=== PATIENT | male | born 1960 | race Caucasian/White ===

== ENCOUNTER 2023-05-02 21:52 | Emergency (ER) | payer SELFPAY ==
--- OUTSIDE RECORDS SUMMARY | 2023-05-02 21:57 | XMS REPORT | Continuity of Care Document ---
:1960 Author Organization [facility] t Address [address] [place] [place] [address] Care Team Providers Name Role Phone Brayden Damon Attending Clinician Unavailable Keith Obrien Attending Clinician Unavailable Merlyn Le Attending Clinician Unavailable Anjum Lafleur Attending Clinician Unavailable Physician, No Primary or Family Admitting Clinician UnavailMerlyn Montoya Admitting Clinician Unavailable Payers Payer Name Policy Type Policy Number Effective Date Expiration Date S ource Problems This patient has no known problems. Allergies, Adverse Reactions, Alerts Allergy Allergy Status Severity Reaction(s) Onset Inactive Treating Comm ents Source Name Type Date Date Clinician [place]ulf[place] DA Active [place] RASH 2022-0 [facility] (Sulfona 5-13 Clear mide 00:00: Judd Antibiot 00 [facility] lisinopr DA Active [place] ANGIOEDEMA [facility] [place] 5-13 Clear 00:00: Judd 00 [facility] Unable DA Active [facility]22[facility] Assess 00:00: 00 No Known DA Active U 0 [place] [facility] Drug 4-26 Allergie 00:00: s 00 [place]ulf[place] DA Active [place] 2022-0 [facility] (Sulfona 4-23 [place] mide 00:00: d Antibiot [address] [place] [address] lisinopr DA Active [place] ANGIOEDEMA [facility] [place] 4-23 [place] 00:00: d 00 [facility] lisinopr DA Active [place] ANGIOEDEMA [facility] [place] 4-14 [place] 00[facility]: d 00 [facility] [place] R[place] [facility] ([place]ulf[place] 4-06 Clear mide 00:00: Judd Antibiot 00 [facility] Sulf[place] DA Active [place] R[place] [facility] ([place]ulf[place] 4-04 [place] m[place] 00:00: d Antibiot 00 [facility] Sulfa DA Active [place] 2019-11 [facility] (Sulfona 0-04 [place] m[facility] 00:00: d Antibiot 00 [facility] [place] 2019-11 [facility] ([place]ulf[place] 0-04 [place] m[place] 00:00: d Antibiot 00 [facility] Center Sulfa DA Active U [facility] (Sulfona 9-15 [place] m[place] 00:00: d Antibiot 00 [facility] ics[facility] Center Sulfa DA Active U UNK [facility] (Sulfona 9-15 [place] mide 00:00: d Antibiot 00 [facility] ics) Center Medications This patient has no known medications. Procedures Procedure Date / Time Performed Performing Clinician Sourc e [id number] 2022-02-26 00:00:00 [facility] [id number] 2022-02-26 00:00:00 [facility] [id number] 2022-02-26 00:00:00 [facility] [id number] 2022-02-25 00:00:00 [facility] Encounters Start End Encounter Admission Attending Care Care Encounter Source Date/Time Date/Time Type Type Clinicians Facility Department ID 2020-08-26 Inpatient HCAMN CHARAN [id number] [facility] 11:19:00 94 [facility] 2023-04-04 2023-04-09 Emergency EM HENNY Damon MEXP [id number] [facility] 00:06:00 07:45:00 Brayden 09 [facility] 2023-04-04 2023-04-04 Outpatient JH Damon LABRukhsana [id number] [facility] 23:07:00 23:07:00 [facility] 2023-[facility]-18 Emergency [facility] [id number] [place] [facility] 09:48:00 09:48:00 75 2023-03-18 2023-03-18 Emergency Emergency Camille, [facility] [id number] [place] [facility] 09:48:00 09:48:00 Keith 75 2023-03-15 2023-03-17 Emergency EM Nelson, [facility] MEXP [id number] [facility] 09:43:00 12:52:00 Brayden 18 [facility] 2022-02-25 2022-03-11 Emergency EM Rey, [facility] [id number] [facility] 03:28:00 15:45:00 Merlyn 92 [facility] 2022-02-26 2022-02-26 Outpatient Le, [facility] LABO [id number] [facility] 23:10:00 23:10:00 Merlyn 12 [facility] 2021-12-11 2021-12-11 Emergency EM Miquel, [facility] MEXP [id number] [facility] 03:24:00 17:17:00 DeShauris 18 [facility] Results Test Description Test Time Test Comments Results Result Comments Source BASIC METABOLIC PANEL 2023-04-04 01:16:00 Test Item Value Reference Range Interpretation Comme nts SODIUM (test code = NA) 136 mmol/l 134.0-147.0 N POTASSIUM (test code = K) 3.4 mmol/L 3.6-5.2 L CHLORIDE (test code = CL) 100 mmol/l 98.0-107.0 N CARBON DIOXIDE (test code = 23.2 mmol/l 21.0-33.0 N CO2) ANION GAP (test code = GAP) 16.2 0-20 N GLUCOSE (test code = GLU) 88 mg/dl 70.0-110.0 N BLOOD UREA NITROGEN (test 16 mg/dl 7.0-18.0 N code = BUN) GLOMERULAR FILTRATION RATE 78 mL/min T he Glomerular Filtration Rate (test code = GFR) is a calcu lated parameterbased on serum Creati nine, patient age and sex. GF R valuesless than 60 mL/min/ 1.73 square meters are miya cative ofChronic Kidney Disease. Values less than 15 mL/min/ 1.73square meters indicate Kidney failure. The calculation forGFR is based on the CKD-EPI (2020) calculation. Th is formulais race indifferen t and is the recommended for dior for GFRby the National [facility] for Adults.The GFR will not calculate if th e sex is unknown or if thepatien t's age is <18 years. CREATININE (test code = 1.08 mg/dL 0.60-1.30 N CREAT) CALCIUM (test code = CA) 9.2 mg/dl 8.0-10.5 N ESTIMATED CREAT CLEARANCE 71 mL/min >30 (test code = ECRCL) HEPATIC FUNCTION PANEL [id number] 01:16:00 Test Item Value Reference Range Interpretation Comments TOTAL PROTEIN (test code = PROT) 7.4 GM/DL 6.0-8.1 N ALBUMIN (test code = ALB) 4.0 gm/dL 3.2-4.7 N BILIRUBIN TOTAL (test code = BILT) 0.6 mg/dl 0.0-1.0 N BILIRUBIN DIRECT (test code = 0.2 mg/dl 0.0-0.3 N BILD) SGOT/AST (test code = AST) 32 Units/L 15-37 N SGPT/ALT (test code = ALT) 32 Units/L 12.0-78.0 N ALKALINE PHOSPHATASE TOTAL (test 80 Units/L 50.0-136.0 N code = ALKP) [id number] 01:16:00 Test Item Value Reference Range Interpretation Comments ACETAMINOPHEN (test <2.0 mcg/ml 10.0-30.0 L Result i s in code = ACET) Microgram per milliliter. [id number] 01:16:00 Test Item Value Reference Range Interpretation Comments SALICYLATE (test code = SHWAN) 1.1 mg/dl 2.8-20.0 L [id number] 01:16:00 Test Item Value Reference Range Interpretation Comments ALCOHOL (test code 0.00 gm/dL 0.00-0.00 N ETHYL ALC OHOL VALUES - = ALC) INTERPRETATION: 0.050 GM/DL - NOT INT OXICATED 0.100 GM/DL - INTOXICATED 0.3 50-0.450 GM/DL - SEVEREL Y INTOXICATED 0.5 50 GM/DL- FATAL INTOXICAT ION COVID 19 Asymptomatic IH [id number] 01:15:00 Test Item Value Reference Range Interpretation Comments COVID 19 NEGATIVE NEGATIVE Negative result s should be Asymptomatic IH AG treated a s presumptive and (test code = ifinconsistent with COVNONPUIAG) clinical signs and symptoms, or ne cessaryfor patient managem ent, should be tested with an alternativemole cular assay. Negative results do not preclude OGRC-[id number]-[id number] tion and should not be u sed as the sole basis forp atient management deci sions. Negative result s should beconsidered in the context of a pa tient's recent exposure s,history, presence of cli nical signs and symptoms consistentwith COVID-19. DRUGS OF ABUSE SCREEN [id number] 01:13:00 Test Item Value Reference Interpretation Comments Range URN COCAINE (test POSITIVE NEGATIVE A UNCONFIRME D INITIAL code = COCAURN) SCREENING ON LY; SUGGEST ADDITIONALCONFI RMATORY TESTING.Cocaine cut-off concentration: 300 ng/mL URN CANNABINOIDS NEGATIVE NEGATIVE Cannabinoid s cut-off (test code = concentration: 50 ng/mL CANNABURN) URN AMPHETAMINE POSITIVE NEGATIVE A UNCONFIRMED INITIAL (test code = SCREENING ONLY; SUGGEST AMPHETURN) ADDITIONALCONFI RMATORY TESTING.Ampheta mine cut-off concentration: 1000 ng/mL URN BARBITURATE NEGATIVE NEGATIVE Barbiturate cut-off (test code = concentration: 200 ng/mL BARBITURN) URN BENZODIAZEPINE NEGATIVE NEGATIVE Benzodiaz epine cut-off (test code = concentration: 200 ng/mL BENZOURN) URN OPIATES (test NEGATIVE NEGATIVE Opiates cu t-off code = OPIATURN) concentrati on: 2000 ng/mL URN PHENCYCLIDINE NEGATIVE NEGATIVE Phencyclid ine(PCP) cut-off (PCP) (test code = concentra tion: 25 ng/ml PHENCURN) URN METHADONE (test NEGATIVE NEGATIVE Methadon e cut-off code = METHAURN) concentrati on: 300 ng/mL WHAT DRUGS HAVE BEEN TAKEN? screenUA RFLX MICR CULT IF [id number] 01:08:00 Test Item Value Reference Range Interpretation Comments UA COLOR (test code = DARK YELLOW COLU) UA APPEARANCE (test code CLEAR = APPU) UA GLUCOSE DIPSTICK NORMAL mg/dl NORMAL (test code = DGLUU) UA BILIRUBIN DIPSTICK 1 mg/dL mg/dL NEGATIVE A (test code = BILU) UA KETONE DIPSTICK (test 15 mg/dl mg/dl NEGATIVE A code = KETU) UA SPECIFIC GRAVITY 1.025 1.000-1.030 (test code = SGU) UA BLOOD DIPSTICK (test 10 Vega/micL Vega/micL NEGATIVE A code = TAMAR) UA PH DIPSTICK (test 6.0 5.0-9.0 code = LÁZARO) UA PROTEIN DIPSTICK 30 mg/dl NEGATIVE (test code = PROU) UA UROBILINIOGEN 4.0 mg/dl mg/dl NORMAL A DIPSTICK (test code = URO) UA NITRITE DIPSTICK NEGATIVE NEGATIVE (test code = MALIK) UA LEUKOCYTE ESTERASE 100 Eloy/micL Eloy/micL NEGATIVE A DIPSTICK (test code = LEUU) UA WBC (test code = 10-15 WBC/HPF NONE A WBCU) UA RBC (test code = 0-2 RBC/HPF 0-3 RBCU) UA EPITHELIAL CELLS 1-3 EPI/HPF 0-3 (test code = EPIU) UA BACTERIA (test code = FEW NONE BACU) UA CALCIUM OXALATE MOD CRYSTALS (test code = CAOXU) UA MUCUS (test code = 3+ MUCU) UA AMORPHOUS SEDIMENT MOD NONE (test code = AMORU) UA SPERM (test code = SPERMATOZOA SEEN SPERMU) Indication for culture: Dysuria/FrequencySpecimen Description: CLEAN CATCHCBC W/AUTO [id number] 00:58:00 Test Item Value Reference Range Interpretation Comments WHITE BLOOD CELL (test code = 10.1 K/mm3 4.5-11.0 N WBC) RED BLOOD CELL (test code = 4.38 M/mm3 4.40-5.90 L RBC) HEMOGLOBIN (test code = HGB) 13.0 gm/dL 13.0-17.0 N HEMATOCRIT (test code = HCT) 38.5 % 36.0-48.0 N MEAN CELL VOLUME (test code = 87.9 UM3 80.0-94.0 MCV) MEAN CELL HGB (test code = MCH) 29.7 UUG 25.5-32.5 N MEAN CELL HGB CONCETRATION 33.8 gm/dL 29.0-35.5 N (test code = MCHC) RED CELL DISTRIBUTION WIDTH 13.2 % 11.5-15.0 N (test code = RDW) RED CELL DISTRIBUTION WIDTH SD 42.7 fL 34.8-50.2 N (test code = RDW-SD) PLATELET COUNT (test code = 296 K/mm3 150-400 N PLT) MEAN PLATELET VOLUME (test code 10.1 fl 7.4-10.4 N = MPV) NEUTROPHIL % (test code = NT%) 66.4 % 49.0-76.0 N IMMATURE GRANULOCYTE % (test 0.3 % 0.0-0.4 N code = IG%) LYMPHOCYTE % (test code = LY%) 19.5 % 23.0-38.0 L MONOCYTE % (test code = MO%) 11.4 % 1.0-10.0 H EOSINOPHIL % (test code = EO%) 1.8 % 1.0-5.0 N BASOPHIL % (test code = BA%) 0.6 % 0.0-1.0 N NUCLEATED RBC % (test code = 0.0 % 0.0-0.1 N NRBC%) NEUTROPHIL # (test code = NT#) 6.7 K/mm3 2.4-6.3 H IMMATURE GRANULOCYTE # (test 0.03 x10 3/uL 0.00-0.07 N code = IG#) LYMPHOCYTE # (test code = LY#) 2.0 K/mm3 1.2-4.0 N MONOCYTE # (test code = MO#) 1.2 K/mm3 0.0-0.6 H EOSINOPHIL # (test code = EO#) 0.2 K/MM3 0.0-0.7 N BASOPHIL # (test code = BA#) 0.1 K/mm3 0.0-0.2 N NUCLEATED RBC # (test code = 0.00 X10 3uL 0.00-0.01 N NRBC#) UA, Urinalysis Rflx [id number] 10:08:00 Test Item Value Reference Range Interpretation Comments Color,Urine (test code = UCOL) Yellow Yellow Clarity,Urine (test code = Clear Clear UCLAR) Ph, Urine (test code = UPH) 7.0 5.0-9.0 N Specific [place],Urine (test 1.025 1.005-1.030 N code = USG) Blood,Urine (test code = UBLD) Negative mg/dL Negative Protein,Urine (test code = Trace mg/dL Negative A UPRO) Glucose,Urine (UA) (test code Negative mg/dL Negative = UGLU) Ketones,Urine (test code = 15 mg/dL Negative A UKET) Nitrate,Urine (test code = Negative Negative UNIT) Bilirubin,Urine (test code = Negative mg/dL Negative UBIL) Urobilinogen,Urine (test code 1.0 E.U./dL Normal = UURO) Leukocyte Esterase,Urine (test Trace mg/dL Negative A code = ULEU) Drug Screen,[id number] 10:08:00 Test Item Value Reference Range Interpretation Comments PCP Phencyclidine Screen,Urine (test Negative Negative code = PCPU) Amphetamine Screen,Urine (test code Negative Negative = AMPU) Methadone Screen,Urine (test code = Negative Negative METHU) Opiate Screen,Urine (test code = Negative Negative UOPIS) Barbituates Screen,Urine (test code Negative Negative = BARBU) Benzodiazepines Screen,Urine (test Negative Negative code = UBENZS) Cocaine Screen,Urine (test code = Positive Negative A UCOCS) Cannabinoid Screen,Urine (test code Positive Negative A = UTHCS) Propoxyphene Screen, Urine (test Negative Negative code = UPROP) Urine [id number] 10:08:00 Test Item Value Reference Range Interpretation Comments RBC,Urine (test code = URBCUF) 6-10 /HPF 0-2 A WBC,Urine (test code = UWBCUF) 0-5 /HPF 0-5 Epithelial Cell,Urine (test None Seen /HPF 0-5 code = UECUF) Casts,Urine (test code = 0-5 /LPF None Seen UCASTUF) Bacteria,Urine (test code = None Seen /hpf None Seen UBACTUF) Complete Blood Count Auto [id number] 09:53:00 Test Item Value Reference Range Interpretation Comments White Blood Count (test code = 8.2 x10 3/uL 4.4-10.5 N WBCT) Red Blood Count (test code = 4.60 x10 6/uL 4.10-5.70 N RBC) Hemoglobin (test code = HGBT) 13.9 g/dL 13.4-17.4 N Hematocrit (test code = HCTT) 43.0 % 38.7-52.0 N Mean Corpuscular Volume (test 93.50 fL 80.00-100.00 N code = MCV) Mean Corpuscular Hemoglobin 30.2 pg 27.0-32.5 N (test code = MCH) Mean Corpuscular HGB Conc (test 32.30 g/dL 32.00-37.50 N code = MCHC) RDW Coefficient of Variation 14.1 % 11.5-14.5 N (test code = RDWCV) Platelet Count (test code = 225 x10 3/uL 140.0-440.0 N PLTT) Mean Platelet Volume (test code 10.0 fL = MPV) Immature Granulocytes % (Auto) 0.2 % 0.0-5.0 N (test code = IMMGRAN%) Neutrophils % (Auto) (test code 69.3 % 36.0-70.0 N = NE%) Lymphocytes % (Auto) (test code 18.4 % 12.0-44.0 N = LY%) Monocytes % (Auto) (test code = 10.7 % 0.0-11.0 N MO%) Eosinophils % (Auto) (test code 1.0 % 0.0-7.0 N = EO%) Basophils % (Auto) (test code = 0.4 % 0.0-2.0 N BA%) Immature Granulocytes # (Auto) 0.02 x10 3/uL (test code = IMMGRAN#) Neutrophils # (Auto) (test code 5.7 x10 3/uL 1.6-7.4 N = NE#) Lymphocytes # (Auto) (test code 1.51 x10 3/uL 0.50-4.60 N = LY#) Monocytes # (Auto) (test code = 0.88 x10 3/uL 0.00-1.20 N MO#) Eosinophils # (Auto) (test code 0.08 x10 3/uL 0.00-0.74 N = EO#) Basophils # (Auto) (test code = 0.03 x10 3/uL 0.00-0.21 N BA#) nRBC Abs (test code = NRBCA) 0 nRBC Pct (test code = NRBCP) 0 % Comprehensive Metabolic [id number] 09:53:00 Test Item Value Reference Range Interpretation Comments SODIUM (test code = NA) 138.0 mmol/L 136.0-145.0 N Potassium,K (test code = 3.8 mmol/L 3.0-5.1 N K) Chloride (test code = 105 mmol/L 98-107 N CL) Carbon Dioxide (test 26 mmol/L 20-31 N code = CO2) Anion Gap (test code = 7 mmol/L 5-15 N GAP) Blood Urea Nitrogen 23 mg/dL 9-23 N (test code = BUN) Creatinine (test code = 1.08 mg/dL 0.55-1.02 H CREATT) Creatinine Clr Calc 70.52 mL/min Pharmacy (test code = CRCLPHA) Estimated Glomerular 78 See_Comment L Reporte d eGFR is Filt Rate (test code = based on the EGFR.XX) CKD-EPI 202 equation thatdo es not use a race coefficient. Additional information can be found at:[id number]_m cb_ egfr_summary_fl rosalia 5.pdf (kidney.o rg) [Automated message] The system which generated this result transmit juan jose reference range : >=90 ml/min/1.73m2. The reference range was not used to interpret this result as normal/abnormal . BUN/Creatinine Ratio 21 ratio 10-20 H (test code = BCRATIO) Glucose (test code = 200 mg/dL 74-106 H GLU) Osmolality,Calculated 295.2 (test code = OSMOC) Calcium (test code = CA) 9.8 mg/dL 8.3-10.6 N Bilirubin,Total (test 0.4 mg/dL 0.2-1.1 N code = BILIT) Aspartate Amino 38 U/L 0-34 H Transferase (test code = AST) Alanine Aminotransferase 24 U/L 10-49 N (test code = ALT) Total Protein (test code 7.3 g/dL 5.7-8.2 N = TP) Albumin Level (test code 4.7 g/dL 3.2-4.8 N = ALB) Globulin (test code = 2.6 mg/dL 2.3-3.5 N GLOB) Albumin/Globulin Ratio 1.8 ratio 0.8-2.0 N (test code = AGRATIO) Alkaline Phosphatase 88 U/L 46-116 N (test code = ALP) Ethanol [id number] 09:53:00 Test Item Value Reference Range Interpretation Comments Ethanol (test code < 3 mg/dL The pharm acological = ETOH) response to blo od alcohol levels mayvary from individual to i ndividual. The fatal hyacinth ntrationhas been reported t o be >400mg/dL. COVID 19 Asymptomatic IH [id number] 15:48:00 Test Item Value Reference Range Interpretation Comments COVID 19 NEGATIVE NEGATIVE Negative result s should be Asymptomatic IH AG treated a s presumptive and (test code = ifinconsistent with COVNONPUIAG) clinical signs and symptoms, or ne cessaryfor patient managem ent, should be tested with an alternativemole cular assay. Negative results do not preclude UFPR-AlC-9sjbtl tion and should not be u sed as the sole basis forp atient management deci sions. Negative result s should beconsidered in the context of a pa tient's recent exposure s,history, presence of cli nical signs and symptoms consistentwith COVID-19. DRUGS OF ABUSE SCREEN [id number] 11:08:00 Test Item Value Reference Interpretation Comments Range URN COCAINE (test POSITIVE NEGATIVE A UNCONFIRME D INITIAL code = COCAURN) SCREENING ON LY; SUGGEST ADDITIONALCONFI RMATORY TESTING.Cocaine cut-off concentration: 300 ng/mL URN CANNABINOIDS POSITIVE NEGATIVE A UNCONFIRMED INITIAL (test code = SCREENING ONLY; SUGGEST CANNABURN) ADDITIONALCONFI RMATORY TESTING.Cannabi noids cut-off concent ration: 50 ng/mL URN AMPHETAMINE NEGATIVE NEGATIVE Amphetamine cut-off (test code = concentration: 1000 ng/mL AMPHETURN) URN BARBITURATE NEGATIVE NEGATIVE Barbiturate cut-off (test code = concentration: 200 ng/mL BARBITURN) URN BENZODIAZEPINE NEGATIVE NEGATIVE Benzodiaz epine cut-off (test code = concentration: 200 ng/mL BENZOURN) URN OPIATES (test NEGATIVE NEGATIVE Opiates cu t-off code = OPIATURN) concentrati on: 2000 ng/mL URN PHENCYCLIDINE NEGATIVE NEGATIVE Phencyclid ine(PCP) cut-off (PCP) (test code = concentra tion: 25 ng/ml PHENCURN) URN METHADONE (test NEGATIVE NEGATIVE Methadon e cut-off code = METHAURN) concentrati on: 300 ng/mL UA RFLX MICR CULT IF [id number] 11:06:00 Test Item Value Reference Range Interpretation Comments UA COLOR (test code = COLU) YELLOW UA APPEARANCE (test code = CLEAR APPU) UA GLUCOSE DIPSTICK (test NORMAL mg/dl NORMAL code = DGLUU) UA BILIRUBIN DIPSTICK (test NEGATIVE mg/dL NEGATIVE code = BILU) UA KETONE DIPSTICK (test NEGATIVE mg/dl NEGATIVE code = KETU) UA SPECIFIC GRAVITY (test 1.015 1.000-1.030 code = SGU) UA BLOOD DIPSTICK (test NEGATIVE Vega/micL NEGATIVE code = TAMAR) UA PH DIPSTICK (test code = 6.5 5.0-9.0 LÁZARO) UA PROTEIN DIPSTICK (test NEGATIVE mg/dl NEGATIVE code = PROU) UA UROBILINIOGEN DIPSTICK NORMAL mg/dl NORMAL (test code = URO) UA NITRITE DIPSTICK (test NEGATIVE NEGATIVE code = MALIK) UA LEUKOCYTE ESTERASE NEGATIVE Eloy/micL NEGATIVE DIPSTICK (test code = LEUU) UA WBC (test code = WBCU) 0-3 WBC/HPF NONE UA RBC (test code = RBCU) 0-2 RBC/HPF 0-3 UA EPITHELIAL CELLS (test 0-3 EPI/HPF 0-3 code = EPIU) UA BACTERIA (test code = FEW NONE BACU) UA MUCUS (test code = MUCU) 1+ Indication for culture: Dysuria/FrequencySpecimen Description: CLEAN CATCHBASIC METABOLIC [id number] 10:26:00 Test Item Value Reference Range Interpretation Comments SODIUM (test code = 134 mmol/l 134.0-147.0 N NA) POTASSIUM (test 4.1 mmol/L 3.6-5.2 N code = K) CHLORIDE (test code 99 mmol/l 98.0-107.0 N = CL) CARBON DIOXIDE 29.3 mmol/l 21.0-33.0 N (test code = CO2) ANION GAP (test 9.8 0-20 N code = GAP) GLUCOSE (test code 81 mg/dl 70.0-110.0 N = GLU) BLOOD UREA NITROGEN 6 mg/dl 7.0-18.0 L (test code = BUN) GLOMERULAR 93 mL/min The Glomerular FILTRATION RATE Filtration R ate is a (test code = GFR) calculated parameterbased on serum Creatinine, pat ient age and sex. GFR va luesless than 60 mL/min/ 1.73 square meters a re indicative ofCh ronic Kidney Disease. Values less than 15 mL/min/1.73squa re meters indicate Kidney failure. The calculation for GFR is based on the CK D-EPI (2020) calculat ion. This formulais race indifferent and is the recommended for dior for GFRby the Nat nal Kidney Foundati on for Adults.The GFR will not calculate if th e sex is unknown or if thepatient's ag e is <18 years. CREATININE (test 0.93 mg/dL 0.60-1.30 N code = CREAT) CALCIUM (test code 8.6 mg/dl 8.0-10.5 N = CA) ESTIMATED CREAT 82 mL/min >30 CLEARANCE (test code = ECRCL) HEPATIC FUNCTION PANEL [id number] 10:26:00 Test Item Value Reference Range Interpretation Comments TOTAL PROTEIN (test code = PROT) 7.1 gm/dL 6.4-8.2 N ALBUMIN (test code = ALB) 3.8 gm/dl 3.2-4.7 N BILIRUBIN TOTAL (test code = BILT) 0.3 mg/dl 0.0-1.0 N BILIRUBIN DIRECT (test code = 0.1 mg/dl 0.0-0.3 N BILD) SGOT/AST (test code = AST) 18 Units/L 15-37 N SGPT/ALT (test code = ALT) 23 Units/L 12.0-78.0 N ALKALINE PHOSPHATASE TOTAL (test 89 Units/L 50.0-136.0 N code = ALKP) [id number] 10:26:00 Test Item Value Reference Range Interpretation Comments ACETAMINOPHEN (test <2.0 mcg/ml 10.0-30.0 L Result i s in code = ACET) Microgram per milliliter. [id number] 10:26:00 Test Item Value Reference Range Interpretation Comments SALICYLATE (test code = SHAWN) 1.4 mg/dl 2.8-20.0 L [id number] 10:26:00 Test Item Value Reference Range Interpretation Comments ALCOHOL (test code 0.00 gm/dL 0.00-0.00 N ETHYL ALC OHOL VALUES - = ALC) INTERPRETATION: 0.050 GM/DL - NOT INT OXICATED 0.100 GM/DL - INTOXICATED 0.3 50-0.450 GM/DL - SEVEREL Y INTOXICATED 0.5 50 GM/DL- FATAL INTOXICAT ION CBC W/AUTO [id number] 10:12:00 Test Item Value Reference Range Interpretation Comments WHITE BLOOD CELL (test code = 5.9 K/mm3 4.5-11.0 N WBC) RED BLOOD CELL (test code = 4.40 M/mm3 4.40-5.90 N RBC) HEMOGLOBIN (test code = HGB) 12.9 gm/dL 13.0-17.0 L HEMATOCRIT (test code = HCT) 40.8 % 36.0-48.0 N MEAN CELL VOLUME (test code = 92.7 UM3 80.0-94.0 N MCV) MEAN CELL HGB (test code = MCH) 29.3 UUG 25.5-32.5 N MEAN CELL HGB CONCETRATION 31.6 gm/dL 29.0-35.5 N (test code = MCHC) RED CELL DISTRIBUTION WIDTH 13.9 % 11.5-15.0 N (test code = RDW) RED CELL DISTRIBUTION WIDTH SD 47.3 fL 34.8-50.2 N (test code = RDW-SD) PLATELET COUNT (test code = 232 K/mm3 150-400 N PLT) MEAN PLATELET VOLUME (test code 10.1 fl 7.4-10.4 N = MPV) NEUTROPHIL % (test code = NT%) 57.1 % 49.0-76.0 N IMMATURE GRANULOCYTE % (test 0.2 % 0.0-0.4 N code = IG%) LYMPHOCYTE % (test code = LY%) 28.2 % 23.0-38.0 N MONOCYTE % (test code = MO%) 9.4 % 1.0-10.0 N EOSINOPHIL % (test code = EO%) 4.1 % 1.0-5.0 N BASOPHIL % (test code = BA%) 1.0 % 0.0-1.0 N NUCLEATED RBC % (test code = 0.0 % 0.0-0.1 N NRBC%) NEUTROPHIL # (test code = NT#) 3.4 K/mm3 2.4-6.3 N IMMATURE GRANULOCYTE # (test 0.01 x10 3/uL 0.00-0.07 N code = IG#) LYMPHOCYTE # (test code = LY#) 1.7 K/mm3 1.2-4.0 N MONOCYTE # (test code = MO#) 0.6 K/mm3 0.0-0.6 N EOSINOPHIL # (test code = EO#) 0.2 K/MM3 0.0-0.7 N BASOPHIL # (test code = BA#) 0.1 K/mm3 0.0-0.2 N NUCLEATED RBC # (test code = 0.00 X10 3uL 0.00-0.01 N NRBC#) BASIC METABOLIC [id number] 08:15:00 Test Item Value Reference Range Interpretation Comments SODIUM (test code = NA) 138 mmol/l 134.0-147.0 N POTASSIUM (test code = K) 4.2 mmol/L 3.6-5.2 N CHLORIDE (test code = CL) 104 mmol/l 98.0-107.0 N CARBON DIOXIDE (test code = CO2) 26.4 mmol/l 21.0-33.0 N ANION GAP (test code = GAP) 11.8 0-20 N GLUCOSE (test code = GLU) 89 mg/dl 70.0-110.0 N BLOOD UREA NITROGEN (test code = 15 mg/dl 7.0-18.0 N BUN) CREATININE (test code = CREAT) 1.30 mg/dL 0.60-1.30 N GFR NON BLACK (test code = 60 mL/min 80-90 L GFRNONBLACK) GFR BLACK (test code = GFRBLACK) 72 mL/min 97-109 L CALCIUM (test code = CA) 9.1 mg/dl 8.0-10.5 N CBC W/AUTO [id number] 08:10:00 Test Item Value Reference Range Interpretation Comments WHITE BLOOD CELL (test code = 7.5 K/mm3 4.5-11.0 N WBC) RED BLOOD CELL (test code = 4.42 M/mm3 4.40-5.90 N RBC) HEMOGLOBIN (test code = HGB) 12.5 gm/dL 13.0-17.0 L HEMATOCRIT (test code = HCT) 38.8 % 36.0-48.0 N MEAN CELL VOLUME (test code = 87.8 UM3 80.0-94.0 N MCV) MEAN CELL HGB (test code = MCH) 28.3 UUG 25.5-32.5 N MEAN CELL HGB CONCETRATION 32.2 gm/dL 29.0-35.5 N (test code = MCHC) RED CELL DISTRIBUTION WIDTH 13.2 % 11.5-15.0 N (test code = RDW) RED CELL DISTRIBUTION WIDTH SD 42.3 fL 34.8-50.2 N (test code = RDW-SD) PLATELET COUNT (test code = 327 K/mm3 150-400 N PLT) MEAN PLATELET VOLUME (test code 10.3 fl 7.4-10.4 N = MPV) NEUTROPHIL % (test code = NT%) 59.2 % 49.0-76.0 N IMMATURE GRANULOCYTE % (test 0.3 % 0.0-0.4 N code = IG%) LYMPHOCYTE % (test code = LY%) 22.1 % 23.0-38.0 L MONOCYTE % (test code = MO%) 11.3 % 1.0-10.0 H EOSINOPHIL % (test code = EO%) 6.3 % 1.0-5.0 H BASOPHIL % (test code = BA%) 0.8 % 0.0-1.0 N NUCLEATED RBC % (test code = 0.0 % 0.0-0.1 N NRBC%) NEUTROPHIL # (test code = NT#) 4.4 K/mm3 2.4-6.3 N IMMATURE GRANULOCYTE # (test 0.02 x10 3/uL 0.00-0.07 N code = IG#) LYMPHOCYTE # (test code = LY#) 1.7 K/mm3 1.2-4.0 N MONOCYTE # (test code = MO#) 0.8 K/mm3 0.0-0.6 H EOSINOPHIL # (test code = EO#) 0.5 K/MM3 0.0-0.7 N BASOPHIL # (test code = BA#) 0.1 K/mm3 0.0-0.2 N NUCLEATED RBC # (test code = 0.00 X10 3uL 0.00-0.01 N NRBC#) - CT CHEST W/O [id number] 06:19:00 [facility] : 1960 Sex: M FAX:Maykel Kruse MD [phone] [place]: St: [facility] FAX: Merlyn Reynaga MD [phone] Name: CINDY SINGH [facility] : 1960 Age/S: 61/M [address] [facility] Unit: [id number] Loc: [address] Phys: [place] [address] Acct: [id number] Dis Date: Status: ADM IN PHONE #: [phone] Exam Date: 03/10/2022 0553 FAX #: [phone] Reason: follow lung abscess EXAMS: CPT CODE: [id number] CT CHEST W/O CONTRAST 77938 EXAM: - CT CHEST W/O CONTRAST HISTORY: follow lung abscess Locationcode:C3 TECHNIQUE: Axial tomograms through the chest were obtained without intravenous contrast. Coronal and sagittal reformatted images are provided. Automated exposure reduction (Auto mA/Smart mA) was utilized in compliance with ACR Image [employer]. COMPARISON: 03/04/2012 Statement: Please note that simple renal cysts or adrenal adenomas are benign and no further imaging follow-up is necessary. FINDINGS: LUNGS: Lesion in the anterior right upper lobe measuring 3.4 x 2.5 cm with central cavitation/necr osis is slightly diminished. Consolidation in the right lower lobe has nearly resolved with trace right effusion diminished. Left effusion has resolved. Calcified pulmonary nodules indicative of old granulomatous disease is seen. VASCULATURE: No thoracic aortic aneurysm. TRACHEOBRONCHIAL TREE: The trachea and lobar bronchi are unremarkable. LYMPHATICS: There is no gross adenopathy accounting for lack of intravenous contrast. VISUALIZED ABDOMEN: Unremarkable. BONES: No acute osseous findings. SOFT TISSUES: Unremarkable. OTHER: No significant additional findings. IMPRESSION: 1. Necrotic/cavitary parenchymal opacity in the right upper lobe has slightly diminished since prior exam. PAGE 1 Signed Report (CONTINUED) FAX: Maykel Kruse MD [phone] [place]: St: [facility] FAX: Merlyn Reynaga MD [phone] Name: CINDY SINGH [facility] : 1960 Age/S: 61/M [address] [facility] Unit: [id number] Loc: [address] Phys: [place] [address] Acct: [id number] Dis Date: Status: ADM INPHONE #: [phone] Exam Date: 03/10/2022 0553 FAX #: [phone] Reason: follow lung abscess EXAMS: CPT CODE: [id number] CT CHEST W/O CONTRAST [address]31 (Continued) 2. Trace right effusion has diminished with improved aeration in the right lower lobe. 3. Left effusion has resolved. at 0619 Reported and signed by: Suman Shannon M.D. CC: Maykel Dominguez MD; Merlyn Le MD Technologist: NEWTON CORNEJO Trnscrd Dt/Tm: 03/10/2022 (0619) [email or web address] Orig Print D/T: S: 03/10/2022 (0623 PAGE 2 Signed ReportBASIC METABOLIC [id number] 08:32:00 Test Item Value Reference Range Interpretation Comments SODIUM (test code = NA) 134 mmol/l 134.0-147.0 N POTASSIUM (test code = K) 4.3 mmol/L 3.6-5.2 N CHLORIDE (test code = CL) 103 mmol/l 98.0-107.0 N CARBON DIOXIDE (test code = CO2) 24.0 mmol/l 21.0-33.0 N ANION GAP (test code = GAP) 11.3 0-20 N GLUCOSE (test code = GLU) 85 mg/dl 70.0-110.0 N BLOOD UREA NITROGEN (test code = 16 mg/dl 7.0-18.0 N BUN) CREATININE (test code = CREAT) 1.15 mg/dL 0.60-1.30 N GFR NON BLACK (test code = 69 mL/min 80-90 L GFRNONBLACK) GFR BLACK (test code = GFRBLACK) 83 mL/min 97-109 L CALCIUM (test code = CA) 8.9 mg/dl 8.0-10.5 N CBC W/AUTO [id number] 08:29:00 Test Item Value Reference Range Interpretation Comments WHITE BLOOD CELL (test code = 8.8 K/mm3 4.5-11.0 N WBC) RED BLOOD CELL (test code = 4.47 M/mm3 4.40-5.90 N RBC) HEMOGLOBIN (test code = HGB) 12.7 gm/dL 13.0-17.0 L HEMATOCRIT (test code = HCT) 39.8 % 36.0-48.0 N MEAN CELL VOLUME (test code = 89.0 UM3 80.0-94.0 N MCV) MEAN CELL HGB (test code = MCH) 28.4 UUG 25.5-32.5 N MEAN CELL HGB CONCETRATION 31.9 gm/dL 29.0-35.5 N (test code = MCHC) RED CELL DISTRIBUTION WIDTH 13.6 % 11.5-15.0 N (test code = RDW) RED CELL DISTRIBUTION WIDTH SD 44.4 fL 34.8-50.2 N (test code = RDW-SD) PLATELET COUNT (test code = 399 K/mm3 150-400 N PLT) MEAN PLATELET VOLUME (test code 10.3 fl 7.4-10.4 N = MPV) NEUTROPHIL % (test code = NT%) 61.3 % 49.0-76.0 N IMMATURE GRANULOCYTE % (test 0.5 % 0.0-0.4 H code = IG%) LYMPHOCYTE % (test code = LY%) 18.9 % 23.0-38.0 L MONOCYTE % (test code = MO%) 12.0 % 1.0-10.0 H EOSINOPHIL % (test code = EO%) 6.6 % 1.0-5.0 H BASOPHIL % (test code = BA%) 0.7 % 0.0-1.0 N NUCLEATED RBC % (test code = 0.0 % 0.0-0.1 N NRBC%) NEUTROPHIL # (test code = NT#) 5.4 K/mm3 2.4-6.3 N IMMATURE GRANULOCYTE # (test 0.04 x10 3/uL 0.00-0.07 N code = IG#) LYMPHOCYTE # (test code = LY#) 1.7 K/mm3 1.2-4.0 N MONOCYTE # (test code = MO#) 1.1 K/mm3 0.0-0.6 H EOSINOPHIL # (test code = EO#) 0.6 K/MM3 0.0-0.7 N BASOPHIL # (test code = BA#) 0.1 K/mm3 0.0-0.2 N NUCLEATED RBC # (test code = 0.00 X10 3uL 0.00-0.01 N NRBC#) [id number] 16:18:00 Test Item Value Reference Range Interpretation Comments GLUBED (test code = GLUBED) 97 mg/dL 70-110 N [id number] 11:13:00 Test Item Value Reference Range Interpretation Comments GLUBED (test code = GLUBED) 80 mg/dL 70-110 N [id number] 07:24:00 Test Item Value Reference Range Interpretation Comments GLUBED (test code = GLUBED) 91 mg/dL 70-110 N [id number] 20:14:00 Test Item Value Reference Range Interpretation Comments GLUBED (test code = GLUBED) 100 mg/dL 70-110 N [id number] 14:56:00 Test Item Value Reference Range Interpretation Comments GLUBED (test code = GLUBED) 107 mg/dL 70-110 N [id number] 13:20:00 Test Item Value Reference Range Interpretation Comments GLUBED (test code = GLUBED) 127 mg/dL 70-110 H [id number] 07:49:00 Test Item Value Reference Range Interpretation Comments GLUBED (test code = GLUBED) 91 mg/dL 70-110 N [id number] 19:44:00 Test Item Value Reference Range Interpretation Comments GLUBED (test code = GLUBED) 110 mg/dL 70-110 N [id number] 15:28:00 Test Item Value Reference Range Interpretation Comments GLUBED (test code = GLUBED) 111 mg/dL 70-110 H [id number] 11:20:00 Test Item Value Reference Range Interpretation Comments GLUBED (test code = GLUBED) 205 mg/dL 70-110 H [id number] 07:25:00 Test Item Value Reference Range Interpretation Comments GLUBED (test code = GLUBED) 128 mg/dL 70-110 H [id number] 06:27:00 Test Item Value Reference Range Interpretation Comments CREATININE (test code = CREAT) 1.27 mg/dL 0.60-1.30 N [id number] 21:43:00 Test Item Value Reference Range Interpretation Comments GLUBED (test code = GLUBED) 97 mg/dL 70-110 N AG ASPER [id number] 20:02:00 Test Item Value Reference Range Interpretation Comments AG ASPER GALACTOMANNAN 0.04 Index 0.00-0.49 Perfo rmed At: [facility] (test code = ASPGAG) [facility] Fbvcnqt3850 [address] [place] [id number] Earle S MD Ph:[phone] ST PERFORMED AT [address] 770 40 - CT CHEST W/O [id number] 09:49:00 [facility] : 1960 Sex: M FAX:Y Merlyn Le MD [phone] [place]: St: ADM Name: CINDY SINGH [facility] : 1960 Age/S: 61/M [address] [facility] Unit: [id number] Loc: [address] Phys: [place] [address] Acct: [id number] Dis Date: Status: ADM IN PHONE #: [phone] Exam Date: 03/04/2022 0934 FAX #: [phone] Reason: R lung lesion EXAMS: CPT CODE: [id number] CT CHEST W/O CONTRAST 08159 HISTORY: Right lung lesion. CT chest, unenhanced. Reformatted sagittal and coronal images. COMPARISON: February 25, 2022 Automated exposure control, iterative reconstruction technique, and/or adjustment of mA and/or kV according to patient's size was utilized for optimum radiation dose reduction. No intravenous contrast was administered. Significant pathology may be obscured. The rounded anterior right chest wall lesion is seen to have thin ellis and decreased central fluid component. Measuring at the same location, the structure now is 3.4 x 3.3 cm, previously 5.3 x 4.4 cm. The right effusion is small. There may be slightly more right lower lobe atelectasis components present. Small right effusion present. The lungs show good inflation. Cardiac mediastinal outlines are intact. Normal aortic diameter. Bony structures stable.. IMPRESSION: Considerably smaller size to the anterior right upper lobe lesion. The elils appear to be thinner and less central fluid present, all findings suggesting lung abscess/infection responding to treatment. Follow-up in another 4- 5 days may be helpful More atelectasis in the lower lobes, less likely pneumonia with effusions present, small or [id number]-[id number] on the right and trace on the left. Location: U19 at 0949 Reported and signed by: Tomas Walters MD PAGE 1 Signed Report (CONTINUED) FAX: Merlyn Reynaga MD [phone] [place]: St: ADM Name: CINDY SINGH [facility] : 1960 Age/S: 61/M [address] [facility] Unit: [id number] Loc: [address] Phys: [place] [address] Acct: [id number] Dis Date: Status: ADM IN PHONE #: [phone] Exam Date: 03/04/2022933 FAX #: [phone] Reason: R lung lesion EXAMS: CPT CODE: [id number] CT CHEST W/O CONTRAST 63535 (Continued) CC: Merlyn Mercado MD Technologist: MARIA LUZ PERSAUD Trnscrd Dt/Tm: 03/04/2022 (0949) [id number] Orig Print D/T: S: 03/04/2022 (0953 PAGE 2 Signed [id number] 2022-03-04 08:05:00 Test Item Value Reference Range Interpretation Comments HGBA1C% (test code = HGBA1C%) 6.5 %A1C 4.8-6.0 H ESTIMATED AVERAGE GLUCOSE (test 140 MG/DL code = EAG) CBC W/AUTO [id number] 07:34:00 Test Item Value Reference Range Interpretation Comments WHITE BLOOD CELL (test code = 10.2 K/mm3 4.5-11.0 N WBC) RED BLOOD CELL (test code = 4.06 M/mm3 4.40-5.90 L RBC) HEMOGLOBIN (test code = HGB) 11.6 gm/dL 13.0-17.0 L HEMATOCRIT (test code = HCT) 35.8 % 36.0-48.0 L MEAN CELL VOLUME (test code = 88.2 UM3 80.0-94.0 N MCV) MEAN CELL HGB (test code = MCH) 28.6 UUG 25.5-32.5 N MEAN CELL HGB CONCETRATION 32.4 gm/dL 29.0-35.5 N (test code = MCHC) RED CELL DISTRIBUTION WIDTH 13.4 % 11.5-15.0 N (test code = RDW) RED CELL DISTRIBUTION WIDTH SD 43.1 fL 34.8-50.2 N (test code = RDW-SD) PLATELET COUNT (test code = 428 K/mm3 150-400 H PLT) MEAN PLATELET VOLUME (test code 10.0 fl 7.4-10.4 N = MPV) NEUTROPHIL % (test code = NT%) 71.6 % 49.0-76.0 N IMMATURE GRANULOCYTE % (test 0.4 % 0.0-0.4 N code = IG%) LYMPHOCYTE % (test code = LY%) 14.1 % 23.0-38.0 L MONOCYTE % (test code = MO%) 9.4 % 1.0-10.0 N EOSINOPHIL % (test code = EO%) 4.0 % 1.0-5.0 N BASOPHIL % (test code = BA%) 0.5 % 0.0-1.0 N NUCLEATED RBC % (test code = 0.0 % 0.0-0.1 N NRBC%) NEUTROPHIL # (test code = NT#) 7.3 K/mm3 2.4-6.3 H IMMATURE GRANULOCYTE # (test 0.04 x10 3/uL 0.00-0.07 N code = IG#) LYMPHOCYTE # (test code = LY#) 1.4 K/mm3 1.2-4.0 N MONOCYTE # (test code = MO#) 1.0 K/mm3 0.0-0.6 H EOSINOPHIL # (test code = EO#) 0.4 K/MM3 0.0-0.7 N BASOPHIL # (test code = BA#) 0.1 K/mm3 0.0-0.2 N NUCLEATED RBC # (test code = 0.00 X10 3uL 0.00-0.01 N NRBC#) VANCOMYCIN [id number] 18:30:00 Test Item Value Reference Range Interpretation Comments VANCOMYCIN TROUGH 17.1 mcg/mL 10-20 N Other dise ase (test code = VANCT) associat ed reference ranges: 10 - 15 mcg/mL Cellulit is, urinary tract infection 15 - 20 mcg/mL Bacterem ia, infective endocarditis, osteomyelitis, meningitis, pneumonia, darleen re skin/soft tissu e infection, spin al abscess 1009/03/03/22-PHARMACY CALLED AND NEEDS THE TROUGH DRAWN [id number] METABOLIC [id number] 11:25:00 Test Item Value Reference Range Interpretation Comments SODIUM (test code = NA) 139 mmol/l 134.0-147.0 N POTASSIUM (test code = K) 4.0 mmol/L 3.6-5.2 N CHLORIDE (test code = CL) 102 mmol/l 98.0-107.0 N CARBON DIOXIDE (test code = CO2) 26.5 mmol/l 21.0-33.0 N ANION GAP (test code = GAP) 14.5 0-20 N GLUCOSE (test code = GLU) 241 mg/dl 70.0-110.0 H BLOOD UREA NITROGEN (test code = 15 mg/dl 7.0-18.0 N BUN) CREATININE (test code = CREAT) 1.28 mg/dL 0.60-1.30 N GFR NON BLACK (test code = 61 mL/min 80-90 L GFRNONBLACK) GFR BLACK (test code = GFRBLACK) 73 mL/min 97-109 L CALCIUM (test code = CA) 9.1 mg/dl 8.0-10.5 N CBC W/AUTO [id number] 11:10:00 Test Item Value Reference Range Interpretation Comments WHITE BLOOD CELL (test code = 8.9 K/mm3 4.5-11.0 N WBC) RED BLOOD CELL (test code = 4.21 M/mm3 4.40-5.90 L RBC) HEMOGLOBIN (test code = HGB) 12.1 gm/dL 13.0-17.0 L HEMATOCRIT (test code = HCT) 38.1 % 36.0-48.0 N MEAN CELL VOLUME (test code = 90.5 UM3 80.0-94.0 N MCV) MEAN CELL HGB (test code = MCH) 28.7 UUG 25.5-32.5 N MEAN CELL HGB CONCETRATION 31.8 gm/dL 29.0-35.5 N (test code = MCHC) RED CELL DISTRIBUTION WIDTH 13.3 % 11.5-15.0 N (test code = RDW) RED CELL DISTRIBUTION WIDTH SD 44.1 fL 34.8-50.2 N (test code = RDW-SD) PLATELET COUNT (test code = 431 K/mm3 150-400 H PLT) MEAN PLATELET VOLUME (test code 10.2 fl 7.4-10.4 N = MPV) NEUTROPHIL % (test code = NT%) 74.2 % 49.0-76.0 N IMMATURE GRANULOCYTE % (test 0.3 % 0.0-0.4 N code = IG%) LYMPHOCYTE % (test code = LY%) 12.9 % 23.0-38.0 L MONOCYTE % (test code = MO%) 7.0 % 1.0-10.0 N EOSINOPHIL % (test code = EO%) 4.9 % 1.0-5.0 N BASOPHIL % (test code = BA%) 0.7 % 0.0-1.0 N NUCLEATED RBC % (test code = 0.0 % 0.0-0.1 N NRBC%) NEUTROPHIL # (test code = NT#) 6.6 K/mm3 2.4-6.3 H IMMATURE GRANULOCYTE # (test 0.03 x10 3/uL 0.00-0.07 N code = IG#) LYMPHOCYTE # (test code = LY#) 1.2 K/mm3 1.2-4.0 N MONOCYTE # (test code = MO#) 0.6 K/mm3 0.0-0.6 N EOSINOPHIL # (test code = EO#) 0.4 K/MM3 0.0-0.7 N BASOPHIL # (test code = BA#) 0.1 K/mm3 0.0-0.2 N NUCLEATED RBC # (test code = 0.00 X10 3uL 0.00-0.01 N NRBC#) VANCOMYCIN [id number] 19:17:00 Test Item Value Reference Range Interpretation Comments VANCOMYCIN TROUGH 9.0 mcg/mL 10-20 L Other dise ase (test code = VANCT) associat ed reference ranges: 10 - 15 mcg/mL Cellulit is, urinary tract infection 15 - 20 mcg/mL Bacterem ia, infective endocarditis, osteomyelitis, meningitis, pneumonia, darleen re skin/soft tissu e infection, spin al abscess CYTOLOGY NON [id number] 15:48:00 Test Item Value Reference Range Interpretation Comments CYTOLOGY NON MILLINERY DEPARTMENT MANAGER (test code = CR) R UN DATE: 02/28/22 [facility] - Lab PAGE 1 RUN TIME: 1548 Specimen Inquiry RUN USER: INTERFACE P ATIENT: CINDY SINGH LOC: E4WW U #: [id number] AGE/SX: 61/M ROOM: [facility] RE02/25/22REG DR: Merlyn Le MD : 60 BED: 1 DIS: STATUS: ADM IN TLOC: SPEC #: [id number] RECD: 02/26/22 STATUS: ELIA [place] #: [id number] VERONIQUE: 02/26/22- SUBM DR: Merlyn Le MD ENTERED: 02/26/22 SP TYPE: CYTO NGYN OTHR DR: No Primary or Family Physician Self Referred Jaziel Castro MD, Bilal MDORDERED: 13833, GM LEVEL 4, ANATOMIC SPEC COPIES TO: No Primary or Family Physician Self Referred Jaziel Castro MD [address] [place], [place] [address] Sondra Stephens MD [address] [place] [id number] Merlyn Le MD [address] [facility] [address] [place] [id number] [email or web address] PROCEDURES: 35171 (02/26/22) GM LEVEL 4 (02/28/22-1540) TISSUES: A. BRONCHIAL WASHING (CYTOSPIN) - BILATERAL BRONCHIAL WASHING CLINICAL HISTORY SAME FINAL DIAGNOSIS Bronchial washing, bilateral, cytology (cytospin and cell block): Degenerated cell debrisand rare viable macrophages. CONTINUED ON NEXT PAGE R UN DATE: 02/28/22 [facility] PAGE 2 RUN TIME: 1548 Specimen Inquiry RUN USER: INTERFACE S PEC #: [id number] PATIENT: CINDY SINGH #[id number] (Continued) GROSS DESCRIPTION Received without fixative labeled "bilateral bronchial washing" is 20 cc white body fluid,processed for cytospin and cell block for cytology evaluation. Technical component performed [facility],[address] [place] [address] Unless gross only, the diagnosis is based upon microscopic examination.Immunohistochemistr y: This test was developed and its performance characteristicsdetermined by this laboratory. It has not been approved nor does it need approvalby the [place] FDA. Appropriate positive and negative controls are reviewed and judgedto be acceptable. This laboratory is certified under the Clinical Laboratory ImprovementAmendments (CLIA-88) as qualified to perform high complexity clinical laboratory testing. MICROSCOPIC DESCRIPTION The professional interpretation of this case is performedat the [facility], [address] [place] [address] (CLIA# [id number]). CLINICAL INFORMATION CARITARY LUNG MASS --- Signed SIGNATURE ON FILE Freddy Smithkimberly 02/28/22 1548 END OF REPORT - XR CHEST 1 [id number] 07:23:00 [facility] : 1960 Sex: M FAX:Porfirio Arreaga MD [phone] [place]: St: [facility] FAX: Merlyn Reynaga MD [phone] -------- Name: DARELLANTHONYCINDY [facility] : 1960 Age/S: 61/M [address] [facility] Unit #: [id number] Loc: [address] Phys: [place] [address] Acct: [id number] Dis Date: Status: ADM IN PHONE #: [phone] Exam Date: 02/28/202252 FAX #: [phone] Reason: Followup, right upper lobe cavitary mass EXAMS: CPT CODE: [id number] XR CHEST 1 V 42733 EXAM: - XR CHEST 1 V CLINICAL HISTORY: Followup, right upper lobe cavitary mass TECHNIQUE: Single frontal view. COMPARISON: CT chest 02/25/2022, chest radiograph 02/24/2022 LOCATION: H65 FINDINGS: The trachea appears normal. The mediastinum and cardiac silhouette are within normal limits for size. Ill-defined airspace opacities noted throughout the right mid and lower lung, obscuring previously noted consolidation. Suspect trace bilateral pleural effusions. Limited evaluation of soft tissues and osseous structures is grossly unremarkable. IMPRESSION: Ill- defined airspace opacities noted throughout the right mid and lower lung, which is worsened from prior and obscures previously noted consolidation. Suspect trace bilateral pleural effusions. at 0723 Reported and signed by: Khadar Epperson M.D. CC: Porfirio Cool MD; Merlyn Le MD Technologist: FAYE TITUS Trnscrd Date/Time/By: 02/28/2022 (9729) : By: [email or web address] PAGE 1 Signed Report FAX: Porfirio Arreaga MD [phone] [place]: EM[facility]: ADM FAX: Merlyn Reynaga MD [phone] Name: CINDY SINGH [facility] : 1960 Age/S: 61/M [address] [facility] Unit #: [id number] Loc: [address] Phys: [place] [address] Acct: [id number] Dis Date: Status: ADM IN PHONE #: [phone] Exam Date: 02/28/2022651 FAX #: [phone] Reason: Followup, right upper lobe cavitary mass EXAMS: CPT CODE: [id number] XR CHEST 1 V 03432 (Continued) Orig Print D/T: S: 02/28/2022 (15) PAGE 2 Signed ReportCOMPREHENSIVE METABOLIC [id number] 06:44:00 Test Item Value Reference Range Interpretation Comments SODIUM (test code = NA) 134 mmol/l 134.0-147.0 N POTASSIUM (test code = K) 4.1 mmol/L 3.6-5.2 N CHLORIDE (test code = CL) 101 mmol/l 98.0-107.0 N CARBON DIOXIDE (test code = CO2) 24.1 mmol/l 21.0-33.0 N ANION GAP (test code = GAP) 13.0 0-20 N GLUCOSE (test code = GLU) 96 mg/dl 70.0-110.0 N BLOOD UREA NITROGEN (test code = 11 mg/dl 7.0-18.0 N BUN) CREATININE (test code = CREAT) 0.89 mg/dL 0.60-1.30 N GFR NON BLACK (test code = 92 mL/min 80-90 H GFRNONBLACK) GFR BLACK (test code = GFRBLACK) 112 mL/min 97-109 H TOTAL PROTEIN (test code = PROT) 6.8 GM/DL 6.0-8.1 N ALBUMIN (test code = ALB) 2.4 gm/dL 3.2-4.7 L CALCIUM (test code = CA) 8.8 mg/dl 8.0-10.5 N BILIRUBIN TOTAL (test code = 0.3 mg/dl 0.0-1.0 N BILT) SGOT/AST (test code = AST) 21 Units/L 15-37 N SGPT/ALT (test code = ALT) 32 Units/L 12.0-78.0 N ALKALINE PHOSPHATASE TOTAL (test 59 Units/L 50.0-136.0 N code = ALKP) [id number] 06:44:00 Test Item Value Reference Range Interpretation Comments MAGNESIUM (test code = MAG) 2.1 mg/dl 1.8-2.4 N URINALYSIS [id number] 02:15:00 Test Item Value Reference Range Interpretation Comments UA COLOR (test code = YELLOW COLU) UA APPEARANCE (test code CLEAR = APPU) UA GLUCOSE DIPSTICK (test NORMAL mg/dl NORMAL code = DGLUU) UA BILIRUBIN DIPSTICK NEGATIVE mg/dL NEGATIVE (test code = BILU) UA KETONE DIPSTICK (test NEGATIVE mg/dl NEGATIVE code = KETU) UA SPECIFIC GRAVITY (test 1.015 1.000-1.030 code = SGU) UA BLOOD DIPSTICK (test 10 Vega/micL Vega/micL NEGATIVE A code = TAMAR) UA PH DIPSTICK (test code 6.0 5.0-9.0 = LÁZARO) UA PROTEIN DIPSTICK (test NEGATIVE mg/dl NEGATIVE code = PROU) UA UROBILINIOGEN DIPSTICK NORMAL mg/dl NORMAL (test code = URO) UA NITRITE DIPSTICK (test NEGATIVE NEGATIVE code = MALIK) UA LEUKOCYTE ESTERASE NEGATIVE Eloy/micL NEGATIVE DIPSTICK (test code = LEUU) UA WBC (test code = WBCU) 0-3 WBC/HPF NONE UA RBC (test code = RBCU) 0-2 RBC/HPF 0-3 UA EPITHELIAL CELLS (test 0-3 EPI/HPF 0-3 code = EPIU) UA BACTERIA (test code = FEW NONE BACU) DRUGS OF ABUSE SCREEN [id number] 02:15:00 Test Item Value Reference Interpretation Comments Range URN COCAINE (test NEGATIVE NEGATIVE Cocaine cu t-off code = COCAURN) concentratio n: 300 ng/mL URN CANNABINOIDS NEGATIVE NEGATIVE Cannabinoid s cut-off (test code = concentration: 50 ng/mL CANNABURN) URN AMPHETAMINE NEGATIVE NEGATIVE Amphetamine cut-off (test code = concentration: 1000 ng/mL AMPHETURN) URN BARBITURATE NEGATIVE NEGATIVE Barbiturate cut-off (test code = concentration: 200 ng/mL BARBITURN) URN BENZODIAZEPINE NEGATIVE NEGATIVE Benzodiaz epine cut-off (test code = concentration: 200 ng/mL BENZOURN) URN OPIATES (test POSITIVE NEGATIVE A UNCONFIRME D INITIAL code = OPIATURN) SCREENING O NLY; SUGGEST ADDITIONALCONFI RMATORY TESTING.Opiates cut-off concentration: 2000 ng/mL URN PHENCYCLIDINE NEGATIVE NEGATIVE Phencyclid ine(PCP) cut-off (PCP) (test code = concentra tion: 25 ng/ml PHENCURN) URN METHADONE (test NEGATIVE NEGATIVE Methadon e cut-off code = METHAURN) concentrati on: 300 ng/mL - CT CHEST W/[id number] 01:16:00 [facility] : 1960 Sex: M FAX: Anjum Lafleur [phone] [place]: St: REG Name: CINDY SINGH [facility] : 1960 Age/S: 61/M [address] [facility] Unit: [id number] Loc: [address] Phys: [place] [id number] Acct: [id number] Dis Date: Status: REG ER PHONE #: [phone] Exam Date: 02/25/2022106 FAX#: [phone] Reason: DYSPNEA AND PRODUCTIVE COUGH EXAMS: CPT CODE: [id number] CT CHEST W/CONTRAST [id number] AFTER HOURS SERVICE ON: 02/25/2022 1:[address] Scan of the Chest With Contrast Location Code M12 History: DYSPNEA AND PRODUCTIVE COUGH Technique: Scans were performed on a helical scanner post IV contrast only. One or more of the following dose reduction techniques were used: Automated exposure control, adjustment of the mA and/or kV according to patient size, and/or utilization of iterative reconstruction technique. Findings: There is a large 5.6 x 4.2 cm thick-walled cavitary lesion in the basilar segment of the right upper lobe corresponding to a chest x-ray finding. There is a small right pl eural effusion. Mild atelectatic changes are present in the lower lobes. There are small bilateral calcified granulomas. There is no pulmonary edema. There is no pneumothorax. There is no mediastinal lymphadenopathy. No evidence of aortic aneurysm. There is no cardiomegaly or pericardial effusion. Impression: Large 5.6 x 4.2 cm thick-walled cavitary lesion. Differential diagnosis includes fungal infection (including TB) or malignancy. TB should be considered the primary diagnosis until proven otherwise. Small right pleural effusion., at 0116 Reported and signed by: Miranda Andrade M.D. PAGE 1 Signed Report (CONTINUED) FAX: Anjum Lafleur [phone] [place]: St: REG Name: CINDY SINGH [facility] : 1960 Age/S: 61/M [address] [facility] Unit: [id number] Loc: [address] Phys: [place] [id number] Acct: [id number] Dis Date: Status: REG ER PHONE #: [phone] Exam Date: 02/25/2022106 FAX #: [phone] Reason: DYSPNEA AND PRODUCTIVE COUGH EXAMS: CPT CODE: [id number] CT CHEST W/CONTRAST [id number] (Continued) CC: Anjum Lafleur MD Technologist: NEWTON CORNEJO Trnscrd Dt/Tm: 02/25/2022 (011) [id number] Orig Print D/T: S: 02/25/2022 (0119 PAGE 2 Signed ReportPROTHROMBIN [id number] 23:51:00 Test Item Value Reference Range Interpretation Comments PROTHROMBIN TIME 13.8 SECONDS 9.9-12.8 H PATIENT (test code = PTP) INTERNATIONAL NORMAL 1.2 0.89-1.14 H THE INR IS TO BE USED RATIO (test code = ONLY FOR MONITORING INR) ORAL ANTICOAGULANTTH ERAPY. THE FOLLOWING A RE SUGGESTED RANGE S FROM [facility] LEGE OF CHEST PHYSICIANS:MIYA CATION INR VALUEPROPHY LAXIS OF VENOUS THROM BOSIS (ORTHOPEDIC MELINA GEORGE) 2.0 - 3.0PROPHY LAXIS OF VENOUS THROM BOSIS (OTHER THAN HIG H-RISK SURGERY) 2.0 - 3.0TREATMENT OF DEEP VEIN THROMBOSIS OR PULMONARY EMBOL ISM 2.0 - 3.0PREVEN TION OF SYSTEMIC EMBOLI SM TISSUE HEART VA LVES 2.0 - 3.0 ACUTE MYOCARDIAL INFA RCTION (TO PREVENT SYS TEMIC EMBOLISM) 2.0 - 3.0 ACUTE MYOCARDIA L INFARCTION (TO PREVENT RECURRENT INFAR CT) 2.5 - 3.0 VALVULAR HEART DISEASE 2.0 - 3 .0 ATRIAL FIBRILAT ION 2.0 - 3.0BILEAF LET MECHANICAL VALV E IN AORTIC POSITION 2.0 - 3.0MECHANICAL PROSTHETIC VALV ES (HIGH RISK) 2.5 - 3.5PRESENCE OF LUPUS ANTICOAGULANT O R ANTIPHOSPHOLIPI D ANTIBODIES 2.5 - 3.5 - XR CHEST 1 [id number] 23:37:00 [facility] 1960 Sex: M FAX: Anjum Lafleur [phone] [place]: NAV St: REG Name: CINDY SINGH [facility] : 1960 Age/S: 61/M [address] [facility] [employer] Unit #: [id number] Loc: [address] Phys: [place] [id number] Acct: [id number] Dis Date: Status: REG ER PHONE #: [phone] Exam Date: 02/24/2022 2331FAX #: [phone] Reason: SOB EXAMS: CPT CODE: [id number] XR CHEST 1 V 69762 - XR CHEST 1 V, 02/24/2022 10:34 PM Reason For Examination: SOB Comparison: None Location: R16 Findings LUNGS: There is a dense opacity seen within the right mid to lower lung zone measuring at least 6 cm possibly reflecting alarge consolidation or mass, recommend further evaluation with CT of the chest PLEURA: No pleural effusions CARDIOMEDIASTINAL SILHOUETTE Unremarkable IMPRESSION: There is a dense opacity seen within the right mid to lower lung zone measuring at least 6 cm possibly reflecting a large consolidation or mass, recommend further evaluation with CT of the chest at 2337 Reported and signed by: Pam Ward M.D. CC: Tim Lafleur MD Technologist: GENO PARRA PAGE 1 Signed Report FAX: Anjum Lafleur [phone] [place]: St: REG ----- Name: CINDY SINGH [facility] : 1960 Age/S: 61/M [address] [facility] #: [id number] Loc: [address] Phys: [place] [id number] Acct: [id number] Dis Date: Status: REG ER PHONE #: [phone] Exam Date: 02/24/20222330 FAX #: [phone] Reason: SOB EXAMS: CPT CODE: [id number] XR CHEST 1 V 51012 (Continued) Trnscrd Date/Time/By: 02/24/2022 (2336) : By: [email or web address] PAGE 2 Signed ReportBASIC METABOLIC PANEL 2022-02-24 23:34:00 Test Item Value Reference Range Interpretation Comments SODIUM (test code = NA) 135 mmol/l 134.0-147.0 N POTASSIUM (test code = K) 4.0 mmol/L 3.6-5.2 N CHLORIDE (test code = CL) 99 mmol/l 98.0-107.0 N CARBON DIOXIDE (test code = CO2) 27.0 mmol/l 21.0-33.0 N ANION GAP (test code = GAP) 13.0 0-20 N GLUCOSE (test code = GLU) 153 mg/dl 70.0-110.0 H BLOOD UREA NITROGEN (test code = 11 mg/dl 7.0-18.0 N BUN) CREATININE (test code = CREAT) 1.01 mg/dL 0.60-1.30 N GFR NON BLACK (test code = 80 mL/min 80-90 N GFRNONBLACK) GFR BLACK (test code = GFRBLACK) 97 mL/min 97-109 N CALCIUM (test code = CA) 8.9 mg/dl 8.0-10.5 N HEPATIC FUNCTION PANEL [id number] 23:34:00 Test Item Value Reference Range Interpretation Comments TOTAL PROTEIN (test code = PROT) 7.8 gm/dL 6.4-8.2 N ALBUMIN (test code = ALB) 3.1 gm/dl 3.2-4.7 L BILIRUBIN TOTAL (test code = BILT) 0.3 mg/dl 0.0-1.0 N BILIRUBIN DIRECT (test code = 0.1 mg/dl 0.0-0.3 N BILD) SGOT/AST (test code = AST) 14 Units/L 15-37 L SGPT/ALT (test code = ALT) 19 Units/L 12.0-78.0 N ALKALINE PHOSPHATASE TOTAL (test 79 Units/L 50.0-136.0 N code = ALKP) [id number] 23:34:00 Test Item Value Reference Range Interpretation Comments LIPASE (test code = LIP) 54 Units/L 65.0-230.0 L [id number] 23:34:00 Test Item Value Reference Range Interpretation Comments MAGNESIUM (test code = MAG) 1.9 mg/dl 1.8-2.4 N B-TYPE NATRIURETIC [id number] 23:34:00 Test Item Value Reference Range Interpretation Comments B-TYPE NATRIURETIC PEPTIDE (test 44 PG/ML 5-100 N code = BNP) [id number] 23:34:00 Test Item Value Reference Range Interpretation Comments TROPONIN-I (test <0.02 NG/ML 0.00-0.06 N REFERENCE R NATALIE code = TROPI) TROPONIN I HEA LTHY INDIVIDUALS: <0 .06 ng/mL R/O ISCHE PERRY: 0.07 - 0.60 ng/ mL CUT-OFF RANGE F OR AMI: 0.60 - 1.5 ng/m L CBC W/AUTO [id number] 23:24:00 Test Item Value Reference Range Interpretation Comments WHITE BLOOD CELL (test code = 14.3 K/mm3 4.5-11.0 H WBC) RED BLOOD CELL (test code = 4.00 M/mm3 4.40-5.90 L RBC) HEMOGLOBIN (test code = HGB) 11.6 gm/dL 13.0-17.0 L HEMATOCRIT (test code = HCT) 35.9 % 36.0-48.0 L MEAN CELL VOLUME (test code = 89.8 UM3 80.0-94.0 N MCV) MEAN CELL HGB (test code = MCH) 29.0 UUG 25.5-32.5 N MEAN CELL HGB CONCETRATION 32.3 gm/dL 29.0-35.5 N (test code = MCHC) RED CELL DISTRIBUTION WIDTH 13.1 % 11.5-15.0 N (test code = RDW) RED CELL DISTRIBUTION WIDTH SD 43.3 fL 34.8-50.2 N (test code = RDW-SD) PLATELET COUNT (test code = 379 K/mm3 150-400 N PLT) MEAN PLATELET VOLUME (test code 9.9 fl 7.4-10.4 N = MPV) NEUTROPHIL % (test code = NT%) 74.6 % 49.0-76.0 N IMMATURE GRANULOCYTE % (test 0.3 % 0.0-0.4 N code = IG%) LYMPHOCYTE % (test code = LY%) 11.5 % 23.0-38.0 L MONOCYTE % (test code = MO%) 12.4 % 1.0-10.0 H EOSINOPHIL % (test code = EO%) 0.9 % 1.0-5.0 L BASOPHIL % (test code = BA%) 0.3 % 0.0-1.0 N NUCLEATED RBC % (test code = 0.0 % 0.0-0.1 N NRBC%) NEUTROPHIL # (test code = NT#) 10.6 K/mm3 2.4-6.3 H IMMATURE GRANULOCYTE # (test 0.04 x10 3/uL 0.00-0.07 N code = IG#) LYMPHOCYTE # (test code = LY#) 1.6 K/mm3 1.2-4.0 N MONOCYTE # (test code = MO#) 1.8 K/mm3 0.0-0.6 H EOSINOPHIL # (test code = EO#) 0.1 K/MM3 0.0-0.7 N BASOPHIL # (test code = BA#) 0.0 K/mm3 0.0-0.2 N NUCLEATED RBC # (test code = 0.00 X10 3uL 0.00-0.01 N NRBC#) Coronavirus 2018 [facility] [id number] 23:05:00 Test Item Value Reference Range Interpretation Comments Coronavirus 2019 Negative NEGATIVE Negative re sults should be nCoV Bedside (test treated a s presumptive and code = ifinconsistent with [id number]) clinical signs and symptoms, or ne cessaryfor patient managem ent, should be tested with an alternativemole cular assay. Negative result s do not preclude [id number]-JeM-[id number] tion and should not be u sed as the sole basis forp atient management deci sions. Negative result s should beconsidered in the context of a patient's recent exposures,histo ry, presence of clinical sig ns and symptoms consis tentwith COVID-19. Coronavirus 2019 nCoV [id number] 07:02:00 Test Item Value Reference Range Interpretation Comments Coronavirus 2019 Negative NEGATIVE Negative re sults should be nCoV Bedside (test treated a s presumptive and code = ifinconsistent with [id number]) clinical signs and symptoms, or ne cessaryfor patient managem ent, should be tested with an alternativemole cular assay. Negative result s do not preclude GWST-[id number]-[id number] tion and should not be u sed as the sole basis forp atient management deci sions. Negative result s should beconsidered in the context of a patient's recent exposures,histo ry, presence of clinical sig ns and symptoms consis tentwith COVID-19. DRUGS OF ABUSE SCREEN [id number] 06:02:00 Test Item Value Reference Interpretation Comments Range URN COCAINE (test POSITIVE NEGATIVE A UNCONFIRME D INITIAL code = COCAURN) SCREENING ON LY; SUGGEST ADDITIONALCONFI RMATORY TESTING.Cocaine cut-off concentration: 300 ng/mL URN CANNABINOIDS POSITIVE NEGATIVE A UNCONFIRMED INITIAL (test code = SCREENING ONLY; SUGGEST CANNABURN) ADDITIONALCONFI RMATORY TESTING.Cannabi noids cut-off concent ration: 50 ng/mL URN AMPHETAMINE POSITIVE NEGATIVE A UNCONFIRMED INITIAL (test code = SCREENING ONLY; SUGGEST AMPHETURN) ADDITIONALCONFI RMATORY TESTING.Ampheta mine cut-off concentration: 1000 ng/mL URN BARBITURATE NEGATIVE NEGATIVE Barbiturate cut-off (test code = concentration: 200 ng/mL BARBITURN) URN BENZODIAZEPINE NEGATIVE NEGATIVE Benzodiaz epine cut-off (test code = concentration: 200 ng/mL BENZOURN) URN OPIATES (test NEGATIVE NEGATIVE Opiates cu t-off code = OPIATURN) concentrati on: 2000 ng/mL URN PHENCYCLIDINE NEGATIVE NEGATIVE Phencyclid ine(PCP) cut-off (PCP) (test code = concentra tion: 25 ng/ml PHENCURN) URN METHADONE (test NEGATIVE NEGATIVE Methadon e cut-off code = METHAURN) concentrati on: 300 ng/mL URINALYSIS [id number] 05:52:00 Test Item Value Reference Range Interpretation Comments UA COLOR (test code = YELLOW COLU) UA APPEARANCE (test code CLEAR = APPU) UA GLUCOSE DIPSTICK (test NORMAL mg/dl NORMAL code = DGLUU) UA BILIRUBIN DIPSTICK NEGATIVE mg/dL NEGATIVE (test code = BILU) UA KETONE DIPSTICK (test 5 mg/dl mg/dl NEGATIVE A code = KETU) UA SPECIFIC GRAVITY (test 1.020 1.000-1.030 code = SGU) UA BLOOD DIPSTICK (test NEGATIVE Vega/micL NEGATIVE code = TAMAR) UA PH DIPSTICK (test code 6.5 5.0-9.0 = LÁZARO) UA PROTEIN DIPSTICK (test NEGATIVE mg/dl NEGATIVE code = PROU) UA UROBILINIOGEN DIPSTICK 4.0 mg/dl mg/dl NORMAL A (test code = URO) UA NITRITE DIPSTICK (test NEGATIVE NEGATIVE code = MALIK) UA LEUKOCYTE ESTERASE 25 Eloy/micL Eloy/micL NEGATIVE A DIPSTICK (test code = LEUU) UA WBC (test code = WBCU) 4-9 WBC/HPF NONE A UA RBC (test code = RBCU) 1-3 RBC/HPF 0-3 UA EPITHELIAL CELLS (test 1-3 EPI/HPF 0-3 code = EPIU) UA BACTERIA (test code = FEW NONE BACU) UA MUCUS (test code = 4+ MUCU) BASIC METABOLIC [id number] 04:49:00 Test Item Value Reference Range Interpretation Comments SODIUM (test code = NA) 137 mmol/l 134.0-147.0 N POTASSIUM (test code = K) 3.2 mmol/L 3.6-5.2 L CHLORIDE (test code = CL) 104 mmol/l 98.0-107.0 N CARBON DIOXIDE (test code = CO2) 29.5 mmol/l 21.0-33.0 N ANION GAP (test code = GAP) 6.7 0-20 N GLUCOSE (test code = GLU) 89 mg/dl 70.0-110.0 N BLOOD UREA NITROGEN (test code = 11 mg/dl 7.0-18.0 N BUN) CREATININE (test code = CREAT) 0.94 mg/dL 0.60-1.30 N GFR NON BLACK (test code = 87 mL/min 80-90 N GFRNONBLACK) GFR BLACK (test code = GFRBLACK) 105 mL/min 97-109 N CALCIUM (test code = CA) 9.3 mg/dl 8.0-10.5 N HEPATIC FUNCTION PANEL [id number] 04:49:00 Test Item Value Reference Range Interpretation Comments TOTAL PROTEIN (test code = PROT) 7.6 GM/DL 6.0-8.1 N ALBUMIN (test code = ALB) 4.2 gm/dL 3.2-4.7 N BILIRUBIN TOTAL (test code = BILT) 0.6 mg/dl 0.0-1.0 N BILIRUBIN DIRECT (test code = 0.1 mg/dl 0.0-0.3 N BILD) SGOT/AST (test code = AST) 20 Units/L 15-37 N SGPT/ALT (test code = ALT) 24 Units/L 12.0-78.0 N ALKALINE PHOSPHATASE TOTAL (test 80 Units/L 50.0-136.0 N code = ALKP) CREATINE KINASE (CK)2021-12-11 04:49:00 Test Item Value Reference Range Interpretation Comments CREATINE KINASE (CK) (test code = 202 Units/L 35-232 N CK) [id number] 04:49:00 Test Item Value Reference Range Interpretation Comments TROPONIN-I (test <0.02 NG/ML 0.00-0.06 N REFERENCE R NATALIE code = TROPI) TROPONIN I HEA LTHY INDIVIDUALS: <0 .06 ng/mL R/O ISCHE PERRY: 0.07 - 0.60 ng/ mL CUT-OFF RANGE F OR AMI: 0.60 - 1.5 ng/m L [id number] 04:49:00 Test Item Value Reference Range Interpretation Comments ACETAMINOPHEN (test <2.0 mcg/ml 10.0-30.0 L Result i s in code = ACET) Microgram per milliliter. [id number] 04:49:00 Test Item Value Reference Range Interpretation Comments SALICYLATE (test code = SHAWN) 1.2 mg/dl 2.8-20.0 L [id number] 04:49:00 Test Item Value Reference Range Interpretation Comments ALCOHOL (test code 0.00 gm/dL 0.00-0.00 N ETHYL ALC OHOL VALUES - = ALC) INTERPRETATION: 0.050 GM/DL - NOT INT OXICATED 0.100 GM/DL - INTOXICATED 0.3 50-0.450 GM/DL - SEVEREL Y INTOXICATED 0.5 50 GM/DL- FATAL INTOXICAT ION PROTHROMBIN [id number] 04:38:00 Test Item Value Reference Range Interpretation Comments PROTHROMBIN TIME 11.5 SECONDS 9.9-12.8 N PATIENT (test code = PTP) INTERNATIONAL NORMAL 1.0 0.89-1.14 N THE INR IS TO BE USED RATIO (test code = ONLY FOR MONITORING INR) ORAL ANTICOAGULANTTH ERAPY. THE FOLLOWING A RE SUGGESTED RANGE [facility] LEGE OF CHEST PHYSICIANS:MIYA CATION INR VALUEPROPHY LAXIS OF VENOUS THROM BOSIS (ORTHOPEDIC MELINA GEORGE) 2.0 - 3.0PROPHY LAXIS OF VENOUS THROM BOSIS (OTHER THAN HIG H-RISK SURGERY) 2.0 - 3.0TREATMENT OF DEEP VEIN THROMBOSIS OR PULMONARY EMBOL ISM 2.0 - 3.0PREVEN TION OF SYSTEMIC EMBOLI SM TISSUE HEART VA LVES 2.0 - 3.0 ACUTE MYOCARDIAL INFA RCTION (TO PREVENT SYS TEMIC EMBOLISM) 2.0 - 3.0 ACUTE MYOCARDIA L INFARCTION (TO PREVENT RECURRENT INFAR CT) 2.5 - 3.0 VALVULAR HEART DISEASE 2.0 - 3 .0 ATRIAL FIBRILAT ION 2.0 - 3.0BILEAF LET MECHANICAL VALV E IN AORTIC POSITION 2.0 - 3.0MECHANICAL PROSTHETIC VALV ES (HIGH RISK) 2.5 - 3.5PRESENCE OF LUPUS ANTICOAGULANT O R ANTIPHOSPHOLIPI D ANTIBODIES 2.5 - 3.5 CBC W/AUTO [id number] 04:29:00 Test Item Value Reference Range Interpretation Comments WHITE BLOOD CELL (test code = 6.6 K/mm3 4.5-11.0 N WBC) RED BLOOD CELL (test code = 4.75 M/mm3 4.40-5.90 N RBC) HEMOGLOBIN (test code = HGB) 14.0 gm/dL 13.0-17.0 N HEMATOCRIT (test code = HCT) 42.4 % 36.0-48.0 N MEAN CELL VOLUME (test code = 89.3 UM3 80.0-94.0 N MCV) MEAN CELL HGB (test code = MCH) 29.5 UUG 25.5-32.5 N MEAN CELL HGB CONCETRATION 33.0 gm/dL 29.0-35.5 N (test code = MCHC) RED CELL DISTRIBUTION WIDTH 13.2 % 11.5-15.0 N (test code = RDW) RED CELL DISTRIBUTION WIDTH SD 43.6 fL 34.8-50.2 N (test code = RDW-SD) PLATELET COUNT (test code = 237 K/mm3 150-400 N PLT) MEAN PLATELET VOLUME (test code 10.3 fl 7.4-10.4 N = MPV) NEUTROPHIL % (test code = NT%) 51.8 % 49.0-76.0 N IMMATURE GRANULOCYTE % (test 0.2 % 0.0-0.4 N code = IG%) LYMPHOCYTE % (test code = LY%) 33.9 % 23.0-38.0 N MONOCYTE % (test code = MO%) 10.0 % 1.0-10.0 N EOSINOPHIL % (test code = EO%) 3.5 % 1.0-5.0 N BASOPHIL % (test code = BA%) 0.6 % 0.0-1.0 N NUCLEATED RBC % (test code = 0.0 % 0.0-0.1 N NRBC%) NEUTROPHIL # (test code = NT#) 3.4 K/mm3 2.4-6.3 N IMMATURE GRANULOCYTE # (test 0.01 x10 3/uL 0.00-0.07 N code = IG#) LYMPHOCYTE # (test code = LY#) 2.2 K/mm3 1.2-4.0 N MONOCYTE # (test code = MO#) 0.7 K/mm3 0.0-0.6 H EOSINOPHIL # (test code = EO#) 0.2 K/MM3 0.0-0.7 N BASOPHIL # (test code = BA#) 0.0 K/mm3 0.0-0.2 N NUCLEATED RBC # (test code = 0.00 X10 3uL 0.00-0.01 N NRBC#) Coronavirus 2018 nCoV [id number] 12:28:00 Test Item Value Reference Range Interpretation Comments Coronavirus 2019 Negative NEGATIVE Negative re sults should be nCoV Bedside (test treated a s presumptive and code = ifinconsistent with [id number]) clinical signs and symptoms, or ne cessaryfor patient managem ent, should be tested with an alternativemole cular assay. Negative result s do not preclude JJOQ-IkQ-3aqqtp tion and should not be u sed as the sole basis forp atient management deci sions. Negative result s should beconsidered in the context of a patient's recent exposures,histo ry, presence of clinical sig ns and symptoms consis tentwith COVID-19. Specimen comments: Clean CatchURINALYSIS [id number] 12:13:00 Test Item Value Reference Range Interpretation Comments UA COLOR (test code = COLU) YELLOW UA APPEARANCE (test code = CLEAR APPU) UA GLUCOSE DIPSTICK (test NORMAL mg/dl NORMAL code = DGLUU) UA BILIRUBIN DIPSTICK (test NEGATIVE mg/dL NEGATIVE code = BILU) UA KETONE DIPSTICK (test 50 mg/dl mg/dl NEGATIVE A code = KETU) UA SPECIFIC GRAVITY (test 1.015 1.000-1.030 code = SGU) UA BLOOD DIPSTICK (test NEGATIVE Vega/micL NEGATIVE code = TAMAR) UA PH DIPSTICK (test code = 6.0 5.0-9.0 LÁZARO) UA PROTEIN DIPSTICK (test NEGATIVE mg/dl NEGATIVE code = PROU) UA UROBILINIOGEN DIPSTICK NORMAL mg/dl NORMAL (test code = URO) UA NITRITE DIPSTICK (test NEGATIVE NEGATIVE code = MALIK) UA LEUKOCYTE ESTERASE NEGATIVE Eloy/micL NEGATIVE DIPSTICK (test code = LEUU) UA WBC (test code = WBCU) 0-3 WBC/HPF NONE UA RBC (test code = RBCU) NONE SEEN RBC/HPF 0-3 UA EPITHELIAL CELLS (test 1-3 EPI/HPF 0-3 code = EPIU) UA BACTERIA (test code = NONE SEEN NONE BACU) Specimen comments: Clean CatchDRUGS OF ABUSE SCREEN [id number] 12:11:00 Test Item Value Reference Interpretation Comments Range URN COCAINE (test POSITIVE NEGATIVE A UNCONFIRME D INITIAL code = COCAURN) SCREENING ON LY; SUGGEST ADDITIONALCONFI RMATORY TESTING.Cocaine cut-off concentration: 300 ng/mL URN CANNABINOIDS POSITIVE NEGATIVE A UNCONFIRMED INITIAL (test code = SCREENING ONLY; SUGGEST CANNABURN) ADDITIONALCONFI RMATORY TESTING.Cannabi noids cut-off concent ration: 50 ng/mL URN AMPHETAMINE NEGATIVE NEGATIVE Amphetamine cut-off (test code = concentration: 1000 ng/mL AMPHETURN) URN BARBITURATE NEGATIVE NEGATIVE Barbiturate cut-off (test code = concentration: 200 ng/mL BARBITURN) URN BENZODIAZEPINE NEGATIVE NEGATIVE Benzodiaz epine cut-off (test code = concentration: 200 ng/mL BENZOURN) URN OPIATES (test NEGATIVE NEGATIVE Opiates cu t-off code = OPIATURN) concentrati on: 200 ng/mL URN PHENCYCLIDINE NEGATIVE NEGATIVE Phencyclid ine(PCP) cut-off (PCP) (test code = concentra tion: 25 ng/ml PHENCURN) URN METHADONE (test NEGATIVE NEGATIVE code = METHAURN) Specimen comments: Clean CatchBASIC METABOLIC [id number] 12:11:00 Test Item Value Reference Range Interpretation Comments SODIUM (test code = NA) 135 mmol/l 134.0-147.0 N POTASSIUM (test code = K) 3.7 mmol/L 3.6-5.2 N CHLORIDE (test code = CL) 100 mmol/l 98.0-107.0 N CARBON DIOXIDE (test code = CO2) 23.1 mmol/l 21.0-33.0 N ANION GAP (test code = GAP) 15.6 0-20 N GLUCOSE (test code = GLU) 97 mg/dl 70.0-110.0 N BLOOD UREA NITROGEN (test code = 14 mg/dl 7.0-18.0 N BUN) CREATININE (test code = CREAT) 0.98 mg/dL 0.60-1.30 N GFR NON BLACK (test code = 83 mL/min 90-95 L GFRNONBLACK) GFR BLACK (test code = GFRBLACK) 101 mL/min 109-115 L CALCIUM (test code = CA) 8.6 mg/dl 8.0-10.5 N Specimen comments: Clean CatchHEPATIC FUNCTION PANEL [id number] 12:11:00 Test Item Value Reference Range Interpretation Comments TOTAL PROTEIN (test code = PROT) 6.5 gm/dL 6.4-8.2 N ALBUMIN (test code = ALB) 3.6 gm/dl 3.2-4.7 N BILIRUBIN TOTAL (test code = BILT) 0.8 mg/dl 0.0-1.0 N BILIRUBIN DIRECT (test code = 0.2 mg/dl 0.0-0.3 N BILD) SGOT/AST (test code = AST) 30 Units/L 15.0-37.0 N SGPT/ALT (test code = ALT) 29 Units/L 12.0-78.0 N ALKALINE PHOSPHATASE TOTAL (test 75 Units/L 50.0-136.0 N code = ALKP) Specimen comments: Clean [id number] 12:11:00 Test Item Value Reference Range Interpretation Comments ACETAMINOPHEN (test <2.0 mcg/ml 10.0-30.0 L Result i s in code = ACET) Microgram per milliliter. Specimen comments: Clean [id number] 12:11:00 Test Item Value Reference Range Interpretation Comments SALICYLATE (test code = SHAWN) 1.6 mg/dl 2.8-20.0 L Specimen comments: Clean [id number] 12:11:00 Test Item Value Reference Range Interpretation Comments ALCOHOL (test code 0.00 gm/dL 0.00-0.00 N ETHYL ALC OHOL VALUES - = ALC) INTERPRETATION: 0.050 GM/DL - NOT INT OXICATED 0.100 GM/DL - INTOXICATED 0.3 50-0.450 GM/DL - SEVEREL Y INTOXICATED 0.5 50 GM/DL- FATAL INTOXICAT ION Specimen comments: Clean CatchCBC W/AUTO [id number] 12:00:00 Test Item Value Reference Range Interpretation Comments WHITE BLOOD CELL (test code = 6.1 K/mm3 4.5-11.0 N WBC) RED BLOOD CELL (test code = 4.48 M/mm3 4.40-5.90 N RBC) HEMOGLOBIN (test code = HGB) 13.6 gm/dL 13.0-17.0 N HEMATOCRIT (test code = HCT) 41.0 % 36.0-48.0 N MEAN CELL VOLUME (test code = 91.5 UM3 80.0-94.0 N MCV) MEAN CELL HGB (test code = MCH) 30.4 UUG 25.5-32.5 N MEAN CELL HGB CONCETRATION 33.2 gm/dL 29.0-35.5 N (test code = MCHC) RED CELL DISTRIBUTION WIDTH 13.3 % 11.5-15.0 N (test code = RDW) RED CELL DISTRIBUTION WIDTH SD 45.0 fL 34.8-50.2 N (test code = RDW-SD) PLATELET COUNT (test code = 240 K/mm3 150-400 N PLT) MEAN PLATELET VOLUME (test code 10.0 fl 7.4-10.4 N = MPV) NEUTROPHIL % (test code = NT%) 55.6 % 49.0-76.0 N IMMATURE GRANULOCYTE % (test 0.2 % 0.0-0.4 N code = IG%) LYMPHOCYTE % (test code = LY%) 30.1 % 23.0-38.0 N MONOCYTE % (test code = MO%) 10.8 % 1.0-10.0 H EOSINOPHIL % (test code = EO%) 2.6 % 1.0-5.0 N BASOPHIL % (test code = BA%) 0.7 % 0.0-1.0 N NUCLEATED RBC % (test code = 0.0 % 0.0-0.1 N NRBC%) NEUTROPHIL # (test code = NT#) 3.4 K/mm3 2.4-6.3 N IMMATURE GRANULOCYTE # (test 0.01 x10 3/uL 0.00-0.07 N code = IG#) LYMPHOCYTE # (test code = LY#) 1.8 K/mm3 1.2-4.0 N MONOCYTE # (test code = MO#) 0.7 K/mm3 0.0-0.6 H EOSINOPHIL # (test code = EO#) 0.2 K/MM3 0.0-0.7 N BASOPHIL # (test code = BA#) 0.0 K/mm3 0.0-0.2 N NUCLEATED RBC # (test code = 0.00 X10 3uL 0.00-0.01 N NRBC#) Specimen comments: Clean CatchURINALYSIS [id number] 11:57:00 Test Item Value Reference Range Interpretation Comments UA COLOR (test code = COLU) YELLOW UA APPEARANCE (test code = CLEAR APPU) UA GLUCOSE DIPSTICK (test NORMAL mg/dl NORMAL code = DGLUU) UA BILIRUBIN DIPSTICK (test NEGATIVE mg/dL NEGATIVE code = BILU) UA KETONE DIPSTICK (test 50 mg/dl mg/dl NEGATIVE A code = KETU) UA SPECIFIC GRAVITY (test 1.015 1.000-1.030 code = SGU) UA BLOOD DIPSTICK (test NEGATIVE Vega/micL NEGATIVE code = TAMAR) UA PH DIPSTICK (test code = 6.0 5.0-9.0 LÁZARO) UA PROTEIN DIPSTICK (test NEGATIVE mg/dl NEGATIVE code = PROU) UA UROBILINIOGEN DIPSTICK NORMAL mg/dl NORMAL (test code = URO) UA NITRITE DIPSTICK (test NEGATIVE NEGATIVE code = MALIK) UA LEUKOCYTE ESTERASE NEGATIVE Eloy/micL NEGATIVE DIPSTICK (test code = LEUU) UA WBC (test code = WBCU) WBC/HPF NONE UA RBC (test code = RBCU) RBC/HPF 0-3 UA EPITHELIAL CELLS (test EPI/HPF 0-3 code = EPIU) UA BACTERIA (test code = NONE BACU) Specimen comments: Clean Catch Notes Date/Time Note Provider Source 2022-04-22 08:31:00-00:00 [facility] ([facility] Hospitalist Discharge Summary REPORT#:[id number] REPORT STATUS: Signed DATE:04/22/22 TIME: 830 PATIENT: CINDY SINGH UNIT #: [id number] ROOM/BED: [place] [address] : 60 AGE: 61 SEX: M ATTEND: May Le MD ADM AUTHOR: Merlyn Le MD * ALL edits or amendments must be made on the [employer]/computer document * General Information Date of admission: Observation Start Date: Date of admission: 02/25/22 Discharge date: 03/11/22 Hospital course: Cavitary lesion of lung --likely lung abscess large 5.6 x 4.2 cm thick-walled cavitary lesion IGRA TB negative ID following IV antibiotics : Vancomycin/Zosyn Status post bronc, culture with alpha strep and micrococcus, AFB negative, fungal smears negative Fungal Gram stain negative Sputum culture negative ------- patient clinically improving, decreasing cavity size with antibiotics hence no lung biopsy planned ----Plan repeat CT of chest on Thursday with possi ble home on Thursday with p.o. antibiotics Diabetes mellitus type 2 new diagnosis Hemoglobin A1c 6.5 Start Metformin and sliding scale glucose worsened with steroids Angioedema Resolved hypertension Off lisinopril due to angioedema Depression On Zoloft SCDs as he is ambulatory Discussed with ID regarding home health and home IV infusion if he requires a prolonged iv antibx course 03/[address] scan on Thursday with [facility]i otics 03/09 Necrotic cavity to radiopacity in right upper lo be slightly diminished since prior exam on CT chest today On IV antibiotics Will discuss with ID and pulmonary if it is possible to go on p.o. antibiotics as patient is homeless 03/11 ok with ID and pulm to dc on po antibiotics Consultants: infectious disease Med Rec Med Rec Discharge meds: Continue taking these medications: SERTRALINE (ZOLOFT) 50 MG TAB 50 MILLIGRAM ORAL DAILY. Start taking the following new medications: AMOXICILLIN/CLAV K (AUGMENTIN 875/125 MG) 875 MG -125 MG TAB 875 MILLIGRAM ORAL EVERY 12 HOURS. Qty = 42 No Refills Objective Head/Eyes: atraumatic, clear cornea, EOMI, zeynep l conjunctiva/sclera, normal eyelids/periorb., normocephalic, PERRL ENT: normal dentition, normal ear left, normal e ar right, normal nose, normal pharynx, normal sinus Neck: full range of motion, non-tender, normal thyroid, supple/no meningismus, no bruit/NL carotids, no JVD, no masses or swell ing Cardiovascular: normal heart sounds, regular rat e rhythm Respiratory: decreased breath sounds right side Abdomen: non-tender, normal bowel sounds, soft, no distention Extremities: no cyanosis, no edema Musculoskeletal: normal inspection, painless ran ge of motion Neuro/DRIP BOX TENDER: alert, oriented X 3, normal speech Skin: dry, intact Lymphatics: axilla normal, inguinal normal, neck normal, no lymphadenopathy Psychiatry: normal mood Discharge Instructions PCP PCP follow-up: PCP: No Primary or Family Physician Additional Discharge Routines: PCP Follow-Up (1w k) Diet: Cardiac Activity: As Tolerated Prescriptions: on chart Discharge management: greater than 30 mins Electronically Signed by Merlyn Le MD on at 0832 [facility] #:[id number] END OF REPORT 2022-03-20 10:51:00-00:00 [id number] [facility] Main and [place] [id number] [place] [id number] PATIENT NAME: CINDY SINGH ADMIT DATE: ACCOUNT NO: [id number] DISCHARGE DATE: 2 ROOM NO: [facility] REPORT TYPE: 360 - QUERY RESPONSE DOCUMENT DATE OF : 60 AGE: 61 SEX: M ADMITTING PHYSICIAN:Merlyn Le MD ATTENDING PHYSICIAN:Merlyn Le MD Provider Query QUERY TEXT: Specificity General 360MD Query related questions should be directed to:[facility] [place] Coding Query Helpline Please provide any known specificity for [protei n calorie malnutrition] documented in the [Infectious Dis . Progress Note 03/06/2022]. [ mild protein calorie malnutrition moderate pro tein calorie malnutrition, sever protein calorie mal nutrition , other ] The patient's Clinical Indicators include: protein calorie malnutrition-Infectious Dis. Pro alexandra Note 03/06/2022 albumin 3.1 on admission-Infectious Dis. Progres s Note 03/06/2022 increased p.o. nutrition-Infectious Dis. Progres s Note 03/06/2022 BMI Calculated: 22.8-Pulmonology Progress Note 0 03/08/2022 (1) Ondansetron 4 mg/2 mL Inj-mar Options provided: -- Respond - Create new note now -- Dismiss - Not applicable / Not valid -- Dismiss - Clinically unable to determine / Un known -- Assign to another provider QUERY RESPONSE: mild protein daniella malnutrition Query created by: THOMAS MCKEON on 03/14/2022 1:10 AM Electronically Signed by Merlyn Le MD on 0 03/20/22 at 1051 PATIENT NAME: CINDY SINGH [id number] 2594-04-18 13:36:00-00:00 [facility] ([facility]) Infectious Dis. Progress Note REPORT#:[id number] REPORT STATUS: Signed DATE:03/10/22 TIME: 1336 PATIENT: CINDY SINGH UNIT #: [id number] ROOM/BED: [facility]1 : 60 AGE: 61 SEX: M ATTEND: May Le MD ADM AUTHOR: Sondra Stephens MD * ALL edits or amendments must be made on the [employer]/computer document * Subjective Chief complaint: shortness of breath, rib cage pain patient seen and examined chart reviewed and ac [place] events noted. Objective General Antibiotic start date: Antibiotic: Start Date: Antibiotic: Start Date: Antibiotic: Start Date: Physical Exam Head/Eyes: clear cornea, EOMI Neck: full range of motion, non-tender, normal thyroid, supple/no meningismus, no bruit/NL carotids, no JVD, no masses or swell ing, no lymphadenopathy Cardiovascular: normal heart sounds, regular rat e rhythm Respiratory: decreased breath sounds Abdomen: non-tender, normal bowel sounds Extremities: moves all, normal capillary refill Musculoskeletal: full range of motion Neuro/DRIP BOX TENDER: alert, CNII-XII intact, normal speech Lymphatics: axilla normal, inguinal normal, neck normal, no lymphadenopathy Psychiatry: unable to evaluate Diagnosis, Assessment Plan Free Text A P: Cavitary lesions - seen on CT - pulmonary following, status post bronchoscopy - rule out TB, await culture results - patient started on Unasyn will discontinue an d broaden antibiotics to vancomycin and zosyn Leukocytosis - likely secondary to above - continue antibiotics and monitor for improvem ent unintentional weight loss - possibly secondary lung disease, workup in pr ogress abdominal pain /right upper quadrant pain - CTA reviewed - may benefit from CTAP - pulmonary following accelerated hypertension - not currently receiving any BP medications - defer to Internal Medicine protein calorie malnutrition -albumin 3.1 on admission -continue to encouraged increased p.o. nutritio n and monitor for improvement Rib cage pain/pain under right axilla -Patient may benefit from pain managemen t, continue current medication regimen per IM clinically better cx reviewed will follow clinically better antibx for 2 more weeks will follow antibx ct chest to be repeated on thursday Consultants: infectious disease Electronically Signed by Sondra Stephens MD on 02/22 07/14 at 0030 RPT #:[id number] END OF REPORT 2022-03-10 13:11:00-00:00 [facility] ([facility]) Hospitalist Progress Note REPORT#:[id number] REPORT STATUS: Signed DATE:03/10/22 TIME: 1311 PATIENT: CINDY SINGH UNIT #: [id number] ROOM/BED: [place] [address] : 60 AGE: 61 SEX: M ATTEND: May Le MD ADM AUTHOR: Merlyn Le MD * ALL edits or amendments must be made on the [employer]/computer document * Subjective Chief complaint: Patient seen and examined Much improved Lung mass slightly improved with antibiotics Review of Systems Constitutional: Denies: fever. Respiratory: Denies: SOB, wheezing. Cardiovascular: Denies: chest pain, edema. Objective General VS/I O: Vital Signs: Date Time Temp Pulse Resp B/P B/P Pulse O2 O2 F low FiO2 Mean Ox Delivery Rate 03/10 1029 68 117/73 87.5 98 03/10 0659 36.7 63 15 131/76 94.0 96 Room air 03/09 2327 37.0 56 18 117/68 84.3 98 Room air 03/09 1920 37.3 69 18 120/74 89.1 98 Room air 03/09 1839 99 Room air 03/09 1434 36.9 66 17 105/66 78.8 99 Room air PATIENT WEIGHT: Weight (lb): Weight (oz): Weight (kg): 70.000 Physical Exam General appearance: alert, awake, oriented Head/Eyes: atraumatic, clear cornea, EOMI, zeynep l conjunctiva/sclera, normal eyelids/periorb., normocephalic, PERRL ENT: normal dentition, normal ear left, normal e ar right, normal nose, normal pharynx, normal sinus Neck: full range of motion, non-tender, normal thyroid, supple/no meningismus, no bruit/NL carotids, no JVD, no masses or swell ing Cardiovascular: normal heart sounds, regular rat e rhythm Respiratory: decreased breath sounds right side Abdomen: non-tender, normal bowel sounds, soft, no distention Extremities: no cyanosis, no edema Musculoskeletal: normal inspection, painless ran ge of motion Neuro/DRIP BOX TENDER: alert, oriented X 3, normal speech Skin: dry, intact Lymphatics: axilla normal, inguinal normal, neck normal, no lymphadenopathy Psychiatry: normal mood Diagnosis, Assessment Plan Consultants: infectious disease Free Text DxA P Notes Free text DxA P notes: Cavitary lesion of lung --likely lung abscess large 5.6 x 4.2 cm thick-walled cavitary lesion IGRA TB negative ID following IV antibiotics : Vancomycin/Zosyn Status post bronc, culture with alpha strep and micrococcus, AFB negative, fungal smears negative Fungal Gram stain negative Sputum culture negative ------- patient clinically improving, decreasing cavity size with antibiotics hence no lung biopsy planned ----Plan repeat CT of chest on Thursday with possi ble home on Thursday with p.o. antibiotics Diabetes mellitus type 2 new diagnosis Hemoglobin A1c 6.5 Start Metformin and sliding scale glucose worsened with steroids Angioedema Resolved hypertension Off lisinopril due to angioedema Depression On Zoloft SCDs as he is ambulatory Discussed with ID regarding home health and home IV infusion if he requires a prolonged iv antibx course 03/[address] scan on Thursday with penitentiary antibi otics 03/09 Necrotic cavity to radiopacity in right upper lo be slightly diminished since prior exam on CT chest today On IV antibiotics Will discuss with ID and pulmonary if it is possible to go on p.o. antibiotics as patient is homeless Electronically Signed by Merlyn Le MD on at 1313 RPT #:[id number] END OF REPORT 2022-03-10 10:18:00-00:00 [facility] ([facility] Pulmonology Progress Note REPORT#:[id number] REPORT STATUS: Signed DATE:03/10/22 TIME: 1018 PATIENT: CINDY SINGH UNIT #: [id number] ROOM/BED: [place] [address] : 60 AGE: 61 SEX: M ATTEND: May Le MD ADM AUTHOR: Shirley Brown PA * ALL edits or amendments must be made on the [employer]/computer document * Shirley Brown 03/10/22 1018: Subjective Chief complaint: Chest pain is much better. Comments: Pt seen examined, events noted. No new issues or concerns per pt. Currently on room air, SPO2 99%. Continues on antibiotics per ID. Shortness of breath improving, able to take noe er breaths. Pleuritic chest pain greatly improved. Serial chest CTs show progressive improvement in lung mass, almost complete resolution of ipsilateral pleural effusion. ROS neg f/c, n/v, cp Objective General VS/I O: Last Documented: Result Date Time Pulse Ox 96 03/10 659 B/P 131/76 03/10 659 B/P Mean 94.0 03/10 659 O2 Delivery Room air 03/10 659 Temp 98.1 03/10 659 Pulse 63 03/10 659 Resp 15 03/10 659 FiO2 21 03/05 0703 O2 Flow Rate 0 03/05 0703 PATIENT WEIGHT: Weight (lb): Weight (oz): Weight (kg): 70.000 Physical Exam Head/eyes: atraumatic, normocephalic, PERRL, EOM I, normal conjunctiva/sclera ENT: ENT: moist mucosal membranes, caries, poor dent ition Neck: no JVD, no lymphadenopathy Cardiovascular: normal S1/S2, regular rate rhyth m, no murmur, no rub Respiratory/chest: aerating well, clear to auscu ltation, no distress Abdomen: soft, non-tender, normal bowel sounds, no distention, no mass/ organomegaly Genitourinary: no urinary catheter Extremities: moves all, normal capillary refill, no clubbing, no cyanosis, no edema Musculoskeletal: muscle atrophy Neuro/DRIP BOX TENDER: alert, CNII-XII intact, no motor defi cits Lymphatics: neck normal, no lymphadenopathy Psychiatry: normal affect, n ormal judgment/insight, normal mood, not homicidal, not suicidal Diagnosis, Assessment Plan Free Text A P: 1. Cavitary Lung Lesion/Lung abscess -with resolution of leukocytosis, following janet tment. -Airborne Isolation has been discontinued, as he has had 3 good specimens of sputum, bronch wash and lavage fluid, all negati ve for AFB by smear. -Bronchial washing culture grew only alpha strep and micrococcus, probably normal cassidy. Fungal AFB cultures are pending. T B seems unlikely with negative sputum, bronchial lavage and bronchial washing AFB smears. I believe this is more likely a lung abscess than malignan cy -Empiric antibiotics are being managed by ID. -* Serial repeat CT shows re duction in size indicated response to treatment and likely Dx is lung abscess 2. Pleuritic Chest Pain -Symptomatic pain control -A bit more improvement with treatment so far, a ccording to patient history. -Pleuritic character. 3. Small right, trace left pleural effusions -Monitor -Will consider diagnostic thoracentesis if condi tion worsens -Almost completely resolved on most recent CT 4. Unintentional weight loss -Likely due to lung process above -Workup in progress 5. Hypertension -Have gently reduced BP meds Consultants: infectious disease Maykel Dominguez 03/10/22 1241: Attestations Physician Attestation Agree w/findings plan: Seen and examined. I agree with the findings and plan as documented by Hector Brown PA-C. Electronically Signed by Shirley Brown on 0 03/10/22 at 1025 Electronically Signed by Maykel Dominguez MD on 0 03/10/22 at 1245 RPT #:[id number] END OF REPORT 2022-03-09 18:53:00-00:00 [facility] ([facility]) Hospitalist Progress Note REPORT#:[id number] REPORT STATUS: Signed DATE:03/09/22 TIME: 1852 PATIENT: CINDY SINGH UNIT #: [id number] ROOM/BED: [place] [address] : 60 AGE: 61 SEX: M ATTEND: May Le MD ADM AUTHOR: Alexis Waterman MD * ALL edits or amendments must be made on the [employer]/computer document * Subjective Chief complaint: Patient seen and examined Much improved Lung mass improvement with antibiotics Objective General VS/I O: Vital Signs: Date Time Temp Pulse Resp B/P B/P Pulse O2 O2 F low FiO2 Mean Ox Delivery Rate 03/09 1839 99 Room air 03/09 1434 36.9 66 17 105/66 78.8 99 Room air 03/09 1037 36.9 67 18 120/68 85.6 97 Room air 03/09 0705 36.6 55 17 99/65 75.9 96 Room air 03/09 0632 94 Room air 03/09 0406 36.4 59 14 112/73 86.0 98 03/08 2346 37.0 68 16 108/57 74.2 97 Room air 24 hour I O ending at 0700: 03/08 1900 03/09 0700 Intake Total 100.00 Output Total Balance 100.00 Intake, IV 100.00 PATIENT WEIGHT: Weight (lb): Weight (oz): Weight (kg): 70.000 Medications: Active Meds + DC'd Last 24 Hrs Diphenhydramine HCl (BENADRYL) 50 MG Q4H PRN PRN IV Sodium Chloride (SODIUM CHLORIDE 0.9%) 50 ML Hydrocodone Bitart/Acetaminophen (NORCO 5/325 TA BLET) 1 TAB Q4H PRN PRN PO Albuterol/Ipratropium (IPRATR-ALBUTEROL 0.5-3 MG /3 ML) 3 ML RTQ4H NEB Senna/Docusate Sodium (SENOKOT S) 2 TAB BID PO Piperacillin Sod/Tazobactam Sod (ZOSYN 3.375 GM VIAL) 3.375 GM Q8H IV Sodium Chloride (SODIUM CHLORIDE 0.9% 100 ML) 1 00 ML Guaifenesin (MUCINEX ER) 600 MG Q12HR PO Lactobacillus Acidophilus (BACID) 2 CAP BID PO Multivitamins/Minerals Therapeutic (THERAPEUTIC VITAMIN W MINERALS) 1 TAB DAILY PO Sertraline HCl (ZOLOFT) 50 MG DAILY PO Physical Exam General appearance: alert, awake, oriented Head/Eyes: atraumatic, clear cornea, EOMI, zeynep l conjunctiva/sclera, normal eyelids/periorb., normocephalic, PERRL ENT: normal dentition, normal ear left, normal e ar right, normal nose, normal pharynx, normal sinus Neck: full range of motion, non-tender, normal thyroid, supple/no meningismus, no bruit/NL carotids, no JVD, no masses or swell ing Cardiovascular: normal heart sounds, regular rat e rhythm Respiratory: decreased breath sounds right side Abdomen: non-tender, normal bowel sounds, soft, no distention Extremities: no cyanosis, no edema Musculoskeletal: normal inspection, painless ran ge of motion Neuro/DRIP BOX TENDER: alert, oriented X 3, normal speech Skin: dry, intact Lymphatics: axilla normal, inguinal normal, neck normal, no lymphadenopathy Psychiatry: normal mood Results Findings/Data: Cavitary lesion of lung --likely lung abscess large 5.6 x 4.2 cm thick-walled cavitary lesion IGRA TB negative ID following IV antibiotics : Vancomycin/Zosyn Status post bronc, culture with alpha strep and micrococcus, AFB negative, fungal smears negative Fungal Gram stain negative Sputum culture negative ------- patient clinically improving, decreasing cavity size with antibiotics hence no lung biopsy planned ----Plan repeat CT of chest on Thursday with possi ble home on Thursday with p.o. antibiotics Diabetes mellitus type 2 new diagnosis Hemoglobin A1c 6.5 Start Metformin and sliding scale glucose worsened with steroids Angioedema Resolved hypertension Off lisinopril due to angioedema Depression On Zoloft SCDs as he is ambulatory Discussed with ID regarding home health and home IV infusion if he requires a prolonged iv antibx course 03/[address] scan on Thursday with penitentiary antibi otics 03/09 Right upper lobe cavitary lesion - IV antibiotic therapy - lesion has improved - CT scan tomorrow - possible penitentiary IV or PO antibiotics Diagnosis, Assessment Plan Consultants: infectious disease Free Text DxA P Notes Free text DxA P notes: Cavitary lesion of lung --likely lung abscess large 5.6 x 4.2 cm thick-walled cavitary lesion IGRA TB negative ID following IV antibiotics : Vancomycin/Zosyn Status post bronc, culture with alpha strep and micrococcus, AFB negative, fungal smears negative Fungal Gram stain negative Sputum culture negative ------- patient clinically improving, decreasing cavity size with antibiotics hence no lung biopsy planned ----Plan repeat CT of chest on Thursday with possi ble home on Thursday with p.o. antibiotics Diabetes mellitus type 2 new diagnosis Hemoglobin A1c 6.5 Start Metformin and sliding scale glucose worsened with steroids Angioedema Resolved hypertension Off lisinopril due to angioedema Depression On Zoloft SCDs as he is ambulatory Discussed with ID regarding home health and home IV infusion if he requires a prolonged iv antibx course 03/[address] scan on Thursday with terminal worker antibi otics at 1901 RPT #:[id number] END OF REPORT 2022-03-09 16:43:00-00:00 [facility] ([facility] Pulmonology Progress Note REPORT#:[id number] REPORT STATUS: Signed DATE:03/09/22 TIME: 1642 PATIENT: CINDY SINGH UNIT #: [id number] ROOM/BED: [place] [address] : 60 AGE: 61 SEX: M ATTEND: May Le MD ADM AUTHOR: Maykel Dominguez MD * ALL edits or amendments must be made on the [employer]/computer document * Subjective Chief complaint: Chest pain is much better. Patient reports: Yes: chest pain (with deep inspiration), resting comfortably, tolerating diet. No: congestion, cough, shortness of breath. Comments: ROS negative for f/c, n/v. Objective General VS/I O: Last Documented: Result Date Time Pulse Ox 99 03/09 1434 B/P 105/66 03/09 1434 B/P Mean 78.8 03/09 1434 O2 Delivery Room air 03/09 1434 Temp 98.4 03/09 1434 Pulse 66 03/09 1434 Resp 17 03/09 1434 FiO2 21 03/05 0703 O2 Flow Rate 0 03/05 0703 24 hour I O ending at 0700: 03/08 1900 03/09 0700 Intake Total 100.00 Output Total Balance 100.00 Intake, IV 100.00 PATIENT WEIGHT: Weight (lb): Weight (oz): Weight (kg): 70.000 Medications: Active Meds + DC'd Last 24 Hrs Diphenhydramine HCl (BENADRYL) 50 MG Q4H PRN PRN IV Sodium Chloride (SODIUM CHLORIDE 0.9%) 50 ML Hydrocodone Bitart/Acetaminophen (NORCO 5/325 TA BLET) 1 TAB Q4H PRN PRN PO Albuterol/Ipratropium (IPRATR-ALBUTEROL 0.5-3 MG /3 ML) 3 ML RTQ4H NEB Senna/Docusate Sodium (SENOKOT S) 2 TAB BID PO Piperacillin Sod/Tazobactam Sod (ZOSYN 3.375 GM VIAL) 3.375 GM Q8H IV Sodium Chloride (SODIUM CHLORIDE 0.9% 100 ML) 1 00 ML Guaifenesin (MUCINEX ER) 600 MG Q12HR PO Lactobacillus Acidophilus (BACID) 2 CAP BID PO Multivitamins/Minerals Therapeutic (THERAPEUTIC VITAMIN W MINERALS) 1 TAB DAILY PO Sertraline HCl (ZOLOFT) 50 MG DAILY PO Nutrition assessment: The data set between the solid lines has been im ported from the dietitian's assessment. Any exceptions have been noted under Provider comments. BMI Calculated: 22.8 Nutrition related diagnosis: Nutrition diagnosis details: Nutrition problem: Nutrition etiology: Nutrition signs and symptoms: Nutrition prescription: Dietitian name: Assessment completed: Provider comments on imported dietitian assessme nt: Physical Exam General appearance: alert, awake, no acute distr ess, pleasant, conversational Head/eyes: atraumatic, normocephalic, PERRL, EOM I, normal conjunctiva/sclera ENT: ENT: moist mucosal membranes, caries, poor dent ition Neck: no JVD, no lymphadenopathy Cardiovascular: normal S1/S2, regular rate rhyth m, no murmur, no rub Respiratory/chest: aerating well, clear to auscu ltation, no distress Abdomen: soft, non-tender, normal bowel sounds, no distention, no mass/ organomegaly Genitourinary: no urinary catheter Extremities: moves all, normal capillary refill, no clubbing, no cyanosis, no edema Musculoskeletal: muscle atrophy Neuro/DRIP BOX TENDER: alert, CNII-XII intact, no motor defi cits Lymphatics: neck normal, no lymphadenopathy Psychiatry: normal affect, n ormal judgment/insight, normal mood, not homicidal, not suicidal Diagnosis, Assessment Plan Free Text A P: 1. Cavitary Lung Lesion/Lung abscess -with resolution of leukocytosis, following janet tment. -Airborne Isolation has been discontinued, as he has had 3 good specimens of sputum, bronch wash and lavage fluid, all negati ve for AFB by smear. -Bronchial washing culture grew only alpha strep and micrococcus, probably normal cassidy. Fungal AFB cultures are pending. T B seems unlikely with negative sputum, bronchial lavage and bronchial washing AFB smears. I believe this is more likely a lung abscess than malignan cy -Empiric antibiotics are being managed by ID. -Repeat CT shows reduction i n size indicated response to treatment and likely Dx is lung abscess -recheck chest CT in a.m. 2. Pleuritic Chest Pain -Symptomatic pain control -A bit more improvement with treatment so far, a ccording to patient history. -Pleuritic character. 3. Small right, trace left pleural effusions -Monitor -Will consider diagnostic thoracentesis if condi tion worsens 4. Unintentional weight loss -Likely due to lung process above -Workup in progress 5. Hypertension -Have gently reduced BP meds Electronically Signed by Maykel Dominguez MD on 0 03/09/22 at 1644 RPT #:[id number] END OF REPORT 2022-03-09 12:48:00-00:00 [facility] ([facility]) Infectious Dis. Progress Note REPORT#:[id number] REPORT STATUS: Signed DATE:03/09/22 TIME: 1248 PATIENT: CINDY SINGH UNIT #: [id number] ROOM/BED: [place] [address] : 60 AGE: 61 SEX: M ATTEND: May Le MD ADM AUTHOR: Sondra Stephens MD * ALL edits or amendments must be made on the [employer]/computer document * Subjective Chief complaint: shortness of breath, rib cage pain patient seen and examined chart reviewed and acu te events noted. Patient reports: No: complaints. Nursing reports: No: complaints. Unable to obtain: medical condition, patient con dition Objective General VS/I O: Last Documented: Result Date Time Pulse Ox 97 03/09 1037 B/P 120/68 03/09 1037 B/P Mean 85.6 03/09 1037 O2 Delivery Room air 03/09 1037 Temp 36.9 03/09 1037 Pulse 67 03/09 1037 Resp 18 03/09 1037 FiO2 21 03/05 0703 O2 Flow Rate 0 03/05 0703 Vital Signs Date Temp Pulse Resp B/P B/P Mean Pulse Ox FiO2 03/08-03/09 36.4-37.3 55-68 14-19 99-131/57-77 74.2-95.4 94-98 24 hour I O ending at 0700: 03/09 0700 03/08 1900 Intake Total 100.00 Output Total Balance 100.00 Intake, IV 100.00 PATIENT WEIGHT: Weight (lb): Weight (oz): Weight (kg): 70.000 Medications: Active Meds + DC'd Last 24 Hrs Diphenhydramine HCl (BENADRYL) 50 MG Q4H PRN PRN IV Sodium Chloride (SODIUM CHLORIDE 0.9%) 50 ML Hydrocodone Bitart/Acetaminophen (NORCO 5/325 TA BLET) 1 TAB Q4H PRN PRN PO Albuterol/Ipratropium (IPRATR-ALBUTEROL 0.5-3 MG /3 ML) 3 ML RTQ4H NEB Senna/Docusate Sodium (SENOKOT S) 2 TAB BID PO Piperacillin Sod/Tazobactam Sod (ZOSYN 3.375 GM VIAL) 3.375 GM Q8H IV Sodium Chloride (SODIUM CHLORIDE 0.9% 100 ML) 1 00 ML Guaifenesin (MUCINEX ER) 600 MG Q12HR PO Lactobacillus Acidophilus (BACID) 2 CAP BID PO Multivitamins/Minerals Therapeutic (THERAPEUTIC VITAMIN W MINERALS) 1 TAB DAILY PO Sertraline HCl (ZOLOFT) 50 MG DAILY PO Antibiotic start date: Antibiotic: Start Date: Antibiotic: Start Date: Antibiotic: Start Date: Physical Exam General appearance: awake Head/Eyes: clear cornea, EOMI Neck: full range of motion, non-tender, normal thyroid, supple/no meningismus, no bruit/NL carotids, no JVD, no masses or swell ing, no lymphadenopathy Cardiovascular: normal heart sounds, regular rat e rhythm Respiratory: decreased breath sounds Abdomen: non-tender, normal bowel sounds Extremities: moves all, normal capillary refill Musculoskeletal: full range of motion Neuro/DRIP BOX TENDER: alert, CNII-XII intact, normal speech Lymphatics: axilla normal, inguinal normal, neck normal, no lymphadenopathy Psychiatry: unable to evaluate Diagnosis, Assessment Plan Free Text A P: Cavitary lesions - seen on CT - pulmonary following, status post bronchoscopy - rule out TB, await culture results - patient started on Unasyn will discontinue an d broaden antibiotics to vancomycin and zosyn Leukocytosis - likely secondary to above - continue antibiotics and monitor for improvem ent unintentional weight loss - possibly secondary lung disease, workup in pr ogress abdominal pain /right upper quadrant pain - CTA reviewed - may benefit from CTAP - pulmonary following accelerated hypertension - not currently receiving any BP medications - defer to Internal Medicine protein calorie malnutrition -albumin 3.1 on admission -continue to encouraged increased p.o. nutritio n and monitor for improvement Rib cage pain/pain under right axilla -Patient may benefit from pain managemen t, continue current medication regimen per IM clinically better cx reviewed will follow clinically better antibx for 2 more weeks will follow antibx ct chest to be repeated on thursday Consultants: infectious disease Electronically Signed by Sondra Stephens MD on 02/21 06/13 at 1340 RPT #:[id number] END OF REPORT 2022-03-08 20:22:00-00:00 [facility] ([facility]) Pulmonology Progress Note REPORT#:[id number] REPORT STATUS: Signed DATE:03/08/22 TIME: 2021 PATIENT: CINDY SINGH UNIT #: [id number] ROOM/BED: [place] [id number] : 60 AGE: 61 SEX: M ATTEND: May Le MD ADM AUTHOR: Maykel Dominguez MD * ALL edits or amendments must be made on the [employer]/computer document * Subjective Chief complaint: Chest pain is much better. Patient reports: Yes: cough, feeling better, resting comfortably. No: congestion, shortness of breath. Comments: Seen and examined. Discussed earlier today with Dr. Waterman. Pt reports chest pain has improved remarkably an d that he is feeling much improved. No new complaints. ROS negative for f/c, n/v. Objective General VS/I O: Last Documented: Result Date Time Pulse Ox 96 03/08 1853 B/P 131/77 03/08 1853 B/P Mean 95.4 03/08 1853 O2 Delivery Room air 03/08 1853 Temp 97.9 03/08 1853 Pulse 59 04/16 1853 Resp 16 03/08 1853 FiO2 21 03/05 0703 O2 Flow Rate 0 03/05 0703 24 hour I O ending at 0700: 03/07 1900 03/08 0700 Intake Total Output Total 625 Balance -625 Output, Urine 625 PATIENT WEIGHT: Weight (lb): Weight (oz): Weight (kg): 70.000 Medications: Active Meds + DC'd Last 24 Hrs Diphenhydramine HCl (BENADRYL) 50 MG Q4H PRN AZ N IV Sodium Chloride (SODIUM CHLORIDE 0.9%) 50 ML Hydrocodone Bitart/Acetaminophen (NORCO 5/325 TA BLET) 1 TAB Q4H PRN PRN PO Albuterol/Ipratropium (IPRATR-ALBUTEROL 0.5-3 MG /3 ML) 3 ML RTQ4H NEB Senna/Docusate Sodium (SENOKOT S) 2 TAB BID PO Piperacillin Sod/Tazobactam Sod (ZOSYN 3.375 GM VIAL) 3.375 GM Q8H IV Sodium Chloride (SODIUM CHLORIDE 0.9% 100 ML) 1 00 ML Guaifenesin (MUCINEX ER) 600 MG Q12HR PO Lactobacillus Acidophilus (BACID) 2 CAP BID PO Multivitamins/Minerals Therapeutic (THERAPEUTIC VITAMIN W MINERALS) 1 TAB DAILY PO Sertraline HCl (ZOLOFT) 50 MG DAILY PO Nutrition assessment: The data set between the solid lines has been im ported from the dietitian's assessment. Any exceptions have been noted under Provider comments. BMI Calculated: 22.8 Nutrition related diagnosis: Nutrition diagnosis details: Nutrition problem: Nutrition etiology: Nutrition signs and symptoms: Nutrition prescription: Dietitian name: Assessment completed: Provider comments on imported dietitian assessme nt: Physical Exam General appearance: alert, awake, no acute distr ess, pleasant, conversational Head/eyes: atraumatic, normocephalic, PERRL, EOM I, normal conjunctiva/sclera ENT: ENT: moist mucosal membranes, caries, poor dent ition Neck: no JVD, no lymphadenopathy Cardiovascular: normal S1/S2, regular rate rhyth m, no murmur, no rub Respiratory/chest: aerating well, clear to auscu ltation, no distress Abdomen: soft, non-tender, normal bowel sounds, no distention, no mass/ organomegaly Genitourinary: no urinary catheter Extremities: moves all, normal capillary refill, no clubbing, no cyanosis, no edema Musculoskeletal: muscle atrophy Neuro/DRIP BOX TENDER: alert, CNII-XII intact, no motor defi cits Lymphatics: neck normal, no lymphadenopathy Psychiatry: normal affect, n ormal judgment/insight, normal mood, not homicidal, not suicidal Results Findings/Data: Laboratory Tests 03/08/22526: [Embedded Image Not Available] Laboratory Tests 03/08 527 Chemistry Sodium (134.0 - 147.0 mmol/l) 134 Potassium (3.6 - 5.2 mmol/L) 4.3 Chloride (98.0 - 107.0 mmol/l) 103 Carbon Dioxide (21.0 - 33.0 mmol/l) 24.0 Anion Gap (0 - 20) 11.3 BUN (7.0 - 18.0 mg/dl) 16 Creatinine (0.60 - 1.30 mg/dL) 1.15 Est GFR ( Amer) (97 - 109 mL/min) 83 L Est GFR (Non-Af Amer) (80 - 90 mL/min) 69 L Glucose (70.0 - 110.0 mg/dl) 85 Calcium (8.0 - 10.5 mg/dl) 8.9 Laboratory Tests 03/08 527 Hematology WBC (4.5 - 11.0 K/mm3) 8.8 RBC (4.40 - 5.90 M/mm3) 4.47 Hgb (13.0 - 17.0 gm/dL) 12.7 L Hct (36.0 - 48.0 %) 39.8 MCV (80.0 - 94.0 UM3) 89.0 MCH (25.5 - 32.5 UUG) 28.4 MCHC (29.0 - 35.5 gm/dL) 31.9 RDW (11.5 - 15.0 %) 13.6 Plt Count (150 - 400 K/mm3) 399 MPV (7.4 - 10.4 fl) 10.3 Neut % (Auto) (49.0 - 76.0 %) 61.3 Lymph % (Auto) (23.0 - 38.0 %) 18.9 L Rice % (Auto) (1.0 - 10.0 %) 12.0 H Eos % (Auto) (1.0 - 5.0 %) 6.6 H Baso % (Auto) (0.0 - 1.0 %) 0.7 Neut # (Auto) (2.4 - 6.3 K/mm3) 5.4 Lymph # (Auto) (1.2 - 4.0 K/mm3) 1.7 Rice # (Auto) (0.0 - 0.6 K/mm3) 1.1 H Eos # (Auto) (0.0 - 0.7 K/MM3) 0.6 Baso # (Auto) (0.0 - 0.2 K/mm3) 0.1 Absolute Nucleated RBC (0.00 - 0.01 X10 3uL) 0. 00 Immature Gran % (0.0 - 0.4 %) 0.5 H Nucleated RBC % (0.0 - 0.1 %) 0.0 Immature Gran # (0.00 - 0.07 x10 3/uL) 0.04 Diagnosis, Assessment Plan Free Text A P: 1. Cavitary Lung Lesion/Lung abscess -with resolution of leukocytosis, following janet tment. -Airborne Isolation has been discontinued, as he has had 3 good specimens of sputum, bronch wash and lavage fluid, all negati ve for AFB by smear. -Bronchial washing culture grew only alpha strep and micrococcus, probably normal cassidy. Fungal AFB cultures are pending. T B seems unlikely with negative sputum, bronchial lavage and bronchial washing AFB smears. I believe this is more likely a lung abscess than malignan cy -Empiric antibiotics are being managed by ID. -Repeat CT shows reduction i n size indicated response to treatment and likely Dx is lung abscess 2. Pleuritic Chest Pain -Symptomatic pain control -A bit more improvement with treatment so far, a ccording to patient history. -Pleuritic character. 3. Small right, trace left pleural effusions -Monitor -Will consider diagnostic thoracentesis if condi tion worsens 4. Unintentional weight loss -Likely due to lung process above -Workup in progress 5. Hypertension -Have gently reduced BP meds Cont antibiotics. Repeat CT Thursday. Electronically Signed by Maykel Dominguez MD on 0 03/08/22 at 2022 RPT #:[id number] END OF REPORT 2022-03-08 14:56:00-00:00 [facility] ([facility]) Infectious Dis. Progress Note REPORT#:[id number] REPORT STATUS: Signed DATE:03/08/22 TIME: 1455 PATIENT: CINDY SINGH UNIT #: [id number] ROOM/BED: [place] [address] : 60 AGE: 61 SEX: M ATTEND: May eL MD ADM AUTHOR: Sondra Stephens MD * ALL edits or amendments must be made on the [employer] document * Subjective Chief complaint: shortness of breath, rib cage pain patient seen and examined chart reviewed and acu te events noted. Patient reports: No: complaints. Nursing reports: No: complaints. Unable to obtain: medical condition, patient con dition Objective General VS/I O: Last Documented: Result Date Time Pulse Ox 98 03/08 1446 B/P 107/70 03/08 1446 B/P Mean 82.1 03/08 1446 O2 Delivery Room air 03/08 1446 Temp 37.3 03/08 1446 Pulse 57 03/08 1446 Resp 19 03/08 1446 FiO2 21 03/05 0703 O2 Flow Rate 0 03/05 0703 Vital Signs Date Temp Pulse Resp B/P B/P Mean Pulse Ox FiO2 03/07-03/08 36.9-37.3 57-67 18-20 107-133/57-72 80.0-92.5 97-98 24 hour I O ending at 0700: 03/08 0700 03/07 1900 Intake Total Output Total 625 Balance -625 Output, Urine 625 PATIENT WEIGHT: Weight (lb): Weight (oz): Weight (kg): 70.000 Medications: Active Meds + DC'd Last 24 Hrs Diphenhydramine HCl (BENADRYL) 50 MG Q4H PRN PRN IV Sodium Chloride (SODIUM CHLORIDE 0.9%) 50 ML Hydrocodone Bitart/Acetaminophen (NORCO 5/325 TA BLET) 1 TAB Q4H PRN PRN PO Dextrose/Water (DEXTROSE 10%) 125 ML ASDIR PRN I V (DC) Dextrose/Water (DEXTROSE 10%) 250 ML ASDIR PRN I V (DC) Glucagon (GLUCAGON) 1 MG ASDIR PRN IM (DC) Insulin Human Lispro (HumaLOG 100 UNITS/ML) SLID ING SCALE AC HS SUBQ (DC) Albuterol/Ipratropium (IPRATR-ALBUTEROL 0.5-3 MG /3 ML) 3 ML RTQ4H NEB Senna/Docusate Sodium (SENOKOT S) 2 TAB BID PO Piperacillin Sod/Tazobactam Sod (ZOSYN 3.375 GM VIAL) 3.375 GM Q8H IV Sodium Chloride (SODIUM CHLORIDE 0.9% 100 ML) 1 00 ML Guaifenesin (MUCINEX ER) 600 MG Q12HR PO Lactobacillus Acidophilus (BACID) 2 CAP BID PO Multivitamins/Minerals Therapeutic (THERAPEUTIC VITAMIN W MINERALS) 1 TAB DAILY PO Sertraline HCl (ZOLOFT) 50 MG DAILY PO Antibiotic start date: Antibiotic: Start Date: Antibiotic: Start Date: Antibiotic: Start Date: Physical Exam General appearance: awake Head/Eyes: clear cornea, EOMI Neck: full range of motion, non-tender, normal thyroid, supple/no meningismus, no bruit/NL carotids, no JVD, no masses or swell ing, no lymphadenopathy Cardiovascular: normal heart sounds, regular rat e rhythm Respiratory: decreased breath sounds Abdomen: non-tender, normal bowel sounds Extremities: moves all, normal capillary refill Musculoskeletal: full range of motion Neuro/DRIP BOX TENDER: alert, CNII-XII intact, normal speech Lymphatics: axilla normal, inguinal normal, neck normal, no lymphadenopathy Psychiatry: unable to evaluate Results Findings/Data: Laboratory Tests 03/08 0527 Chemistry Sodium (134.0 - 147.0 mmol/l) 134 Potassium (3.6 - 5.2 mmol/L) 4.3 Chloride (98.0 - 107.0 mmol/l) 103 Carbon Dioxide (21.0 - 33.0 mmol/l) 24.0 Anion Gap (0 - 20) 11.3 BUN (7.0 - 18.0 mg/dl) 16 Creatinine (0.60 - 1.30 mg/dL) 1.15 Est GFR ( Amer) (97 - 109 mL/min) 83 L Est GFR (Non-Af Amer) (80 - 90 mL/min) 69 L Glucose (70.0 - 110.0 mg/dl) 85 Calcium (8.0 - 10.5 mg/dl) 8.9 Laboratory Tests 03/08 0527 Hematology WBC (4.5 - 11.0 K/mm3) 8.8 RBC (4.40 - 5.90 M/mm3) 4.47 Hgb (13.0 - 17.0 gm/dL) 12.7 L Hct (36.0 - 48.0 %) 39.8 MCV (80.0 - 94.0 UM3) 89.0 MCH (25.5 - 32.5 UUG) 28.4 MCHC (29.0 - 35.5 gm/dL) 31.9 RDW (11.5 - 15.0 %) 13.6 Plt Count (150 - 400 K/mm3) 399 MPV (7.4 - 10.4 fl) 10.3 Neut % (Auto) (49.0 - 76.0 %) 61.3 Lymph % (Auto) (23.0 - 38.0 %) 18.9 L Rice % (Auto) (1.0 - 10.0 %) 12.0 H Eos % (Auto) (1.0 - 5.0 %) 6.6 H Baso % (Auto) (0.0 - 1.0 %) 0.7 Neut # (Auto) (2.4 - 6.3 K/mm3) 5.4 Lymph # (Auto) (1.2 - 4.0 K/mm3) 1.7 Rice # (Auto) (0.0 - 0.6 K/mm3) 1.1 H Eos # (Auto) (0.0 - 0.7 K/MM3) 0.6 Baso # (Auto) (0.0 - 0.2 K/mm3) 0.1 Absolute Nucleated RBC (0.00 - 0.01 X10 3uL) 0 .00 Immature Gran % (0.0 - 0.4 %) 0.5 H Nucleated RBC % (0.0 - 0.1 %) 0.0 Immature Gran # (0.00 - 0.07 x10 3/uL) 0.04 Diagnosis, Assessment Plan Free Text A P: Cavitary lesions - seen on CT - pulmonary following, status post bronchoscopy - rule out TB, await culture results - patient started on Unasyn will discontinue an d broaden antibiotics to vancomycin and zosyn Leukocytosis - likely secondary to above - continue antibiotics and monitor for improvem ent unintentional weight loss - possibly secondary lung disease, workup in pr ogress abdominal pain /right upper quadrant pain - CTA reviewed - may benefit from CTAP - pulmonary following accelerated hypertension - not currently receiving any BP medications - defer to Internal Medicine protein calorie malnutrition -albumin 3.1 on admission -continue to encouraged increased p.o. nutritio n and monitor for improvement Rib cage pain/pain under right axilla -Patient may benefit from pain managemen t, continue current medication regimen per IM clinically better cx reviewed will follow clinically better antibx for 2 more weeks will follow Consultants: infectious disease Electronically Signed by Sondra Stephens MD on 02/21 05/14 at 1732 RPT #:[id number] END OF REPORT 2022-03-08 14:38:00-00:00 [facility] ([facility]) Hospitalist Progress Note REPORT#:[id number] REPORT STATUS: Signed DATE:03/08/22 TIME: 1438 PATIENT: CINDY SINGH UNIT #: [id number] ROOM/BED: [place] [address] : 60 AGE: 61 SEX: M ATTEND: May Le MD ADM AUTHOR: Alexis Waterman MD * ALL edits or amendments must be made on the [employer]/computer document * Subjective Chief complaint: Patient seen and examined Much improved Lung mass improvement Objective General VS/I O: Vital Signs: Date Time Temp Pulse Resp B/P B/P Pulse O2 O2 F low FiO2 Mean Ox Delivery Rate 03/08 1037 37.1 62 20 114/65 81.6 98 Room air 03/08 0921 97 Room air 03/08 0731 37.2 60 19 112/64 80.3 98 Room air 03/08 0240 36.9 67 18 120/66 84.1 97 Room air 03/07 2241 37.1 65 20 126/57 80.0 98 Room air 03/07 1945 98 Room air 03/07 1846 37.0 63 20 133/72 92.5 98 Room air 03/07 1544 37.1 55 20 120/69 86.2 98 Room air 24 hour I O ending at 0700: 03/07 1900 03/08 0700 Intake Total Output Total 625 Balance -625 Output, Urine 625 PATIENT WEIGHT: Weight (lb): Weight (oz): Weight (kg): 70.000 Medications: Active Meds + DC'd Last 24 Hrs Diphenhydramine HCl (BENADRYL) 50 MG Q4H PRN PRN IV Sodium Chloride (SODIUM CHLORIDE 0.9%) 50 ML Hydrocodone Bitart/Acetaminophen (NORCO 5/325 TA BLET) 1 TAB Q4H PRN PRN PO Dextrose/Water (DEXTROSE 10%) 125 ML ASDIR PRN I V (DC) Dextrose/Water (DEXTROSE 10%) 250 ML ASDIR PRN I V (DC) Glucagon (GLUCAGON) 1 MG ASDIR PRN IM (DC) Insulin Human Lispro (HumaLOG 100 UNITS/ML) SLID ING SCALE AC HS SUBQ (DC) Albuterol/Ipratropium (IPRATR-ALBUTEROL 0.5-3 MG /3 ML) 3 ML RTQ4H NEB Senna/Docusate Sodium (SENOKOT S) 2 TAB BID PO Piperacillin Sod/Tazobactam Sod (ZOSYN 3.375 GM VIAL) 3.375 GM Q8H IV Sodium Chloride (SODIUM CHLORIDE 0.9% 100 ML) 1 00 ML Guaifenesin (MUCINEX ER) 600 MG Q12HR PO Lactobacillus Acidophilus (BACID) 2 CAP BID PO Multivitamins/Minerals Therapeutic (THERAPEUTIC VITAMIN W MINERALS) 1 TAB DAILY PO Sertraline HCl (ZOLOFT) 50 MG DAILY PO Physical Exam General appearance: alert, awake, oriented Head/Eyes: atraumatic, clear cornea, EOMI, zeynep l conjunctiva/sclera, normal eyelids/periorb., normocephalic, PERRL ENT: normal dentition, normal ear left, normal e ar right, normal nose, normal pharynx, normal sinus Neck: full range of motion, non-tender, normal thyroid, supple/no meningismus, no bruit/NL carotids, no JVD, no masses or swell ing Cardiovascular: normal heart sounds, regular rat e rhythm Respiratory: decreased breath sounds right side Abdomen: non-tender, normal bowel sounds, soft, no distention Extremities: no cyanosis, no edema Musculoskeletal: normal inspection, painless ran ge of motion Neuro/DRIP BOX TENDER: alert, oriented X 3, normal speech Skin: dry, intact Lymphatics: axilla normal, inguinal normal, neck normal, no lymphadenopathy Psychiatry: normal mood Results Findings/Data: Laboratory Tests 03/07 03/08 1546 0560 Chemistry Sodium (134.0 - 147.0 mmol/l) 134 Potassium (3.6 - 5.2 mmol/L) 4.3 Chloride (98.0 - 107.0 mmol/l) 103 Carbon Dioxide (21.0 - 33.0 mmol/l) 24.0 Anion Gap (0 - 20) 11.3 BUN (7.0 - 18.0 mg/dl) 16 Creatinine (0.60 - 1.30 mg/dL) 1.15 Est GFR ( Amer) (97 - 109 mL/min) 83 L Est GFR (Non-Af Amer) (80 - 90 mL/min) 69 L Glucose (70.0 - 110.0 mg/dl) 85 POC Glucose (70 - 110 mg/dL) 97 Calcium (8.0 - 10.5 mg/dl) 8.9 Laboratory Tests 03/08 0559 Hematology WBC (4.5 - 11.0 K/mm3) 8.8 RBC (4.40 - 5.90 M/mm3) 4.47 Hgb (13.0 - 17.0 gm/dL) 12.7 L Hct (36.0 - 48.0 %) 39.8 MCV (80.0 - 94.0 UM3) 89.0 MCH (25.5 - 32.5 UUG) 28.4 MCHC (29.0 - 35.5 gm/dL) 31.9 RDW (11.5 - 15.0 %) 13.6 Plt Count (150 - 400 K/mm3) 399 MPV (7.4 - 10.4 fl) 10.3 Neut % (Auto) (49.0 - 76.0 %) 61.3 Lymph % (Auto) (23.0 - 38.0 %) 18.9 L Rice % (Auto) (1.0 - 10.0 %) 12.0 H Eos % (Auto) (1.0 - 5.0 %) 6.6 H Baso % (Auto) (0.0 - 1.0 %) 0.7 Neut # (Auto) (2.4 - 6.3 K/mm3) 5.4 Lymph # (Auto) (1.2 - 4.0 K/mm3) 1.7 Rice # (Auto) (0.0 - 0.6 K/mm3) 1.1 H Eos # (Auto) (0.0 - 0.7 K/MM3) 0.6 Baso # (Auto) (0.0 - 0.2 K/mm3) 0.1 Absolute Nucleated RBC (0.00 - 0.01 X10 3uL) 0. 00 Immature Gran % (0.0 - 0.4 %) 0.5 H Nucleated RBC % (0.0 - 0.1 %) 0.0 Immature Gran # (0.00 - 0.07 x10 3/uL) 0.04 Diagnosis, Assessment Plan Consultants: infectious disease Free Text DxA P Notes Free text DxA P notes: Cavitary lesion of lung --likely lung abscess large 5.6 x 4.2 cm thick-walled cavitary lesion IGRA TB negative ID following IV antibiotics : Vancomycin/Zosyn Status post bronc, culture with alpha strep and micrococcus, AFB negative, fungal smears negative Fungal Gram stain negative Sputum culture negative ------- patient clinically improving, decreasing cavity size with antibiotics hence no lung biopsy planned ----Plan repeat CT of chest on Thursday with possi ble home on Thursday with p.o. antibiotics Diabetes mellitus type 2 new diagnosis Hemoglobin A1c 6.5 Start Metformin and sliding scale glucose worsened with steroids Angioedema Resolved hypertension Off lisinopril due to angioedema Depression On Zoloft SCDs as he is ambulatory Discussed with ID regarding home health and home IV infusion if he requires a prolonged iv antibx course 03/[address] scan on Thursday with terminal worker antibi otics at 1440 [facility] #:[id number] END OF REPORT 2022-03-07 21:40:00-00:00 [facility] ([facility]) Infectious Dis. Progress Note REPORT#:[id number] REPORT STATUS: Signed DATE:03/07/22 TIME: 2139 PATIENT: CINDY SINGH UNIT #: [id number] ROOM/BED: [place] [address] : 60 AGE: 61 SEX: M ATTEND: May Le MD ADM AUTHOR: Sondra Stephens MD * ALL edits or amendments must be made on the [employer]/computer document * Subjective Chief complaint: shortness of breath, rib cage pain patient seen and examined chart reviewed and ac [place] events noted. Objective General Antibiotic start date: Antibiotic: Start Date: Antibiotic: Start Date: Antibiotic: Start Date: Physical Exam Head/Eyes: clear cornea, EOMI Neck: full range of motion, non-tender, normal thyroid, supple/no meningismus, no bruit/NL carotids, no JVD, no masses or swell ing, no lymphadenopathy Cardiovascular: normal heart sounds, regular rat e rhythm Respiratory: decreased breath sounds Abdomen: non-tender, normal bowel sounds Extremities: moves all, normal capillary refill Musculoskeletal: full range of motion Neuro/DRIP BOX TENDER: alert, CNII-XII intact, normal speech Lymphatics: axilla normal, inguinal normal, neck normal, no lymphadenopathy Psychiatry: unable to evaluate Diagnosis, Assessment Plan Free Text A P: Cavitary lesions - seen on CT - pulmonary following, status post bronchoscopy - rule out TB, await culture results - patient started on Unasyn will discontinue an d broaden antibiotics to vancomycin and zosyn Leukocytosis - likely secondary to above - continue antibiotics and monitor for improvem ent unintentional weight loss - possibly secondary lung disease, workup in pr ogress abdominal pain /right upper quadrant pain - CTA reviewed - may benefit from CTAP - pulmonary following accelerated hypertension - not currently receiving any BP medications - defer to Internal Medicine protein calorie malnutrition -albumin 3.1 on admission -continue to encouraged increased p.o. nutritio n and monitor for improvement Rib cage pain/pain under right axilla -Patient may benefit from pain managemen t, continue current medication regimen per IM clinically better cx reviewed will follow clinically better antibx for 2 more weeks will follow Consultants: infectious disease Electronically Signed by Sondra Stephens MD on 02/22 07/14 at 0029 RPT #:[id number] END OF REPORT 2022-03-07 17:46:00-00:00 [facility] ([facility]) Pulmonology Progress Note REPORT#:[id number] REPORT STATUS: Signed DATE:03/07/22 TIME: 1745 PATIENT: CINDY SINGH UNIT #: [id number] ROOM/BED: [place] [address] : 60 AGE: 61 SEX: M ATTEND: May Le MD ADM AUTHOR: Porfirio Cool MD * ALL edits or amendments must be made on the [employer]/computer document * Subjective Chief complaint: Chest pain is much better. Patient reports: Yes: chest pain (with deep inspiration), cough, feeling better, resting comfortably, sputum (little), tolerating diet. No: congestion, coughing blood, shortness of breath, wheezing. Comments: Patient seen and examined. Patient is doing satisfactorily. He is breathing comfortably on room air. Oxyhemoglobin saturation is 98% with the patient at rest on room air. He is eating well and ambulating. Objective General VS/I O: Last Documented: Result Date Time Pulse Ox 98 03/07 1544 B/P 120/69 03/07 1544 B/P Mean 86.2 03/07 1544 O2 Delivery Room air 03/07 1544 Temp 98.8 03/07 1544 Pulse 55 03/07 1544 Resp 20 03/07 1544 FiO2 21 03/05 0703 O2 Flow Rate 0 03/05 0703 24 hour I O ending at 0700: 03/06 1900 03/07 0700 Intake Total 100 Output Total 1200 Balance -1100 Intake, Oral 100 Number Voids 1 Output, Urine 1200 PATIENT WEIGHT: Weight (lb): Weight (oz): Weight (kg): 70.000 Physical Exam General appearance: chronically ill appe aring, alert, awake, no acute distress Head/eyes: atraumatic, normocephalic, PERRL, EOM I, normal conjunctiva/sclera ENT: ENT: moist mucosal membranes, caries, poor dent ition Neck: no JVD, no lymphadenopathy Cardiovascular: normal S1/S2, regular rate rhyth m, no murmur, no rub Respiratory/chest: aerating well, clear to auscu ltation, no distress Abdomen: soft, non-tender, normal bowel sounds, no distention, no mass/ organomegaly Genitourinary: no urinary catheter Extremities: moves all, normal capillary refill, no clubbing, no cyanosis, no edema Musculoskeletal: muscle atrophy Neuro/DRIP BOX TENDER: alert, CNII-XII intact, no motor defi cits Lymphatics: neck normal, no lymphadenopathy Psychiatry: normal affect, n ormal judgment/insight, normal mood, not homicidal, not suicidal Results Findings/Data: Laboratory Tests 03/06 0711 1044 1546 Chemistry POC Glucose (70 - 110 mg/dL) 100 91 80 97 Treatment Prophylaxis Treatment Prophylaxis Oxygen: room air (SpO2 98%) Anti-infectives: piperacillin-tazobactam, vancom ycin Diagnosis, Assessment Plan Free Text A P: 1. Cavitary Lung Lesion/Lung abscess -with resolution of leukocytosis, following janet tment. -Airborne Isolation has been discontinued, as he has had 3 good specimens of sputum, bronch wash and lavage fluid, all negati ve for AFB by smear. -Bronchial washing culture grew only alpha strep and micrococcus, probably normal cassidy. Fungal AFB cultures are pending. T B seems unlikely with negative sputum, bronchial lavage and bronchial washing AFB smears. I believe this is more likely a lung abscess than malignan cy -Empiric antibiotics are being managed by ID. -Repeat CT shows reduction i n size indicated response to treatment and likely Dx is lung abscess 2. Pleuritic Chest Pain -Symptomatic pain control -A bit more improvement with treatment so far, a ccording to patient history. -Pleuritic character. 3. Small right, trace left pleural effusions -Monitor -Will consider diagnostic thoracentesis if condi tion worsens 4. Unintentional weight loss -Likely due to lung process above -Workup in progress 5. Hypertension -Have gently reduced BP meds Cont antibiotics. Repeat CT Thursday. Discontinue fingerstick suga rs and sliding scale insulin, as these are no longer needed. Consultants: infectious disease at 1800 RPT #:[id number] END OF REPORT 2022-03-07 13:03:00-00:00 [facility] ([facility]) Hospitalist Progress Note REPORT#:[id number] REPORT STATUS: Signed DATE:03/07/22 TIME: 1303 PATIENT: CINDY SINGH UNIT #: [id number] ROOM/BED: [place] [address] : 60 AGE: 61 SEX: M ATTEND: May Le MD ADM AUTHOR: Merlyn Le MD * ALL edits or amendments must be made on the [employer]/computer document * Subjective Chief complaint: Patient seen and examined Much improved Angioedema resolved Afebrile, mild cough remaining Review of Systems Constitutional: Denies: fever. Respiratory: Denies: SOB, wheezing. Cardiovascular: Denies: chest pain, edema. Objective General VS/I O: Vital Signs: Date Time Temp Pulse Resp B/P B/P Pulse O2 O2 F low FiO2 Mean Ox Delivery Rate 03/07 1043 37.0 53 20 120/78 91.9 96 Room air 03/07 0710 36.5 63 18 125/69 87.6 97 Room air 03/07 0619 98 Room air 03/07 0318 36.7 60 18 109/67 80.6 97 Room air 03/06 2225 36.7 68 18 121/70 87.2 98 Room air 03/06 1853 36.8 61 18 118/65 82.8 98 Room air 03/06 1845 97 Room air 03/06 1434 36.9 70 17 121/71 87.5 97 Room air 24 hour I O ending at 0700: 03/06 1900 03/07 0700 Intake Total 100 Output Total 1200 Balance -1100 Intake, Oral 100 Number Voids 1 Output, Urine 1200 PATIENT WEIGHT: Weight (lb): Weight (oz): Weight (kg): 70.000 Physical Exam General appearance: alert, awake, oriented Head/Eyes: atraumatic, clear cornea, EOMI, zeynep l conjunctiva/sclera, normal eyelids/periorb., normocephalic, PERRL ENT: normal dentition, normal ear left, normal e ar right, normal nose, normal pharynx, normal sinus Neck: full range of motion, non-tender, normal thyroid, supple/no meningismus, no bruit/NL carotids, no JVD, no masses or swell ing Cardiovascular: normal heart sounds, regular rat e rhythm Respiratory: decreased breath sounds right side Abdomen: non-tender, normal bowel sounds, soft, no distention Extremities: no cyanosis, no edema Musculoskeletal: normal inspection, painless ran ge of motion Neuro/DRIP BOX TENDER: alert, oriented X 3, normal speech Skin: dry, intact Lymphatics: axilla normal, inguinal normal, neck normal, no lymphadenopathy Psychiatry: normal mood Results Findings/Data: Laboratory Tests 03/06 03/06 03/07 03/07 1432 1952 0711 1044 Chemistry POC Glucose (70 - 110 mg/dL) 107 100 91 80 Diagnosis, Assessment Plan Consultants: infectious disease Free Text DxA P Notes Free text DxA P notes: Cavitary lesion of lung --likely lung abscess large 5.6 x 4.2 cm thick-walled cavitary lesion IGRA TB negative ID following IV antibiotics : Vancomycin/Zosyn Status post bronc, culture with alpha strep and micrococcus, AFB negative, fungal smears negative Fungal Gram stain negative Sputum culture negative ------- patient clinically improving, decreasing cavity size with antibiotics hence no lung biopsy planned ----Plan repeat CT of chest on Thursday with possi ble home on Thursday with p.o. antibiotics Diabetes mellitus type 2 new diagnosis Hemoglobin A1c 6.5 Start Metformin and sliding scale glucose worsened with steroids Angioedema Resolved hypertension Off lisinopril due to angioedema Depression On Zoloft SCDs as he is ambulatory Discussed with ID regarding home health and home IV infusion if he requires a prolonged iv antibx course Electronically Signed by Merlyn Le MD on at 1306 RPT #:[id number] END OF REPORT 2022-03-06 22:59:00-00:00 [facility] ([facility]) Infectious Dis. Progress Note REPORT#:[id number] REPORT STATUS: Signed DATE:03/06/22 TIME: 2258 PATIENT: CINDY SINGH UNIT #: [id number] ROOM/BED: [place] [address] : 60 AGE: 61 SEX: M ATTEND: May Le MD ADM AUTHOR: Sondra Stephens MD * ALL edits or amendments must be made on the el [employer]/computer document * Subjective Chief complaint: shortness of breath, rib cage pain patient seen and examined chart reviewed and acu te events noted. Patient reports: No: complaints. Nursing reports: No: complaints. Unable to obtain: medical condition, patient con dition Objective General VS/I O: Last Documented: Result Date Time Pulse Ox 97 03/07 0318 B/P 109/67 03/07 0318 B/P Mean 80.6 03/07 0318 O2 Delivery Room air 03/07 0318 Temp 36.7 03/07 0318 Pulse 60 03/07 0318 Resp 18 03/07 0318 FiO2 21 03/05 0703 O2 Flow Rate 0 03/05 0703 Vital Signs Date Temp Pulse Resp B/P B/P Mean Pulse Ox FiO2 03/06-03/07 36.6-37.1 60-70 17-18 109-128/65-71 0.0-87.5 97-98 24 hour I O ending at 0700: 03/07 0700 03/06 1900 Intake Total 100 Output Total 1200 Balance -1100 Intake, Oral 100 Number Voids 1 Output, Urine 1200 PATIENT WEIGHT: Weight (lb): Weight (oz): Weight (kg): 70.000 Medications: Active Meds + DC'd Last 24 Hrs Diphenhydramine HCl (BENADRYL) 50 MG Q4H PRN PRN IV Sodium Chloride (SODIUM CHLORIDE 0.9%) 50 ML Hydrocodone Bitart/Acetaminophen (NORCO 5/325 TA BLET) 1 TAB Q4H PRN PRN PO Dextrose/Water (DEXTROSE 10%) 125 ML ASDIR PRN I V Dextrose/Water (DEXTROSE 10%) 250 ML ASDIR PRN I V Glucagon (GLUCAGON) 1 MG ASDIR PRN IM Insulin Human Lispro (HumaLOG 100 UNITS/ML) SLID ING SCALE AC HS SUBQ Albuterol/Ipratropium (IPRATR-ALBUTEROL 0.5-3 MG /3 ML) 3 ML RTQ4H NEB Senna/Docusate Sodium (SENOKOT S) 2 TAB BID PO Piperacillin Sod/Tazobactam Sod (ZOSYN 3.375 GM VIAL) 3.375 GM Q8H IV Sodium Chloride (SODIUM CHLORIDE 0.9% 100 ML) 1 00 ML Miscellaneous Information (VANCOMYCIN PHARMACY T O DOSE) 1 EACH ASDIR IV (DC) Guaifenesin (MUCINEX ER) 600 MG Q12HR PO Lactobacillus Acidophilus (BACID) 2 CAP BID PO Multivitamins/Minerals Therapeutic (THERAPEUTIC VITAMIN W MINERALS) 1 TAB DAILY PO Sertraline HCl (ZOLOFT) 50 MG DAILY PO Antibiotic start date: Antibiotic: Start Date: Antibiotic: Start Date: Antibiotic: Start Date: Physical Exam General appearance: awake Head/Eyes: clear cornea, EOMI Neck: full range of motion, non-tender, normal thyroid, supple/no meningismus, no bruit/NL carotids, no JVD, no masses or swell ing, no lymphadenopathy Cardiovascular: normal heart sounds, regular rat e rhythm Respiratory: decreased breath sounds Abdomen: non-tender, normal bowel sounds Extremities: moves all, normal capillary refill Musculoskeletal: full range of motion Neuro/DRIP BOX TENDER: alert, CNII-XII intact, normal speech Lymphatics: axilla normal, inguinal normal, neck normal, no lymphadenopathy Psychiatry: unable to evaluate Results Findings/Data: Laboratory Tests 03/06 03/06 03/06 03/06 1952 1432 1022 0646 Chemistry POC Glucose (70 - 110 mg/dL) 100 107 127 H 91 Diagnosis, Assessment Plan Free Text A P: Cavitary lesions - seen on CT - pulmonary following, status post bronchoscopy - rule out TB, await culture results - patient started on Unasyn will discontinue an d broaden antibiotics to vancomycin and zosyn Leukocytosis - likely secondary to above - continue antibiotics and monitor for improvem ent unintentional weight loss - possibly secondary lung disease, workup in pr ogress abdominal pain /right upper quadrant pain - CTA reviewed - may benefit from CTAP - pulmonary following accelerated hypertension - not currently receiving any BP medications - defer to Internal Medicine protein calorie malnutrition -albumin 3.1 on admission -continue to encouraged increased p.o. nutritio n and monitor for improvement Rib cage pain/pain under right axilla -Patient may benefit from pain managemen t, continue current medication regimen per IM clinically better cx reviewed will follow clinically better antibx for 2 more weeks will follow Consultants: infectious disease Electronically Signed by Sondra Stephens MD on 02/21 04/13 at 0645 [facility] #:[id number] END OF REPORT 2022-03-06 12:40:00-00:00 [facility] ([facility]) Pulmonology Progress Note REPORT#:[id number] REPORT STATUS: Signed DATE:03/06/22 TIME: 1240 PATIENT: CINDY SINGH UNIT #: [id number] ROOM/BED: [place] [address] : 60 AGE: 61 SEX: M ATTEND: May Le MD ADM AUTHOR: Jose G Nunes PA * ALL edits or amendments must be made on the [employer]/computer document * Jose G Nunes 03/06/22 1240: Subjective Chief complaint: Chest pain. Patient reports: Yes: feeling better, resting comfortably. No: ch est pain, congestion, cough, shortness of breath, sputum. Comments: Seen and examined, events no juan jose. Feels much better. Doing well. No new issues or c/o. ROS: Denies CP, SOB, cough, congestion, N/V/C/D, HAGAN, chills Objective General VS/I O: Last Documented: Result Date Time Pulse Ox 98 03/06 1106 O2 Delivery Room air 03/06 1106 B/P 113/65 03/06 1023 B/P Mean 81.1 03/06 1023 Temp 36.6 03/06 1023 Pulse 70 03/06 1023 Resp 17 03/06 1023 FiO2 21 03/05 0703 O2 Flow Rate 0 03/05 0703 24 hour I O ending at 0700: 03/06 0700 03/05 1900 Intake Total Output Total 1350 Balance -1350 Number 1 Bowel Movements Number Voids 2 Output, Urine 1350 PATIENT WEIGHT: Weight (lb): Weight (oz): Weight (kg): 70.000 Medications: Active Meds + DC'd Last 24 Hrs Diphenhydramine HCl (BENADRYL) 50 MG Q4H PRN PRN IV Sodium Chloride (SODIUM CHLORIDE 0.9%) 50 ML Hydrocodone Bitart/Acetaminophen (NORCO 5/325 TA BLET) 1 TAB Q4H PRN PRN PO Dextrose/Water (DEXTROSE 10%) 125 ML ASDIR PRN I V Dextrose/Water (DEXTROSE 10%) 250 ML ASDIR PRN I V Glucagon (GLUCAGON) 1 MG ASDIR PRN IM Insulin Human Lispro (HumaLOG 100 UNITS/ML) SLID ING SCALE AC HS SUBQ Albuterol/Ipratropium (IPRATR-ALBUTEROL 0.5-3 MG /3 ML) 3 ML RTQ4H NEB Senna/Docusate Sodium (SENOKOT S) 2 TAB BID PO Lisinopril (PRINIVIL OR ZESTRIL) 5 MG DAILY PO (DC) Piperacillin Sod/Tazobactam Sod (ZOSYN 3.375 GM VIAL) 3.375 GM Q8H IV Sodium Chloride (SODIUM CHLORIDE 0.9% 100 ML) 1 00 ML Miscellaneous Information (VANCOMYCIN PHARMACY T O DOSE) 1 EACH ASDIR IV (CKD) Guaifenesin (MUCINEX ER) 600 MG Q12HR PO Lactobacillus Acidophilus (BACID) 2 CAP BID PO Multivitamins/Minerals Therapeutic (THERAPEUTIC VITAMIN W MINERALS) 1 TAB DAILY PO Sertraline HCl (ZOLOFT) 50 MG DAILY PO Physical Exam General appearance: alert, awake, oriented, no a cute distress Head/eyes: atraumatic, normocephalic, PERRL, EOM I, normal conjunctiva/sclera ENT: ENT: moist mucosal membranes, caries, poor dent ition Neck: no JVD, no lymphadenopathy Cardiovascular: normal S1/S2, regular rate rhyth m, no murmur, no rub Respiratory/chest: decreased breath soun ds (bases), rales, tenderness (marked, right lateral chest) Abdomen: soft, non-tender, normal bowel sounds, no distention, no mass/ organomegaly Genitourinary: urine, no urinary catheter Extremities: moves all, no clubbing, no cyanosis , no edema Musculoskeletal: muscle atrophy Neuro/DRIP BOX TENDER: alert, CNII-XII intact, no motor defi cits Lymphatics: neck normal, no lymphadenopathy Psychiatry: normal affect, n ormal judgment/insight, normal mood, not homicidal, not suicidal Results Findings/Data: Laboratory Tests 03/06 03/05 03/05 0646 1928 1447 Chemistry POC Glucose (70 - 110 mg/dL) 91 110 111 H Diagnosis, Assessment Plan Free Text A P: 1. Cavitary Lung Lesion/Lung abscess -with mild leukocytosis, low grade fever, chills /sweats, pleuritic chest pain without hilar or mediastinal lymphadenopathy. Sm all ipsilateral effusion. Few small bilateral calcified granulomas. -Airborne Isolation may now be discontin ued, as he has had 3 good specimens of sputum, bronch wash and lavage fluid, all negati ve for AFB by smear. -Bronchial washing culture grew only alpha strep and micrococcus, probably normal cassidy. Fungal AFB cultures are pending. A FB smears are negative. Fungal smears negative. -TB seems unlikely with nega tive sputum, bronchial lavage and bronchial washing AFB smears. I believe this is more likely a lung abscess or malignancy -Empiric antibiotics are being managed by ID. -Repeat CT shows reduction i n size indicated response to treatment and likely Dx of lung abscess 2. Pleuritic Chest Pain -Symptomatic pain control -A bit more improvement with treatment so far, a ccording to patient history. -Pleuritic character. 3. Small right, trace left pleural effusions -Monitor -Will consider diagnostic thoracentesis if condi tion worsens 4. Unintentional weight loss -Likely due to lung process above -Workup in progress 5. Hypertension -Have gently reduced BP meds Cont ABx. Repeat CT Thursday. Consultants: infectious disease Porfirio Cool 03/06/221939: Diagnosis, Assessment Plan Additional comments: Patient seen and examined. He is breathing comfortably on room air at rest. Oxyhemoglobin saturation is 95% with patient puneet athing room air at rest. He is eating well. Cough now productive of small amounts of clear s putum. Chest pain is very much improved. Plans are for repeat CT scan early next week, and stopping therapy on March 11. ID is managing antibiotic. Off vancomycin. at 1247 at 1942 RPT #:[id number] END OF REPORT 2022-03-05 19:45:00-00:00 [facility] ([facility]) Hospitalist Progress Note REPORT#:[id number] REPORT STATUS: Signed DATE:03/05/22 TIME: 1944 PATIENT: CINDY SINGH UNIT #: [id number] ROOM/BED: [place] [address] : 60 AGE: 61 SEX: M ATTEND: May Le MD ADM AUTHOR: Eve Vaughan MD * ALL edits or amendments must be made on the [employer] document * Subjective Chief complaint: continues to have R sided chest pain still on room air no SOB angioedema last night, upper lip still swollen facial rash he believes is from shaving, not renetta nful no abd pain 14 point ROS Negative unless stated Objective General VS/I O: Vital Signs: Date Time Temp Pulse Resp B/P B/P Pulse O2 O2 F low FiO2 Mean Ox Delivery Rate 03/05 1833 36.8 62 16 126/68 87.4 97 Room air 03/05 1448 37.0 64 17 110/63 78.7 97 Room air 03/05 1049 36.8 67 18 121/70 86.7 95 Room air 03/05 0703 99 Room air 0 21 03/05 0646 37.0 69 17 151/86 107.3 99 Room air 03/05 0234 36.9 64 16 128/75 92.4 96 Room air 03/04 2218 36.6 60 17 127/76 93.0 97 Room air PATIENT WEIGHT: Weight (lb): Weight (oz): Weight (kg): 70.000 Medications: Active Meds + DC'd Last 24 Hrs Famotidine (PEPCID) 20 MG ONCE ONE IV (DC) Diphenhydramine HCl (BENADRYL) 50 MG Q4H PRN PRN IV Sodium Chloride (SODIUM CHLORIDE 0.9%) 50 ML Diphenhydramine HCl (BENADRYL) 50 MG Q12H PRN AZ N IV (DC) Sodium Chloride (SODIUM CHLORIDE 0.9%) 50 ML Methylprednisolone Sodium Succinate (Solu-MEDROL ) 20 MG ONCE ONE IV (DC) Hydrocodone Bitart/Acetaminophen (NORCO 5/325 TA BLET) 1 TAB Q4H PRN PRN PO Metformin HCl (metFORMIN 500 MG TABLET) 500 MG B ID MEALS PO (DC) Dextrose/Water (DEXTROSE 10%) 125 ML ASDIR PRN I V Dextrose/Water (DEXTROSE 10%) 250 ML ASDIR PRN I V Glucagon (GLUCAGON) 1 MG ASDIR PRN IM Insulin Human Lispro (HumaLOG 100 UNITS/ML) SLID ING SCALE AC HS SUBQ Albuterol/Ipratropium (IPRATR-ALBUTEROL 0.5-3 MG /3 ML) 3 ML RTQ4H NEB Senna/Docusate Sodium (SENOKOT S) 2 TAB BID PO Lisinopril (PRINIVIL OR ZESTRIL) 5 MG DAILY PO Vancomycin HCl (VANCOMYCIN 1,000 MG VIAL) 1,250 MG Q12H IV (DC) Sodium Chloride (SODIUM CHLORIDE 0.9%) 250 ML Piperacillin Sod/Tazobactam Sod (ZOSYN 3.375 GM VIAL) 3.375 GM Q8H IV Sodium Chloride (SODIUM CHLORIDE 0.9% 100 ML) 1 00 ML Miscellaneous Information (VANCOMYCIN PHARMACY T O DOSE) 1 EACH ASDIR IV (CKD) Guaifenesin (MUCINEX ER) 600 MG Q12HR PO Lactobacillus Acidophilus (BACID) 2 CAP BID PO Multivitamins/Minerals Therapeutic (THERAPEUTIC VITAMIN W MINERALS) 1 TAB DAILY PO Sertraline HCl (ZOLOFT) 50 MG DAILY PO Nutrition assessment: The data set between the solid lines has been im ported from the dietitian's assessment. Any exceptions have been noted under Provider comments. BMI Calculated: 22.8 Nutrition related diagnosis: Nutrition diagnosis details: Nutrition problem: Nutrition etiology: Nutrition signs and symptoms: Nutrition prescription: Dietitian name: Assessment completed: Provider comments on imported dietitian assessme nt: Results Findings/Data: Laboratory Tests 03/05 03/05 03/05 03/05 03/05 1928 1447 1048 0644 0530 Chemistry Creatinine (0.60 - 1.30 mg/dL) 1.27 POC Glucose (70 - 110 mg/dL) 110 111 H 205 H 12 8 H 03/049 Chemistry POC Glucose (70 - 110 mg/dL) 97 Free Text Obj Notes Free Text Obj Notes: PHYSICAL EXAMINATION: General appearance: awake, no acute distress Head/Eyes: atraumatic, face is symmetric ENT: moist mucosal membranes Neck: supple, non-tender, no masses or swelling Cardiovascular: regular rate rhythm, normal hear t sounds Respiratory: Clear to auscultation, no distress Abdomen/GI: active bowel sounds, soft, non-tende r, no distention Extremities: moves all, no edema, no cyanosis Neuro/DRIP BOX TENDER: alert, oriented X 3, no focal deficit s Skin: dry, intact Psychiatry: Mood appropriate Diagnosis, Assessment Plan Consultants: infectious disease Free Text DxA P Notes Free text DxA P notes: Cavitary lesion of lung --likely lung abscess large 5.6 x 4.2 cm thick-walled cavitary lesion IGRA TB pending isolation airborne discontinued ID following IV antibiotics : Vancomycin/Zosyn Status post bron, culture with alpha strep and micrococcus, AFB negative, fungal smears negative Fungal Gram stain negative Sputum culture negative -- biopsy not done today as the CT scan showed smaller size of the right upper lobe lesion recommended follow-up in 4 to 5 days -- pleuritic chest pain and wieght loss Diabetes mellitus type 2 new diagnosis Hemoglobin A1c 6.5 Start Metformin and sliding scale glucose worsened with steroids Hypertension Low normal, DC lisinopril if persistently low Depression On Zoloft SCDs as he is ambulatory Acute Angioedema likely due to lisinopril stop and add to allergies dc per pulm Electronically Signed by Eve Vaughan MD on at 1946 RPT #:[id number] END OF REPORT 2022-03-05 14:02:00-00:00 [facility] ([facility]) Infectious Dis. Progress Note REPORT#:[id number] REPORT STATUS: Signed DATE:03/05/22 TIME: 1401 PATIENT: CINDY SINGH UNIT #: [id number] ROOM/BED: [place] [address] : 60 AGE: 61 SEX: M ATTEND: May Le MD ADM AUTHOR: Sondra Stephens MD * ALL edits or amendments must be made on the [employer]computer document * Subjective Chief complaint: shortness of breath, rib cage pain patient seen and examined chart reviewed and ac [place] events noted. Objective General Antibiotic start date: Antibiotic: Start Date: Antibiotic: Start Date: Antibiotic: Start Date: Physical Exam Head/Eyes: clear cornea, EOMI Neck: full range of motion, non-tender, normal thyroid, supple/no meningismus, no bruit/NL carotids, no JVD, no masses or swell ing, no lymphadenopathy Cardiovascular: normal heart sounds, regular rat e rhythm Respiratory: decreased breath sounds Abdomen: non-tender, normal bowel sounds Extremities: moves all, normal capillary refill Musculoskeletal: full range of motion Neuro/DRIP BOX TENDER: alert, CNII-XII intact, normal speech Lymphatics: axilla normal, inguinal normal, neck normal, no lymphadenopathy Psychiatry: unable to evaluate Diagnosis, Assessment Plan Free Text A P: Cavitary lesions - seen on CT - pulmonary following, status post bronchoscopy - rule out TB, await culture results - patient started on Unasyn will discontinue an d broaden antibiotics to vancomycin and zosyn Leukocytosis - likely secondary to above - continue antibiotics and monitor for improvem ent unintentional weight loss - possibly secondary lung disease, workup in pr ogress abdominal pain /right upper quadrant pain - CTA reviewed - may benefit from CTAP - pulmonary following accelerated hypertension - not currently receiving any BP medications - defer to Internal Medicine protein calorie malnutrition -albumin 3.1 on admission -continue to encouraged increased p.o. nutritio n and monitor for improvement Rib cage pain/pain under right axilla -Patient may benefit from pain managemen t, continue current medication regimen per IM clinically better cx reviewed will follow Consultants: infectious disease Electronically Signed by Sondra Stephens MD on 02/22 07/14 at 0029 RPT #:[id number] END OF REPORT 2022-03-05 12:06:00-00:00 [facility] ([facility]) Pulmonology Progress Note REPORT#:[id number] REPORT STATUS: Signed DATE:03/05/22 TIME: 120 PATIENT: CINDY SINGH UNIT #: [id number] ROOM/BED: [place] [address] : 60 AGE: 61 SEX: M ATTEND: May Le MD ADM AUTHOR: Jose G Nunes PA * ALL edits or amendments must be made on the [employer]/computer document * Jose G Nunes 03/05/22 1206: Subjective Chief complaint: Chest pain. Patient reports: Yes: feeling better, sputum. No: chest pain, con gestion, cough, shortness of breath. Comments: Seen and examined, events no juan jose. Pt reports expectorating secretions more easily and overall felling significantly better. ROS: Denies CP, N/V/C/D, HAGAN, chills, SOB Objective General VS/I O: Last Documented: Result Date Time Pulse Ox 95 03/05 1049 B/P 121/70 03/05 1049 B/P Mean 86.7 03/05 1049 O2 Delivery Room air 03/05 1049 Temp 36.8 03/05 1049 Pulse 67 03/05 1049 Resp 18 03/05 1049 FiO2 21 03/05 0703 O2 Flow Rate 0 03/05 0703 PATIENT WEIGHT: Weight (lb): Weight (oz): Weight (kg): 70.000 Medications: Active Meds + DC'd Last 24 Hrs Famotidine (PEPCID) 20 MG ONCE ONE IV (DC) Diphenhydramine HCl (BENADRYL) 50 MG Q4H PRN PRN IV Sodium Chloride (SODIUM CHLORIDE 0.9%) 50 ML Diphenhydramine HCl (BENADRYL) 50 MG Q12H PRN AZ N IV (DC) Sodium Chloride (SODIUM CHLORIDE 0.9%) 50 ML Methylprednisolone Sodium Succinate (Solu-MEDROL ) 20 MG ONCE ONE IV (DC) Hydrocodone Bitart/Acetaminophen (NORCO 5/325 TA BLET) 1 TAB Q4H PRN PRN PO Metformin HCl (metFORMIN 500 MG TABLET) 500 MG B ID MEALS PO (DC) Dextrose/Water (DEXTROSE 10%) 125 ML ASDIR PRN I V Dextrose/Water (DEXTROSE 10%) 250 ML ASDIR PRN I V Glucagon (GLUCAGON) 1 MG ASDIR PRN IM Insulin Human Lispro (HumaLOG 100 UNITS/ML) SLID ING SCALE AC HS SUBQ Albuterol/Ipratropium (IPRATR-ALBUTEROL 0.5-3 MG /3 ML) 3 ML RTQ4H NEB Senna/Docusate Sodium (SENOKOT S) 2 TAB BID PO Lisinopril (PRINIVIL OR ZESTRIL) 5 MG DAILY PO Vancomycin HCl (VANCOMYCIN 1,000 MG VIAL) 1,250 MG Q12H IV (DC) Sodium Chloride (SODIUM CHLORIDE 0.9%) 250 ML Piperacillin Sod/Tazobactam Sod (ZOSYN 3.375 GM VIAL) 3.375 GM Q8H IV Sodium Chloride (SODIUM CHLORIDE 0.9% 100 ML) 1 00 ML Miscellaneous Information (VANCOMYCIN PHARMACY T O DOSE) 1 EACH ASDIR IV (CKD) Guaifenesin (MUCINEX ER) 600 MG Q12HR PO Lactobacillus Acidophilus (BACID) 2 CAP BID PO Multivitamins/Minerals Therapeutic (THERAPEUTIC VITAMIN W MINERALS) 1 TAB DAILY PO Sertraline HCl (ZOLOFT) 50 MG DAILY PO Physical Exam General appearance: alert, awake, oriented Head/eyes: atraumatic, normocephalic, PERRL, EOM I, normal conjunctiva/sclera ENT: ENT: moist mucosal membranes, caries, poor dent ition Neck: no JVD, no lymphadenopathy Cardiovascular: normal S1/S2, regular rate rhyth m, no murmur, no rub Respiratory/chest: decreased breath soun ds (bases), rales, tenderness (marked, right lateral chest) Abdomen: soft, non-tender, normal bowel sounds, no distention, no mass/ organomegaly Genitourinary: urine, no urinary catheter Extremities: moves all, no clubbing, no cyanosis , no edema Musculoskeletal: muscle atrophy Neuro/DRIP BOX TENDER: alert, CNII-XII intact, no motor defi cits Lymphatics: neck normal, no lymphadenopathy Psychiatry: normal affect, n ormal judgment/insight, normal mood, not homicidal, not suicidal Results Findings/Data: Laboratory Tests 03/05/22 0530: [Embedded Image Not Available] Laboratory Tests 03/05 03/05 03/05 03/04 1048 0644 0530 1163 Chemistry Creatinine (0.60 - 1.30 mg/dL) 1.27 POC Glucose (70 - 110 mg/dL) 205 H 128 H 97 Treatment Prophylaxis Treatment Prophylaxis Oxygen: room air (SpO2 96%), simple mask (PRN) Anti-infectives: piperacillin-tazobactam, vancom ycin Sedation: morphine Diagnosis, Assessment Plan Free Text A P: 1. Cavitary Lung Lesion -with mild leukocytosis, low grade fever, chills /sweats, pleuritic chest pain without hilar or mediastinal lymphadenopathy. Sm all ipsilateral effusion. Few small bilateral calcified granulomas. -Airborne Isolation may now be discontin ued, as he has had 3 good specimens of sputum, bronch wash and lavage fluid, all negati ve for AFB by smear. -Bronchial washing culture grew only alpha strep and micrococcus, probably normal cassidy. Fungal AFB cultures are pending. A FB smears are negative. Fungal smears negative. -TB seems unlikely with nega tive sputum, bronchial lavage and bronchial washing AFB smears. I believe this is more likely a lung abscess or malignancy -Empiric antibiotics are being managed by ID. -Repeat CT shows reduction i n size indicated response to treatment and likely Dx of lung abscess 2. Pleuritic Chest Pain -Symptomatic pain control -A bit more improvement with treatment so far, a ccording to patient history. -Pleuritic character. 3. Small right, trace left pleural effusions -Monitor -Will consider diagnostic thoracentesis if condi tion worsens 4. Unintentional weight loss -Likely due to lung process above -Workup in progress 5. Hypertension -Have gently reduced BP meds Consultants: infectious disease Porfirio Cool 03/05/222101: Diagnosis, Assessment Plan Additional comments: Patient seen and examined. He is breathing comfortably on room air at rest. Oxyhemoglobin saturation 97% on room air at rest . Eating satisfactorily. He has much less chest pain with deep inspiratio n. Pain is still right anterior chest in location. Is coughing up very little sputum now. Sputum has cleared in character. When sent for CT-guided biopsy recently, lung ab scess was noted to have decreased significantly in size, suggesting infl ammatory etiology. Continued antibiotics being given. at 1212 at 6352 [facility] #:[id number] END OF REPORT 2022-03-04 14:53:00-00:00 [facility] ([facility]) Pharmacy Prog.Note-Vancomycin REPORT#:[id number] REPORT STATUS: Signed DATE:03/04/22 TIME: 1453 PATIENT: CINDY SINGH UNIT #: [id number] ROOM/BED: [place] [address] : 60 AGE: 61 SEX: M ATTEND: May Le MD ADM AUTHOR: Essence Whitley [facility] * ALL edits or amendments must be made on the el [employer]/computer document * Vancomycin Vancomycin Medication Therapy Goal: trough 15-20 mcg/mL Indication for treatment: lung lesion Current therapy: vancomycin 1.25gm iv q 12 hr Labs: Laboratory Tests: 03/03 1717 Toxicology Vancomycin Trough (10 - 20 mcg/mL) 17.1 Laboratory Test : 03/04 0638 Hematology WBC (4.5 - 11.0 K/mm3) 10.2 Treatment plan: consult, cont current regimen/do se Additional Comments: HPI: LD is a 61-year-old male past medical history significant for hypertension admitted to [facility] ED with a chief complaint of productive cough with blood in sput um and 12 lb weight loss over the last 3 weeks. Patient al so reported right-sided chest pain under his axilla and feels as if something may be wrong with his ribcage. Patient was noted to have mild hypertension with a blood pres sure of 160/82. Patient was also noted to have leukocytosis with a WBC of 14.3, hemoglo bin 11.6, hematocrit 35.9, platelets 379. urine drug sc reen recs reviewed and noted to be only positive for opiates. Patient was negative for COVID-19. UA w as performed and appears negative. Chest x-ray was performed showing a de nse opacity within the right mid to lower lung zone measuring at least 6 cm b elieved to be a large consolidation or mass with radiology recommendin g CT. Patient's CT was also reviewed showing Large 5.6 x 4.2 cm thic k-walled cavitary lesion. Differential diagnosis includes fungal infection (inc luding TB) or malignancy. TB should be considered the primary diagnosis until proven ot herwise. patient was admitted for cavitary lung lesion wit h plans for bronchoscopy and TB rule out. Thank you Dr. Abel for this kind consultation we will co lion to follow the patient closely with you. Pharmacy consulted for vancomycin dosing Assessment/Plan * pt initiated on vancomycin 1250 mg iv q 12 hr for lung lesion * trough therapeutic 17.1 * continue vancomycin 1250mg iv q 12 hr * srcr/crcl w/am labs * will monitor patient adjust dose as needed to maintain trough 15-20 mcg/mL Please contact a pharmacist with any questions r egarding vancomycin. Thanks for the consultation, Electronically Signed by Essence Whitley [facility] on 0 03/04/22 at 1454 RPT #:[id number] END OF REPORT 2022-03-04 14:45:00-00:00 [facility] ([facility]) Infectious Dis. Progress Note REPORT#:[id number] REPORT STATUS: Signed DATE:03/04/22 TIME: 1445 PATIENT: CINDY SINGH UNIT #: [id number] ROOM/BED: [place] [address] : 60 AGE: 61 SEX: M ATTEND: May Le MD ADM AUTHOR: Sondra Stephens MD * ALL edits or amendments must be made on the [employer]/computer document * Subjective Chief complaint: shortness of breath, rib cage pain patient seen and examined chart reviewed and acu te events noted. Patient reports: Yes: pain controlled. Nursing reports: Yes: complaints. Unable to obtain: medical condition, patient con dition Objective General VS/I O: Last Documented: Result Date Time Pulse Ox 97 03/04 2218 B/P 127/76 03/04 2218 B/P Mean 93.0 03/04 2218 O2 Delivery Room air 03/04 2218 Temp 36.6 03/04 2218 Pulse 60 04/12 2218 Resp 17 03/04 2218 FiO2 44 03/04 0640 O2 Flow Rate 6 03/04 0640 Vital Signs Date Temp Pulse Resp B/P B/P Mean Pulse Ox FiO2 03/04 36.1-36.9 56-65 13-17 116-139/64-81 83.6- 98.7 94-97 44 24 hour I O ending at 0700: 03/04 0700 03/03 1900 Intake Total 1550.00 Output Total Balance 1550.00 Intake, IV 450.00 Intake, Oral 1100 Number 0 Bowel Movements Number Voids 7 PATIENT WEIGHT: Weight (lb): Weight (oz): Weight (kg): 70.000 Medications: Active Meds + DC'd Last 24 Hrs Diphenhydramine HCl (BENADRYL) 50 MG Q4H PRN PRN IV Sodium Chloride (SODIUM CHLORIDE 0.9%) 50 ML Diphenhydramine HCl (BENADRYL) 50 MG Q12H PRN AZ N IV (DC) Sodium Chloride (SODIUM CHLORIDE 0.9%) 50 ML Methylprednisolone Sodium Succinate (Solu-MEDROL ) 20 MG ONCE ONE IV (DC) Hydrocodone Bitart/Acetaminophen (NORCO 5/325 TA BLET) 1 TAB Q4H PRN PRN PO Metformin HCl (metFORMIN 500 MG TABLET) 500 MG B ID MEALS PO (DC) Dextrose/Water (DEXTROSE 10%) 125 ML ASDIR PRN I V Dextrose/Water (DEXTROSE 10%) 250 ML ASDIR PRN I V Glucagon (GLUCAGON) 1 MG ASDIR PRN IM Insulin Human Lispro (HumaLOG 100 UNITS/ML) SLID ING SCALE AC HS SUBQ Fentanyl Citrate (SUBLIMAZE) 0 .STK-MED ONE IV ( DC) Midazolam HCl (VERSED 5MG/5ML) 0 .STK-MED ONE IV (DC) Albuterol/Ipratropium (IPRATR-ALBUTEROL 0.5-3 MG /3 ML) 3 ML RTQ4H NEB Senna/Docusate Sodium (SENOKOT S) 2 TAB BID PO Lisinopril (PRINIVIL OR ZESTRIL) 5 MG DAILY PO Vancomycin HCl (VANCOMYCIN 1,000 MG VIAL) 1,250 MG Q12H IV Sodium Chloride (SODIUM CHLORIDE 0.9%) 250 ML Piperacillin Sod/Tazobactam Sod (ZOSYN 3.375 GM VIAL) 3.375 GM Q8H IV Sodium Chloride (SODIUM CHLORIDE 0.9% 100 ML) 1 00 ML Miscellaneous Information (VANCOMYCIN PHARMACY T O DOSE) 1 EACH ASDIR IV (CKD) Guaifenesin (MUCINEX ER) 600 MG Q12HR PO Lactobacillus Acidophilus (BACID) 2 CAP BID PO Multivitamins/Minerals Therapeutic (THERAPEUTIC VITAMIN W MINERALS) 1 TAB DAILY PO Sertraline HCl (ZOLOFT) 50 MG DAILY PO Antibiotic start date: Antibiotic: Start Date: Antibiotic: Start Date: Antibiotic: Start Date: Physical Exam General appearance: awake Head/Eyes: clear cornea, EOMI Neck: full range of motion, non-tender, normal thyroid, supple/no meningismus, no bruit/NL carotids, no JVD, no masses or swell ing, no lymphadenopathy Cardiovascular: normal heart sounds, regular rat e rhythm Respiratory: decreased breath sounds Abdomen: non-tender, normal bowel sounds Extremities: moves all, normal capillary refill Musculoskeletal: full range of motion Neuro/DRIP BOX TENDER: alert, CNII-XII intact, normal speech Lymphatics: axilla normal, inguinal normal, neck normal, no lymphadenopathy Psychiatry: unable to evaluate Results Findings/Data: Laboratory Tests 03/049 0638 Chemistry POC Glucose (70 - 110 mg/dL) 97 Hemoglobin A1c (4.8 - 6.0 %A1C) 6.5 H Estim Average Glucose (MG/DL) 140 Laboratory Tests 03/04 0638 Hematology WBC (4.5 - 11.0 K/mm3) 10.2 RBC (4.40 - 5.90 M/mm3) 4.06 L Hgb (13.0 - 17.0 gm/dL) 11.6 L Hct (36.0 - 48.0 %) 35.8 L MCV (80.0 - 94.0 UM3) 88.2 MCH (25.5 - 32.5 UUG) 28.6 MCHC (29.0 - 35.5 gm/dL) 32.4 RDW (11.5 - 15.0 %) 13.4 Plt Count (150 - 400 K/mm3) 428 H MPV (7.4 - 10.4 fl) 10.0 Neut % (Auto) (49.0 - 76.0 %) 71.6 Lymph % (Auto) (23.0 - 38.0 %) 14.1 L Rice % (Auto) (1.0 - 10.0 %) 9.4 Eos % (Auto) (1.0 - 5.0 %) 4.0 Baso % (Auto) (0.0 - 1.0 %) 0.5 Neut # (Auto) (2.4 - 6.3 K/mm3) 7.3 H Lymph # (Auto) (1.2 - 4.0 K/mm3) 1.4 Rice # (Auto) (0.0 - 0.6 K/mm3) 1.0 H Eos # (Auto) (0.0 - 0.7 K/MM3) 0.4 Baso # (Auto) (0.0 - 0.2 K/mm3) 0.1 Absolute Nucleated RBC (0.00 - 0.01 X10 3uL) 0. 00 Immature Gran % (0.0 - 0.4 %) 0.4 Nucleated RBC % (0.0 - 0.1 %) 0.0 Immature Gran # (0.00 - 0.07 x10 3/uL) 0.04 Radiology data: Recent Impressions: CAT SCAN - CT CHEST W/O CONTRAST 03/04 0934 Report Impression - Status: SIGNED Entered: 03/04/2022 0953 IMPRESSION: Considerably smaller size to the ant erior right upper lobe lesion. The ellis appear to be thinner and less central fluid present, all findings suggesting lung abscess/in fection responding to treatment. Follow-up in another 4- 5 days may be helpful More atelectasis in the lower lobes, less likely pneumonia with effusions present, small or [id number] on the right and trace on the left. Location: U19 Impression By: [email or web address] - Tomas Walters MD Diagnosis, Assessment Plan Free Text A P: Cavitary lesions - seen on CT - pulmonary following, status post bronchoscopy - rule out TB, await culture results - patient started on Unasyn will discontinue an d broaden antibiotics to vancomycin and zosyn Leukocytosis - likely secondary to above - continue antibiotics and monitor for improvem ent unintentional weight loss - possibly secondary lung disease, workup in pr ogress abdominal pain /right upper quadrant pain - CTA reviewed - may benefit from CTAP - pulmonary following accelerated hypertension - not currently receiving any BP medications - defer to Internal Medicine protein calorie malnutrition -albumin 3.1 on admission -continue to encouraged increased p.o. nutritio n and monitor for improvement Rib cage pain/pain under right axilla -Patient may benefit from pain managemen t, continue current medication regimen per IM clinically better cx reviewed will follow Consultants: infectious disease Electronically Signed by Sondra Stephens MD on 02/21 01/14 at 2327 RPT #:[id number] END OF REPORT 2022-03-04 13:27:00-00:00 [facility] ([facility] Pulmonology Progress Note REPORT#:[id number] REPORT STATUS: Signed DATE:03/04/22 TIME: 1327 PATIENT: CINDY SINGH UNIT #: [id number] ROOM/BED: [place] [address] : 60 AGE: 61 SEX: M ATTEND: May Le MD ADM AUTHOR: Jose G Nunes PA * ALL edits or amendments must be made on the [employer]/computer document * Jose G Nunes 03/04/22 1327: Subjective Chief complaint: Chest pain. Patient reports: Yes: feeling better. No: chest pain, congestion, cough, shortness of breath. Comments: Seen and examined, events noted. No new issues o r c/o. Feels slightly better today, s/p repeat CT chest this a.m. ROS: Denies CP, SOB, cough, congestion, N/V/C/D, HAGAN, chills Objective General VS/I O: Last Documented: Result Date Time Pulse Ox 96 03/04 1038 B/P 123/64 03/04 1038 B/P Mean 83.6 03/04 1038 O2 Delivery Room air 03/04 1038 Pulse 65 03/04 1038 Resp 15 03/04 1038 Temp 36.7 03/04 0702 FiO2 44 03/04 0640 O2 Flow Rate 6 03/04 0640 24 hour I O ending at 0700: 03/04 0700 03/03 1900 Intake Total 1550.00 Output Total Balance 1550.00 Intake, IV 450.00 Intake, Oral 1100 Number 0 Bowel Movements Number Voids 7 PATIENT WEIGHT: Weight (lb): Weight (oz): Weight (kg): 70.000 Medications: Active Meds + DC'd Last 24 Hrs Metformin HCl (metFORMIN 500 MG TABLET) 500 MG B ID MEALS PO Fentanyl Citrate (SUBLIMAZE) 0 .STK-MED ONE IV ( DC) Midazolam HCl (VERSED 5MG/5ML) 0 .STK-MED ONE IV (DC) Albuterol/Ipratropium (IPRATR-ALBUTEROL 0.5-3 MG /3 ML) 3 ML RTQ4H NEB Senna/Docusate Sodium (SENOKOT S) 2 TAB BID PO Lisinopril (PRINIVIL OR ZESTRIL) 5 MG DAILY PO Vancomycin HCl (VANCOMYCIN 1,000 MG VIAL) 1,250 MG Q12H IV Sodium Chloride (SODIUM CHLORIDE 0.9%) 250 ML Piperacillin Sod/Tazobactam Sod (ZOSYN 3.375 GM VIAL) 3.375 GM Q8H IV Sodium Chloride (SODIUM CHLORIDE 0.9% 100 ML) 1 00 ML Miscellaneous Information (VANCOMYCIN PHARMACY T O DOSE) 1 EACH ASDIR IV (CKD) Guaifenesin (MUCINEX ER) 600 MG Q12HR PO Lactobacillus Acidophilus (BACID) 2 CAP BID PO Multivitamins/Minerals Therapeutic (THERAPEUTIC VITAMIN W MINERALS) 1 TAB DAILY PO Sertraline HCl (ZOLOFT) 50 MG DAILY PO Physical Exam General appearance: alert, awake, oriented, no a cute distress Head/eyes: atraumatic, normocephalic, PERRL, EOM I, normal conjunctiva/sclera ENT: ENT: moist mucosal membranes, caries, poor dent ition Neck: no JVD, no lymphadenopathy Cardiovascular: normal S1/S2, regular rate rhyth m, no murmur, no rub Respiratory/chest: decreased breath soun ds (bases), rales, tenderness (marked, right lateral chest) Abdomen: soft, non-tender, normal bowel sounds, no distention, no mass/ organomegaly Genitourinary: urine, no urinary catheter Extremities: moves all, no clubbing, no cyanosis , no edema Musculoskeletal: muscle atrophy Neuro/DRIP BOX TENDER: alert, CNII-XII intact, no motor defi cits Lymphatics: neck normal, no lymphadenopathy Psychiatry: normal affect, n ormal judgment/insight, normal mood, not homicidal, not suicidal Results Findings/Data: Laboratory Tests 03/04/22 0638: [Embedded Image Not Available] Laboratory Tests 03/04 638 Chemistry Hemoglobin A1c (4.8 - 6.0 %A1C) 6.5 H Estim Average Glucose (MG/DL) 140 Laboratory Tests 03/04 0638 Hematology WBC (4.5 - 11.0 K/mm3) 10.2 RBC (4.40 - 5.90 M/mm3) 4.06 L Hgb (13.0 - 17.0 gm/dL) 11.6 L Hct (36.0 - 48.0 %) 35.8 L MCV (80.0 - 94.0 UM3) 88.2 MCH (25.5 - 32.5 UUG) 28.6 MCHC (29.0 - 35.5 gm/dL) 32.4 RDW (11.5 - 15.0 %) 13.4 Plt Count (150 - 400 K/mm3) 428 H MPV (7.4 - 10.4 fl) 10.0 Neut % (Auto) (49.0 - 76.0 %) 71.6 Lymph % (Auto) (23.0 - 38.0 %) 14.1 L Rice % (Auto) (1.0 - 10.0 %) 9.4 Eos % (Auto) (1.0 - 5.0 %) 4.0 Baso % (Auto) (0.0 - 1.0 %) 0.5 Neut # (Auto) (2.4 - 6.3 K/mm3) 7.3 H Lymph # (Auto) (1.2 - 4.0 K/mm3) 1.4 Rice # (Auto) (0.0 - 0.6 K/mm3) 1.0 H Eos # (Auto) (0.0 - 0.7 K/MM3) 0.4 Baso # (Auto) (0.0 - 0.2 K/mm3) 0.1 Absolute Nucleated RBC (0.00 - 0.01 X10 3uL) 0. 00 Immature Gran % (0.0 - 0.4 %) 0.4 Nucleated RBC % (0.0 - 0.1 %) 0.0 Immature Gran # (0.00 - 0.07 x10 3/uL) 0.04 Laboratory Tests 03/037 Toxicology Vancomycin Trough (10 - 20 mcg/mL) 17.1 Radiology data: Recent Impressions: CAT SCAN - CT CHEST W/O CONTRAST 03/04 0934 Report Impression - Status: SIGNED Entered: 03/04/2022 0953 IMPRESSION: Considerably smaller size to the ant erior right upper lobe lesion. The ellis appear to be thinner and less central fluid present, all findings suggesting lung abscess/in fection responding to treatment. Follow-up in another 4- 5 days may be helpful More atelectasis in the lower lobes, less likely pneumonia with effusions present, small or vmxak-[id number]-[id number] on the right and trace on the left. Location: U19 Impression By: [email or web address] - Tomas Walters MD Results: CT results reviewed Diagnosis, Assessment Plan Free Text A P: 1. Cavitary Lung Lesion -with mild leukocytosis, low grade fever, chills /sweats, pleuritic chest pain without hilar or mediastinal lymphadenopathy. Sm all ipsilateral effusion. Few small bilateral calcified granulomas. -Airborne Isolation may now be discontin ued, as he has had 3 good specimens of sputum, bronch wash and lavage fluid, all negati ve for AFB by smear. -Bronchial washing culture grew only alpha strep and micrococcus, probably normal cassdiy. Fungal AFB cultures are pending. A FB smears are negative. Fungal smears negative. -TB seems unlikely with nega tive sputum, bronchial lavage and bronchial washing AFB smears. I believe this is more likely a lung abscess or malignancy -Empiric antibiotics are being managed by ID. -Repeat CT shows reduction i n size indicated response to treatment and likely Dx of lung abscess 2. Pleuritic Chest Pain -Symptomatic pain control -A bit more improvement with treatment so far, a ccording to patient history. -Pleuritic character. 3. Small right, trace left pleural effusions -Monitor -Will consider diagnostic thoracentesis if condi tion worsens 4. Unintentional weight loss -Likely due to lung process above -Workup in progress 5. Hypertension -Have gently reduced BP meds Consultants: infectious disease Maykel Dominguez 03/04/22 0466: Attestations Physician Attestation Agree w/findings plan: Seen and examined. I agree with the findings and plan as documented by Breana Nunes PA-C. Discussed result of chest CT with Dr. Walters. Continue IV abx for now. at 1338 Electronically Signed by Maykel Dominguez MD on 0 03/04/22 at 1650 [facility] #:[id number] END OF REPORT 2022-03-04 10:51:00-00:00 [facility] ([facility]) Hospitalist Progress Note REPORT#:[id number] REPORT STATUS: Signed DATE:03/04/22 TIME: 1051 PATIENT: CINDY SINGH UNIT #: [id number] ROOM/BED: [place] [address] : 60 AGE: 61 SEX: M ATTEND: May Le MD ADM AUTHOR: Gunjan Potter MD * ALL edits or amendments must be made on the [employer]/computer document * Subjective Chief complaint: Follow-up cavitary lesion of the lung c/o right sided chest pain cough on RA SOB intermittently No fever Review of Systems Constitutional: Denies: generalized weakness. Respiratory: Denies: productive cough (sputum). Cardiovascular: Denies: palpitations. GI: Denies: nausea, vomiting. Objective General VS/I O: Laboratory Tests 03/04/22 0638: [Embedded Image Not Available] 03/03/22 0945: [Embedded Image Not Available] Active Meds + DC'd Last 24 Hrs Fentanyl Citrate (SUBLIMAZE) 0 .STK-MED ONE IV ( DC) Midazolam HCl (VERSED 5MG/5ML) 0 .STK-MED ONE IV (DC) Albuterol/Ipratropium (IPRATR-ALBUTEROL 0.5-3 MG /3 ML) 3 ML RTQ4H NEB Senna/Docusate Sodium (SENOKOT S) 2 TAB BID PO Lisinopril (PRINIVIL OR ZESTRIL) 5 MG DAILY PO Vancomycin HCl (VANCOMYCIN 1,000 MG VIAL) 1,250 MG Q12H IV Sodium Chloride (SODIUM CHLORIDE 0.9%) 250 ML Piperacillin Sod/Tazobactam Sod (ZOSYN 3.375 GM VIAL) 3.375 GM Q8H IV Sodium Chloride (SODIUM CHLORIDE 0.9% 100 ML) 1 00 ML Miscellaneous Information (VANCOMYCIN PHARMACY T O DOSE) 1 EACH ASDIR IV (CKD) Morphine Sulfate (morphine SULFATE) 4 MG Q4H PRN PRN IV (DC) Guaifenesin (MUCINEX ER) 600 MG Q12HR PO Lactobacillus Acidophilus (BACID) 2 CAP BID PO Multivitamins/Minerals Therapeutic (THERAPEUTIC VITAMIN W MINERALS) 1 TAB DAILY PO Sertraline HCl (ZOLOFT) 50 MG DAILY PO Recent Impressions-Last 72 Hrs CAT SCAN - CT CHEST W/O CONTRAST 03/04 934 Report Impression - Status: SIGNED Entered: 03/04/2022 0953 IMPRESSION: Considerably smaller size to the ant erior right upper lobe lesion. The ellis appear to be thinner and less central fluid present, all findings suggesting lung abscess/in fection responding to treatment. Follow-up in another 4- 5 days may be helpful More atelectasis in the lower lobes, less likely pneumonia with effusions present, small or [id number]-[id number] on the right and trace on the left. Location: U19 Impression By: [email or web address] - Tomas Walters MD Vital Signs: Date Time Temp Pulse Resp B/P B/P Pulse O2 O2 F low FiO2 Mean Ox Delivery Rate 03/04 1038 65 15 123/64 83.6 96 Room air 03/04 0702 98.1 56 13 139/71 93.4 96 Room air 03/04 0640 94 Room air 6 44 03/04 0320 97.0 61 14 135/81 98.7 94 Room air 03/03 2307 98.2 57 16 119/65 83.1 96 Room air 03/03 1915 98.1 61 16 149/78 101.9 96 Room air 03/03 1554 98.6 64 20 122/67 85.2 97 03/03 1157 96 Nasal 6 cannula 24 hour I O ending at 0700: 03/04 0700 03/03 1900 Intake Total 1550.00 Output Total Balance 1550.00 Intake, IV 450.00 Intake, Oral 1100 Number 0 Bowel Movements Number Voids 7 PATIENT WEIGHT: Weight (lb): Weight (oz): Weight (kg): 70.000 Free Text Obj Notes Free Text Obj Notes: PHYSICAL EXAMINATION: General appearance: awake, no acute distress Head/Eyes: atraumatic, face is symmetric ENT: moist mucosal membranes Neck: supple, non-tender, no masses or swelling Cardiovascular: regular rate rhythm, normal hear t sounds Respiratory: Clear to auscultation, no distress Abdomen/GI: active bowel sounds, soft, non-tende r, no distention Extremities: moves all, no edema, no cyanosis Neuro/DRIP BOX TENDER: alert, oriented X 3, no focal deficit s Skin: dry, intact Psychiatry: Mood appropriate Diagnosis, Assessment Plan Consultants: infectious disease Free Text DxA P Notes Free text DxA P notes: Cavitary lesion of lung --likely lung abscess large 5.6 x 4.2 cm thick-walled cavitary lesion IGRA TB pending isolation airborne discontinued ID following IV antibiotics : Vancomycin/Zosyn Status post bronc, culture with alpha strep and micrococcus, AFB negative, fungal smears negative Fungal Gram stain negative Sputum culture negative -- biopsy not done today as the CT scan showed smaller size of the right upper lobe lesion recommended follow-up in 4 to 5 days -- pleuritic chest pain and wieght loss Diabetes mellitus type 2 new diagnosis Hemoglobin A1c 6.5 Start Metformin and sliding scale Hypertension Low normal, DC lisinopril if persistently low Depression On Zoloft SCDs as he is ambulatory at 1620 RPT #:[id number] END OF REPORT 2022-03-03 16:02:00-00:00 [facility] ([facility]) Pulmonology Progress Note REPORT#:[id number] REPORT STATUS: Signed DATE:03/03/22 TIME: 1602 PATIENT: CINDY SINGH UNIT #: [id number] ROOM/BED: [place] [address] : 60 AGE: 61 SEX: M ATTEND: May Le MD ADM AUTHOR: Maykel Dominguez MD * ALL edits or amendments must be made on the [employer]/computer document * Subjective Chief complaint: Chest pain. Patient reports: Yes: chest pain, cough, feel ing better, resting comfortably, shortness of breath , sputum. Comments: Slowly better. Appetite poor but improving. Denies any new complaints. RN reports no concerns. ROS negative for f/c, n/v. Objective General VS/I O: Last Documented: Result Date Time Pulse Ox 97 03/03 1554 B/P 122/67 03/03 1554 B/P Mean 85.2 03/03 1554 Temp 98.6 03/03 1554 Pulse 64 03/03 1554 Resp 20 03/03 1554 O2 Delivery Nasal cannula 03/03 1157 O2 Flow Rate 6 03/03 1157 24 hour I O ending at 0700: 03/02 1900 03/03 0700 Intake Total Output Total 1000 Balance -1000 Output, Urine 1000 PATIENT WEIGHT: Weight (lb): Weight (oz): Weight (kg): 70.000 Medications: Active Meds + DC'd Last 24 Hrs Albuterol/Ipratropium (IPRATR-ALBUTEROL 0.5-3 MG /3 ML) 3 ML RTQ4H NEB Senna/Docusate Sodium (SENOKOT S) 2 TAB BID PO Senna/Docusate Sodium (SENOKOT S) 1 TAB BID PO ( DC) Lisinopril (PRINIVIL OR ZESTRIL) 5 MG DAILY PO Vancomycin HCl (VANCOMYCIN 1,000 MG VIAL) 1,250 MG Q12H IV Sodium Chloride (SODIUM CHLORIDE 0.9%) 250 ML Piperacillin Sod/Tazobactam Sod (ZOSYN 3.375 GM VIAL) 3.375 GM Q8H IV Sodium Chloride (SODIUM CHLORIDE 0.9% 100 ML) 1 00 ML Miscellaneous Information (VANCOMYCIN PHARMACY T O DOSE) 1 EACH ASDIR IV (CKD) Morphine Sulfate (morphine SULFATE) 4 MG Q4H PRN PRN IV (DC) Guaifenesin (MUCINEX ER) 600 MG Q12HR PO Lactobacillus Acidophilus (BACID) 2 CAP BID PO Multivitamins/Minerals Therapeutic (THERAPEUTIC VITAMIN W MINERALS) 1 TAB DAILY PO Sertraline HCl (ZOLOFT) 50 MG DAILY PO Nutrition assessment: The data set between the solid lines has been im ported from the dietitian's assessment. Any exceptions have been noted under Provider comments. BMI Calculated: 22.8 Nutrition related diagnosis: Nutrition diagnosis details: Nutrition problem: Nutrition etiology: Nutrition signs and symptoms: Nutrition prescription: Dietitian name: Assessment completed: Provider comments on imported dietitian assessme nt: Physical Exam General appearance: alert, awake Head/eyes: atraumatic, normocephalic, PERRL, EOM I, normal conjunctiva/sclera ENT: ENT: moist mucosal membranes, caries, poor den tition Neck: no JVD, no lymphadenopathy Cardiovascular: normal S1/S2, regular rate rhyth m, no murmur, no rub Respiratory/chest: decreased breath soun ds (bases), rales, tenderness (marked, right lateral chest) Abdomen: soft, non-tender, normal bowel sounds, no distention, no mass/ organomegaly Genitourinary: urine, no urinary catheter Extremities: moves all, no clubbing, no cyanosis , no edema Musculoskeletal: muscle atrophy Neuro/DRIP BOX TENDER: alert, CNII-XII intact, no motor defi cits Lymphatics: neck normal, no lymphadenopathy Psychiatry: normal affect, n ormal judgment/insight, normal mood, not homicidal, not suicidal Results Findings/Data: Laboratory Tests 03/03/22944: [Embedded Image Not Available] Laboratory Tests 03/03 945 Chemistry Sodium (134.0 - 147.0 mmol/l) 139 Potassium (3.6 - 5.2 mmol/L) 4.0 Chloride (98.0 - 107.0 mmol/l) 102 Carbon Dioxide (21.0 - 33.0 mmol/l) 26.5 Anion Gap (0 - 20) 14.5 BUN (7.0 - 18.0 mg/dl) 15 Creatinine (0.60 - 1.30 mg/dL) 1.28 Est GFR ( Amer) (97 - 109 mL/min) 73 L Est GFR (Non-Af Amer) (80 - 90 mL/min) 61 L Glucose (70.0 - 110.0 mg/dl) 241 H Calcium (8.0 - 10.5 mg/dl) 9.1 Laboratory Tests 03/03 0945 Hematology WBC (4.5 - 11.0 K/mm3) 8.9 RBC (4.40 - 5.90 M/mm3) 4.21 L Hgb (13.0 - 17.0 gm/dL) 12.1 L Hct (36.0 - 48.0 %) 38.1 MCV (80.0 - 94.0 UM3) 90.5 MCH (25.5 - 32.5 UUG) 28.7 MCHC (29.0 - 35.5 gm/dL) 31.8 RDW (11.5 - 15.0 %) 13.3 Plt Count (150 - 400 K/mm3) 431 H MPV (7.4 - 10.4 fl) 10.2 Neut % (Auto) (49.0 - 76.0 %) 74.2 Lymph % (Auto) (23.0 - 38.0 %) 12.9 L Rice % (Auto) (1.0 - 10.0 %) 7.0 Eos % (Auto) (1.0 - 5.0 %) 4.9 Baso % (Auto) (0.0 - 1.0 %) 0.7 Neut # (Auto) (2.4 - 6.3 K/mm3) 6.6 H Lymph # (Auto) (1.2 - 4.0 K/mm3) 1.2 Rice # (Auto) (0.0 - 0.6 K/mm3) 0.6 Eos # (Auto) (0.0 - 0.7 K/MM3) 0.4 Baso # (Auto) (0.0 - 0.2 K/mm3) 0.1 Absolute Nucleated RBC (0.00 - 0.01 X10 3uL) 0. 00 Immature Gran % (0.0 - 0.4 %) 0.3 Nucleated RBC % (0.0 - 0.1 %) 0.0 Immature Gran # (0.00 - 0.07 x10 3/uL) 0.03 Diagnosis, Assessment Plan Free Text A P: 1. Cavitary Lung Lesion -with mild leukocytosis, low grade fever, chills /sweats, pleuritic chest pain without hilar or mediastinal lymphadenopathy. Sm all ipsilateral effusion. Few small bilateral calcified granulomas. -Airborne Isolation may now be discontin ued, as he has had 3 good specimens of sputum, bronch wash and lavage fluid, all negati ve for AFB by smear. -Bronchial washing culture grew only alpha strep and micrococcus, probably normal cassidy. Fungal AFB cultures are pending. A FB smears are negative. Fungal smears negative. -TB seems unlikely with nega tive sputum, bronchial lavage and bronchial washing AFB smears. I believe this is more likely a lung abscess or malignancy -Empiric antibiotics are being managed by ID. -Will pursue percutaneous CT-guided lung biopsy. 2. Pleuritic Chest Pain -Symptomatic pain control -A bit more improvement with treatment so far, a ccording to patient history. -Pleuritic character. 3. Unintentional weight loss -Likely due to lung process above -Workup in progress 4. Hypertension -Have gently reduced BP meds Electronically Signed by Maykel Dominguez MD on 0 03/03/22 at 1604 RPT #:[id number] END OF REPORT 2022-03-03 15:33:00-00:00 [facility] ([facility]) Infectious Dis. Progress Note REPORT#:[id number] REPORT STATUS: Signed DATE:03/03/22 TIME: 1533 PATIENT: CINDY SINGH UNIT #: [id number] ROOM/BED: [place] [address] : 60 AGE: 61 SEX: M ATTEND: May Le MD ADM AUTHOR: Sondra Stephens MD * ALL edits or amendments must be made on the [employer]/computer document * Subjective Chief complaint: shortness of breath, rib cage pain patient seen and examined chart reviewed and acu te events noted. Patient reports: No: complaints. Nursing reports: No: complaints. Unable to obtain: medical condition, patient con dition Objective General VS/I O: Last Documented: Result Date Time Pulse Ox 94 03/04 0320 B/P 135/81 03/04 0320 B/P Mean 98.7 03/04 0320 O2 Delivery Room air 03/04 0320 Temp 36.1 03/04 0320 Pulse 61 03/04 0320 Resp 14 03/04 0320 O2 Flow Rate 6 04/11 1157 Vital Signs Date Temp Pulse Resp B/P B/P Mean Pulse Ox FiO2 03/03-03/04 36.1-37.1 52-64 14-20 119-149/65-81 83.1-101.9 94-97 24 hour I O ending at 0700: 03/04 0700 03/03 1900 Intake Total 1550.00 Output Total Balance 1550.00 Intake, IV 450.00 Intake, Oral 1100 Number 0 Bowel Movements Number Voids 7 PATIENT WEIGHT: Weight (lb): Weight (oz): Weight (kg): 70.000 Medications: Active Meds + DC'd Last 24 Hrs Albuterol/Ipratropium (IPRATR-ALBUTEROL 0.5-3 MG /3 ML) 3 ML RTQ4H NEB Senna/Docusate Sodium (SENOKOT S) 2 TAB BID PO Lisinopril (PRINIVIL OR ZESTRIL) 5 MG DAILY PO Vancomycin HCl (VANCOMYCIN 1,000 MG VIAL) 1,250 MG Q12H IV Sodium Chloride (SODIUM CHLORIDE 0.9%) 250 ML Piperacillin Sod/Tazobactam Sod (ZOSYN 3.375 GM VIAL) 3.375 GM Q8H IV Sodium Chloride (SODIUM CHLORIDE 0.9% 100 ML) 1 00 ML Miscellaneous Information (VANCOMYCIN PHARMACY T O DOSE) 1 EACH ASDIR IV (CKD) Morphine Sulfate (morphine SULFATE) 4 MG Q4H PRN PRN IV (DC) Guaifenesin (MUCINEX ER) 600 MG Q12HR PO Lactobacillus Acidophilus (BACID) 2 CAP BID PO Multivitamins/Minerals Therapeutic (THERAPEUTIC VITAMIN W MINERALS) 1 TAB DAILY PO Sertraline HCl (ZOLOFT) 50 MG DAILY PO Antibiotic start date: Antibiotic: Start Date: Antibiotic: Start Date: Antibiotic: Start Date: Physical Exam General appearance: awake Head/Eyes: clear cornea, EOMI Cardiovascular: normal heart sounds, regular rat e rhythm Respiratory: decreased breath sounds Abdomen: non-tender, normal bowel sounds Extremities: moves all, normal capillary refill Musculoskeletal: full range of motion Neuro/DRIP BOX TENDER: alert, CNII-XII intact, normal speech Results Findings/Data: Laboratory Tests 03/03 0945 Chemistry Sodium (134.0 - 147.0 mmol/l) 139 Potassium (3.6 - 5.2 mmol/L) 4.0 Chloride (98.0 - 107.0 mmol/l) 102 Carbon Dioxide (21.0 - 33.0 mmol/l) 26.5 Anion Gap (0 - 20) 14.5 BUN (7.0 - 18.0 mg/dl) 15 Creatinine (0.60 - 1.30 mg/dL) 1.28 Est GFR ( Amer) (97 - 109 mL/min) 73 L Est GFR (Non-Af Amer) (80 - 90 mL/min) 61 L Glucose (70.0 - 110.0 mg/dl) 241 H Calcium (8.0 - 10.5 mg/dl) 9.1 Laboratory Tests 03/03 0945 Hematology WBC (4.5 - 11.0 K/mm3) 8.9 RBC (4.40 - 5.90 M/mm3) 4.21 L Hgb (13.0 - 17.0 gm/dL) 12.1 L Hct (36.0 - 48.0 %) 38.1 MCV (80.0 - 94.0 UM3) 90.5 MCH (25.5 - 32.5 UUG) 28.7 MCHC (29.0 - 35.5 gm/dL) 31.8 RDW (11.5 - 15.0 %) 13.3 Plt Count (150 - 400 K/mm3) 431 H MPV (7.4 - 10.4 fl) 10.2 Neut % (Auto) (49.0 - 76.0 %) 74.2 Lymph % (Auto) (23.0 - 38.0 %) 12.9 L Rice % (Auto) (1.0 - 10.0 %) 7.0 Eos % (Auto) (1.0 - 5.0 %) 4.9 Baso % (Auto) (0.0 - 1.0 %) 0.7 Neut # (Auto) (2.4 - 6.3 K/mm3) 6.6 H Lymph # (Auto) (1.2 - 4.0 K/mm3) 1.2 Rice # (Auto) (0.0 - 0.6 K/mm3) 0.6 Eos # (Auto) (0.0 - 0.7 K/MM3) 0.4 Baso # (Auto) (0.0 - 0.2 K/mm3) 0.1 Absolute Nucleated RBC (0.00 - 0.01 X10 3uL) 0. 00 Immature Gran % (0.0 - 0.4 %) 0.3 Nucleated RBC % (0.0 - 0.1 %) 0.0 Immature Gran # (0.00 - 0.07 x10 3/uL) 0.03 Laboratory Tests 03/03 1717 Toxicology Vancomycin Trough (10 - 20 mcg/mL) 17.1 Diagnosis, Assessment Plan Free Text A P: Cavitary lesions - seen on CT - pulmonary following, status post bronchoscopy - rule out TB, await culture results - patient started on Unasyn will discontinue an d broaden antibiotics to vancomycin and zosyn Leukocytosis - likely secondary to above - continue antibiotics and monitor for improvem ent unintentional weight loss - possibly secondary lung disease, workup in pr ogress abdominal pain /right upper quadrant pain - CTA reviewed - may benefit from CTAP - pulmonary following accelerated hypertension - not currently receiving any BP medications - defer to Internal Medicine protein calorie malnutrition -albumin 3.1 on admission -continue to encouraged increased p.o. nutritio n and monitor for improvement Rib cage pain/pain under right axilla -Patient may benefit from pain managemen t, continue current medication regimen per IM clinically better cx reviewed will follow Consultants: infectious disease Electronically Signed by Sondra Stephens MD on 02/21 01/14 at 0622 RPT #:[id number] END OF REPORT 2022-03-03 10:26:00-00:00 [facility] ([facility]) Hospitalist Progress Note REPORT#:[id number] REPORT STATUS: Signed DATE:03/03/22 TIME: 1026 PATIENT: CINDY SINGH UNIT #: [id number] ROOM/BED: [place] [address] : 60 AGE: 61 SEX: M ATTEND: May Le MD ADM AUTHOR: Gunjan Potter MD * ALL edits or amendments must be made on the [employer]/computer document * Subjective Chief complaint: Follow-up cavitary lesion of the lung c/o right sided chest pain cough on RA SOB intermittently Review of Systems Constitutional: Denies: fever. Respiratory: Denies: productive cough (sputum). Cardiovascular: Denies: palpitations. GI: Denies: nausea, vomiting. Objective General VS/I O: Active Meds + DC'd Last 24 Hrs Albuterol/Ipratropium (IPRATR-ALBUTEROL 0.5-3 MG /3 ML) 3 ML RTQ4H NEB Senna/Docusate Sodium (SENOKOT S) 2 TAB BID PO Senna/Docusate Sodium (SENOKOT S) 1 TAB BID PO ( DC) Lisinopril (PRINIVIL OR ZESTRIL) 5 MG DAILY PO Vancomycin HCl (VANCOMYCIN 1,000 MG VIAL) 1,250 MG Q12H IV Sodium Chloride (SODIUM CHLORIDE 0.9%) 250 ML Piperacillin Sod/Tazobactam Sod (ZOSYN 3.375 GM VIAL) 3.375 GM Q8H IV Sodium Chloride (SODIUM CHLORIDE 0.9% 100 ML) 1 00 ML Miscellaneous Information (VANCOMYCIN PHARMACY T O DOSE) 1 EACH ASDIR IV (CKD) Morphine Sulfate (morphine SULFATE) 4 MG Q4H PRN PRN IV Guaifenesin (MUCINEX ER) 600 MG Q12HR PO Lactobacillus Acidophilus (BACID) 2 CAP BID PO Multivitamins/Minerals Therapeutic (THERAPEUTIC VITAMIN W MINERALS) 1 TAB DAILY PO Sertraline HCl (ZOLOFT) 50 MG DAILY PO Microbiology Date/Time Procedure - Status Source Growth 02/29 1604 Sputum Culture - COMP SPUTUM 02/28 160 Gram Stain - COMP SPUTUM Vital Signs: Date Time Temp Pulse Resp B/P B/P Pulse O2 O2 F low FiO2 Mean Ox Delivery Rate 03/03 0723 98.8 52 18 144/76 98.6 96 Room air 03/03 0241 98.4 56 14 116/61 79.1 94 Room air 03/02 2236 97.9 55 14 134/66 88.6 95 Room air 03/02 1839 97.9 58 14 132/82 98.3 95 Room air 03/02 1629 98.1 56 19 126/79 94.6 94 Room air 03/02 1108 98.4 57 17 105/61 75.5 95 Room air 24 hour I O ending at 0700: 03/03 0700 03/02 1900 Intake Total Output Total 1000 Balance -1000 Output, Urine 1000 PATIENT WEIGHT: Weight (lb): Weight (oz): Weight (kg): 70.000 Physical Exam General appearance: alert, awake, no acute distr ess Cardiovascular: normal heart sounds, regular rat e rhythm Respiratory: decreased breath sounds right side Abdomen: non-tender, normal bowel sounds, soft, no distention Extremities: no cyanosis, no edema Neuro/DRIP BOX TENDER: alert, oriented X 3, normal speech Skin: dry, intact Psychiatry: normal mood Diagnosis, Assessment Plan Consultants: infectious disease Free Text DxA P Notes Free text DxA P notes: Cavitary lesion of lung large 5.6 x 4.2 cm thick-walled cavitary lesion IGRA TB pending /isolation airborne ID following IV antibiotics : Vancomycin/Zosyn Status post bronc, culture with alpha strep and micrococcus Fungal Gram stain negative Sputum culture negative -- biopsy in am -- pleuritic chest pain and wieght loss Hypertension Low normal, DC lisinopril if persistently low Depression On Zoloft SCDs as he is ambulatory Lung biopsy in am Check A1c at 2335 RPT #:[id number] END OF REPORT 2022-03-03 10:15:00-00:00 [facility] ([facility]) Pharmacy Prog.Note-Vancomycin REPORT#:[id number] REPORT STATUS: Signed DATE:03/03/22 TIME: 1015 PATIENT: CINDY SINGH UNIT #: [id number] ROOM/BED: [place] [address] : 60 AGE: 61 SEX: M ATTEND: May Le MD ADM AUTHOR: Elvin Mcneal [facility] * ALL edits or amendments must be made on the [employer]/computer document * Vancomycin Vancomycin Medication Therapy Goal: trough 15-20 mcg/mL Indication for treatment: lung lesion Current therapy: vancomycin 1.25gm iv q 12 hr Weight: Actual weight (kg): 70 VS and I/O: Vital Signs Date Temp Pulse Resp B/P B/P Mean Pulse Ox FiO2 02/28-03/03 36.6-37.4 49-62 14-22 102-144/61-83 75.5-99.7 94-99 72 hours ending at 0700 03/03 0700 03/02 1900 03/02 1900 02/28 07 1900 Intake 240 240 Total Output 1000 800 Total Balance -1000 240 -800 240 Intake, 240 240 Oral Output, 1000 800 Urine 72 Hour I O Total 03/03 0703/01 07 Intake Total 240 240 Output Total 1000 800 Balance -1000 -560 240 Labs: Microbiology: 02/28 160 SPUTUM: Sputum Culture - COMP 02/29 1604 SPUTUM: Gram Stain - COMP Treatment plan: consult, cont current regimen/do se Follow up: Lab: trough rescheduled 03/03@1730 Rationale: trough was not drawn this morning Additional Comments: HPI: LD is a 61-year-old male past medical history significant for hypertension admitted to [facility] ED with a chief complaint of productive cough with blood in sput um and 12 lb weight loss over the last 3 weeks. Patient al so reported right-sided chest pain under his axilla and feels as if something may be wrong with his ribcage. Patient was noted to have mild hypertension with a blood pres sure of 160/82. Patient was also noted to have leukocytosis with a WBC of 14.3, hemoglo bin 11.6, hematocrit 35.9, platelets 379. urine drug sc reen recs reviewed and noted to be only positive for opiates. Patient was negative for COVID-19. UA w as performed and appears negative. Chest x-ray was performed showing a de nse opacity within the right mid to lower lung zone measuring at least 6 cm b elieved to be a large consolidation or mass with radiology recommendin g CT. Patient's CT was also reviewed showing Large 5.6 x 4.2 cm thic k-walled cavitary lesion. Differential diagnosis includes fungal infection (inc luding TB) or malignancy. TB should be considered the primary diagnosis until proven ot herwise. patient was admitted for cavitary lung lesion wit h plans for bronchoscopy and TB rule out. Thank you Dr. Abel for this kind consultation we will co ntinue to follow the patient closely with you. Pharmacy consulted for vancomycin dosing Assessment/Plan * pt initiated on vancomycin 1gm iv q 12 hr for lung lesion * vancomycin trough was not drawn this morning, rescheduled for 03/03@1730 * continue vancomycin 1250mg iv q 12 hr * will monitor patient adjust dose as needed to maintain trough 15-20 mcg/mL Please contact a pharmacist with any questions r egarding vancomycin. Thanks for the consultation, Electronically Signed by Elvin Mcneal [facility] on 03/03 at 1022 RPT #:[id number] END OF REPORT 2022-03-02 20:36:00-00:00 [facility] ([facility]) Pulmonology Progress Note REPORT#:[id number] REPORT STATUS: Signed DATE:03/02/22 TIME: 2035 PATIENT: CINDY SINGH UNIT #: [id number] ROOM/BED: [place] [address] : 60 AGE: 61 SEX: M ATTEND: May Le MD ADM AUTHOR: Porfirio Cool MD * ALL edits or amendments must be made on the [employer]/computer document * Subjective Chief complaint: chest pain somewhat better, cough productive of float operator sputum Patient reports: Yes: ambulating, chest pain, congestion, cough, feeling better, resting comfortably, shortness of breath, sputum , tolerating diet. No: coughing blood, wheezing. Comments: Patient seen and examined. Up to void, standing at bedside with urinal. Discussed risks and potential benefits of CT-kylah ded biopsy. Objective General VS/I O: Last Documented: Result Date Time Pulse Ox 95 03/02 1839 B/P 132/82 03/02 1839 B/P Mean 98.3 03/02 1839 O2 Delivery Room air 03/02 1839 Temp 97.9 03/02 1839 Pulse 58 03/02 1839 Resp 14 03/02 1839 O2 Flow Rate 5 02/27 0126 24 hour I O ending at 0700: 03/01 1900 03/02 0700 Intake Total 240 Output Total 800 Balance -800 240 Intake, Oral 240 Output, Urine 800 PATIENT WEIGHT: Weight (lb): Weight (oz): Weight (kg): 70.000 Physical Exam General appearance: chronically ill appearing, a lert, awake, no respiratory distress Head/eyes: atraumatic, normocephalic, PERRL, EOM I, normal conjunctiva/sclera ENT: ENT: moist mucosal membranes, caries, poor dent ition Neck: no JVD, no lymphadenopathy Cardiovascular: normal S1/S2, regular rate rhyth m, no murmur, no rub Respiratory/chest: decreased breath soun ds (bases), rales, tenderness (marked, right lateral chest) Abdomen: soft, non-tender, normal bowel sounds, no distention, no mass/ organomegaly Genitourinary: urine, no urinary catheter Extremities: moves all, no clubbing, no cyanosis , no edema Musculoskeletal: muscle atrophy Neuro/DRIP BOX TENDER: alert, CNII-XII intact, no motor defi cits Lymphatics: neck normal, no lymphadenopathy Psychiatry: normal affect, n ormal judgment/insight, normal mood, not homicidal, not suicidal Results Results: labs reviewed, vital signs reviewed, vi krystle signs stable, current med profile rev'd Treatment Prophylaxis Treatment Prophylaxis Oxygen: room air (SpO2 96%), simple mask (PRN) Anti-infectives: piperacillin-tazobactam, vancom ycin Sedation: morphine Diagnosis, Assessment Plan Free Text A P: 1. Cavitary Lung Lesion -with mild leukocytosis, low grade fever, chills /sweats, pleuritic chest pain without hilar or mediastinal lymphadenopathy. Sm all ipsilateral effusion. Few small bilateral calcified granulomas. -Airborne Isolation may now be discontin ued, as he has had 3 good specimens of sputum, bronch wash and lavage fluid, all negati ve for AFB by smear. -Bronchial washing culture grew only alpha strep and micrococcus, probably normal cassidy. Fungal AFB cultures are pending. A FB smears are negative. Fungal smears negative. -TB seems unlikely with nega tive sputum, bronchial lavage and bronchial washing AFB smears. I believe this is more likely a lung abscess or malignancy -Empiric antibiotics are being managed by ID. -Will pursue percutaneous CT-guided lung biopsy. 2. Pleuritic Chest Pain -Symptomatic pain control -A bit more improvement with treatment so far, a ccording to patient history. -Pleuritic character. 3. Unintentional weight loss -Likely due to lung process above -Workup in progress 4. Abdominal Discomfort -Improved. Possibly contributing to wt loss? -No recent BM per pt. I will increase dose of Se nokot S 5. Hypertension -Have gently reduced BP meds Continue antibiotics. Continue mucolytics. AFB smears negative. TB much less likely with mu ltiple negative smears. We will probably proceed to needle biopsy, but s ometimes followup CT for guidance may show significan improvement in size which might indicate biopsy is unnecessary. Consultants: infectious disease at 2104 RPT #:[id number] END OF REPORT 2022-03-02 12:12:00-00:00 [facility] ([facility]) Hospitalist Progress Note REPORT#:[id number] REPORT STATUS: Signed DATE:03/02/22 TIME: 121 PATIENT: CINDY SINGH UNIT #: [id number] ROOM/BED: [place] [address] : 60 AGE: 61 SEX: M ATTEND: Alexis Le MD ADM AUTHOR: Merlyn Le MD * ALL edits or amendments must be made on the [employer]/computer document * Subjective Chief complaint: Follow-up cavitary lesion of the lung Cough better More energy Review of Systems Constitutional: Denies: fever. Respiratory: Reports: non productive cough, SOB. Denies: whee zing. Cardiovascular: Denies: chest pain, edema. Objective General VS/I O: Vital Signs: Date Time Temp Pulse Resp B/P B/P Pulse O2 O2 F low FiO2 Mean Ox Delivery Rate 03/02 1108 36.9 57 17 105/61 75.5 95 Room air 03/02 0726 36.8 51 18 117/70 85.7 95 Room air 03/02 0305 37.4 59 18 125/75 91.6 94 Room air 03/01 2307 36.9 49 18 120/70 86.4 95 Room air 03/01 1513 36.8 62 18 116/74 87.6 97 Room air 24 hour I O ending at 0700: 03/01 1900 03/02 0700 Intake Total 240 Output Total 800 Balance -800 240 Intake, Oral 240 Output, Urine 800 PATIENT WEIGHT: Weight (lb): Weight (oz): Weight (kg): 70.000 Physical Exam General appearance: alert, awake, oriented Head/Eyes: atraumatic, clear cornea, EOMI, zeynep l conjunctiva/sclera, normal eyelids/periorb., normocephalic, PERRL ENT: normal dentition, normal ear left, normal e ar right, normal nose, normal pharynx, normal sinus Neck: full range of motion, non-tender, normal thyroid, supple/no meningismus, no bruit/NL carotids, no JVD, no masses or swell ing Cardiovascular: normal capillary refill, normal heart sounds Respiratory: chest wall tenderness, decreased br eath sounds, clear to auscultation, no distress Abdomen: non-tender, normal bowel sounds , soft, no distention, no guarding, no hernia, no mass/organomegaly, no rebound Extremities: moves all, normal capillary refill, normal range of motion, no edema Musculoskeletal: normal inspection, painless ran ge of motion Skin: dry, intact Lymphatics: axilla normal, inguinal normal, neck normal, no lymphadenopathy Diagnosis, Assessment Plan Consultants: infectious disease Free Text DxA P Notes Free text DxA P notes: Cavitary lesion of lung large 5.6 x 4.2 cm thick-walled cavitary lesion IGRA TB pending /isolation airborne ID following IV antibiotics : Vancomycin/Zosyn Status post bronc, culture with alpha strep and micrococcus Fungal Gram stain negative Sputum culture negative May need biopsy if persistent despite antibiotic s Hypertension Low normal, DC lisinopril if persistently low Depression On Zoloft SCDs as he is ambulatory /10 AFB smear negative as per lab Discussed with Dr. Cool Consult IR for biopsy Electronically Signed by Merlyn Le MD on at 1215 RPT #:[id number] END OF REPORT 2022-03-02 06:16:00-00:00 [facility] ([facility]) Infectious Dis. Progress Note REPORT#:[id number] REPORT STATUS: Signed DATE:03/02/22 TIME: 615 PATIENT: CINDY SINGH UNIT #: [id number] ROOM[facility]BED: [facility] : 60 AGE: 61 SEX: M ATTEND: May Le MD ADM AUTHOR: Sondra Stephens MD * ALL edits or amendments must be made on the [employer]/computer document * Subjective Chief complaint: shortness of breath, rib cage pain patient seen and examined chart reviewed and ac [place] events noted. Objective General Antibiotic start date: Antibiotic: Start Date: Antibiotic: Start Date: Antibiotic: Start Date: Physical Exam Head/Eyes: clear cornea, EOMI Cardiovascular: normal heart sounds, regular rat e rhythm Respiratory: decreased breath sounds Abdomen: non-tender, normal bowel sounds Extremities: moves all, normal capillary refill Musculoskeletal: full range of motion Neuro/DRIP BOX TENDER: alert, CNII-XII intact, normal speech Diagnosis, Assessment Plan Free Text A P: Cavitary lesions - seen on CT - pulmonary following, status post bronchoscopy - rule out TB, await culture results - patient started on Unasyn will discontinue an d broaden antibiotics to vancomycin and zosyn Leukocytosis - likely secondary to above - continue antibiotics and monitor for improvem ent unintentional weight loss - possibly secondary lung disease, workup in pr ogress abdominal pain /right upper quadrant pain - CTA reviewed - may benefit from CTAP - pulmonary following accelerated hypertension - not currently receiving any BP medications - defer to Internal Medicine protein calorie malnutrition -albumin 3.1 on admission -continue to encouraged increased p.o. nutritio n and monitor for improvement Rib cage pain/pain under right axilla -Patient may benefit from pain managemen t, continue current medication regimen per IM Consultants: infectious disease Electronically Signed by Sondra Stephens MD on 02/22 07/14 at 0029 RPT #:[id number] END OF REPORT 2022-03-01 16:47:00-00:00 [facility] ([facility]) Pulmonology Progress Note REPORT#:[id number] REPORT STATUS: Signed DATE:03/01/22 TIME: 1646 PATIENT: CINDY SINGH UNIT #: [id number] ROOM/BED: [place] [address] : 60 AGE: 61 SEX: M ATTEND: May Le MD ADM AUTHOR: Porfirio Cool MD * ALL edits or amendments must be made on the [employer] document * Subjective Chief complaint: chest pain somewhat better, cough productive of blood-tinged, purulent sputum Patient reports: Yes: ambulating, chest pain, congestion, cough, coughing blood, feeling better, pain, pain controlled, resting comfortably, shor tness of breath, sputum, tolerating diet. No: wheezing. Comments: Patient seen and examined. Discussed with nurse at bedside. He reports sputum blood-tinged or willard today, a nd says it tastes "coppery." Objective General VS/I O: Last Documented: Result Date Time Pulse Ox 97 03/01 1513 B/P 116/74 03/01 1513 B/P Mean 87.6 03/01 151 O2 Delivery Room air 03/01 1513 Temp 98.2 03/01 1513 Pulse 62 03/01 1513 Resp 18 03/01 1513 O2 Flow Rate 5 02/27 0126 24 hour I O ending at 0700: 02/28 1900 03/01 0700 Intake Total 240 Output Total Balance 240 Intake, Oral 240 PATIENT WEIGHT: Weight (lb): Weight (oz): Weight (kg): 70.000 Physical Exam General appearance: chronically ill appearing, r espiratory support (Yankauer suction cath in bed) Head/eyes: atraumatic, normocephalic, PERRL, EOM I, normal conjunctiva/sclera ENT: ENT: moist mucosal membranes, caries, poor dent ition Neck: no JVD, no lymphadenopathy Cardiovascular: normal S1/S2, regular rate rhyth m, no murmur, no rub Respiratory/chest: decreased breath soun ds (bases), rales, tenderness (marked, right lateral chest) Abdomen: soft, non-tender, normal bowel sounds, no distention, no mass/ organomegaly Genitourinary: no urinary catheter Extremities: moves all, no clubbing, no cyanosis , no edema Musculoskeletal: muscle atrophy Neuro/DRIP BOX TENDER: CNII-XII intact, no motor deficits Lymphatics: neck normal, no lymphadenopathy Psychiatry: normal affect, n ormal judgment/insight, normal mood, not homicidal, not suicidal Results Findings/Data: Laboratory Tests 02/28 1739 Toxicology Vancomycin Trough (10 - 20 mcg/mL) 9.0 L Results: labs reviewed, vital signs reviewed, vi krystle signs stable, current med profile rev'd Treatment Prophylaxis Treatment Prophylaxis Oxygen: room air (SpO2 96%), simple mask (PRN) Anti-infectives: piperacillin-tazobactam, vancom ycin Sedation: morphine Diagnosis, Assessment Plan Free Text A P: 1. Cavitary Lung Lesion -with mild leukocytosis, low grade fever, chills /sweats, pleuritic chest pain without hilar or mediastinal lymphadenopathy. Sm all ipsilateral effusion. Few small bilateral calcified granulomas. -Airborne Isolation for now -Bronchial washing culture growing only alpha st rep and micrococcus, probably normal cassidy. Fungal AFB cultures are pending. A FB smears are pending. Fungal smears negative. -TB being ruled out with sputum and bronchial wa shing AFB smears. I believe this is more likely a lung abscess or malignancy -Empiric antibiotics are being managed by ID. -Follow-up chest x-ray did not show substantial improvement. 2. Pleuritic Chest Pain -Symptomatic pain control -A little more improvement w ith treatment so far, according to patient history. -Pleuritic character. 3. Unintentional weight loss -Likely due to lung process above -Workup in progress 4. Abdominal Discomfort -Improved. Possibly contributing to wt loss? -No recent BM per pt. will start Senokot S 5. Hypertension -Have gently reduced BP meds Continue antibiotics. Continue mucolytics. Await AFB smears. If these are negative, and symptoms are no better, then will probably proceed to needle biopsy. Sent email to [facility] lab to ask if AFB smears can be expedited. Consultants: infectious disease at 1657 RPT #:[id number] END OF REPORT 2022-03-01 16:36:00-00:00 [facility] ([facility]) Pharmacy Prog.Note-Vancomycin REPORT#:[id number] REPORT STATUS: Signed DATE:03/01/22 TIME: 1636 PATIENT: CINDY SINGH UNIT #: [id number] ROOM/BED: [place] [address] : 60 AGE: 61 SEX: M ATTEND: May Le MD ADM AUTHOR: Essence Whitley [facility] * ALL edits or amendments must be made on the el [employer]/computer document * Vancomycin Vancomycin Medication Therapy Goal: trough 15-20 mcg/mL Indication for treatment: lung lesion Current therapy: vancomycin 1gm iv q 12 hr Weight: Actual weight (kg): 70 Labs: Laboratory Tests: 02/28 1739 Toxicology Vancomycin Trough (10 - 20 mcg/mL) 9.0 L Microbiology: 02/28 160 SPUTUM: Sputum Culture - RES 02/28 160 SPUTUM: Gram Stain - RES Treatment plan: consult, change regimen Additional Comments: Patient is a 61-year-old male past med ical history significant for hypertension admitted to [facility] ED with a chief complaint of productive cough with blood in sput um and 12 lb weight loss over the last 3 weeks. Patient al so reported right-sided chest pain under his axilla and feels as if something may be wrong with his ribcage. Patient was noted to have mild hypertension with a blood pres sure of 160/82. Patient was also noted to have leukocytosis with a WBC of 14.3, hemoglo bin 11.6, hematocrit 35.9, platelets 379. urine drug sc reen recs reviewed and noted to be only positive for opiates. Patient was negative for COVID-19. UA w as performed and appears negative. Chest x-ray was performed showing a de nse opacity within the right mid to lower lung zone measuring at least 6 cm b elieved to be a large consolidation or mass with radiology recommendin g CT. Patient's CT was also reviewed showing Large 5.6 x 4.2 cm thick-walled cavitary lesion. Differentialdiagnosis includes fungal infection (including TB) or malignancy. TB should be considered the primary diagnosis un til proven otherwise. patient was admitted for cavitary lung lesion with plans for bronchoscopy and TB rule out. Thank you Dr. Page herrera this kind consultation we will continue to follow the patient closely with you. Pharmacy consulted for vancomycin dosing Assessment/Plan pt initiated on vancomycin 1gm iv q 12 hr for evon ng lesion vancomycin trough subtherapeutic renal function appears stable dose increased to vancomycin 1250mg iv q 12 hr adjust dose as needed to maintain trough 15-20 Thanks for the consultation Electronically Signed by Essence Whitley [facility] on 0 03/01/22 at 1639 RPT #:[id number] END OF REPORT 2022-03-01 14:40:00-00:00 [facility] Hospitalist Progress Note REPORT#:[id number] REPORT STATUS: Signed DATE:03/01/22 TIME: 1440 PATIENT: CINDY SINGH UNIT #: [id number] ROOM/BED: [facility] : 60 AGE: 61 SEX: M ATTEND: May Le MD ADM AUTHOR: Merlyn Le MD * ALL edits or amendments must be made on the [employer]/computer document * Subjective Chief complaint: Coughing, VEGA Eating better ROS negative except for above Objective General VS/I O: Vital Signs: Date Time Temp Pulse Resp B/P B/P Pulse O2 O2 F low FiO2 Mean Ox Delivery Rate 03/01 1058 37.3 59 18 102/63 75.9 94 Room air 03/01 0641 36.9 53 20 117/70 85.4 96 Room air 02/28 2300 36.7 58 22 133/83 99.7 97 Room air 02/28 1908 36.7 62 16 115/73 86.8 99 24 hour I O ending at 0700: 02/28 1900 03/01 0700 Intake Total 240 Output Total Balance 240 Intake, Oral 240 PATIENT WEIGHT: Weight (lb): Weight (oz): Weight (kg): 70.000 Physical Exam General appearance: cachecti c/emaciated, chronically ill appearing, alert, awake , oriented Head/Eyes: atraumatic, clear cornea, EOMI, zeynep l conjunctiva/sclera, normal eyelids/periorb., normocephalic, PERRL ENT: normal dentition, normal ear left, normal e ar right, normal nose, normal pharynx, normal sinus Neck: full range of motion, non-tender, normal thyroid, supple/no meningismus, no bruit/NL carotids, no JVD, no masses or swell ing Cardiovascular: normal capillary refill, normal heart sounds Respiratory: chest wall tenderness, decreased br eath sounds, clear to auscultation, no distress Abdomen: non-tender, normal bowel sounds , soft, no distention, no guarding, no hernia, no mass/organomegaly, no rebound Extremities: moves all, normal capillary refill, normal range of motion, no edema Musculoskeletal: normal inspection, painless ran ge of motion Skin: dry, intact Lymphatics: axilla normal, inguinal normal, neck normal, no lymphadenopathy Results Findings/Data: Laboratory Tests 02/28 1739 Toxicology Vancomycin Trough (10 - 20 mcg/mL) 9.0 L Diagnosis, Assessment Plan Consultants: infectious disease Free Text DxA P Notes Free text DxA P notes: Cavitary lesion of lung large 5.6 x 4.2 cm thick-walled cavitary lesion IGRA TB pending /isolation airborne ID following IV antibiotics : Vancomycin/Zosyn Status post bronc, culture with alpha strep and micrococcus Fungal Gram stain negative Sputum culture negative May need biopsy if persistent despite antibiotic s Hypertension Low normal, DC lisinopril if persistently low Depression On Zoloft Electronically Signed by Merlyn Le MD on at 1443 RPT #:[id number] END OF REPORT 2022-02-28 19:30:00-00:00 [facility] ([facility]) Pulmonology Progress Note REPORT#:[id number] REPORT STATUS: Signed DATE:02/28/22 TIME: 1929 PATIENT: CINDY SINGH UNIT #: [id number] ROOM/BED: [place] [address] : 60 AGE: 61 SEX: M ATTEND: May Le MD ADM AUTHOR: Porfirio Cool MD * ALL edits or amendments must be made on the [employer]/computer document * Subjective Chief complaint: chest pain, cough Patient reports: Yes: ambulating, chest pain, congestion, cough, feeling better, pain, pain controlled, resting comfortably, shortness of br eath (better), sputum, tolerating diet. No: coughing blood, wheezing. Comments: Patient seen and examined. He is sitting on the edge of the bed is breathin g comfortably on room air. He believes he is able to inspire more deeply wi thout significant pain, but still has pain with cough. Objective General VS/I O: Last Documented: Result Date Time Pulse Ox 99 02/29 1908 B/P 115/73 02/29 1908 B/P Mean 86.8 02/29 1908 Temp 98.1 02/29 1908 Pulse 62 02/29 1908 Resp 16 02/29 1908 O2 Delivery Room air 02/27 1430 O2 Flow Rate 5 02/27 0126 PATIENT WEIGHT: Weight (lb): Weight (oz): Weight (kg): 70.000 Physical Exam General appearance: chronically ill appe aring, alert, awake, no acute distress Head/eyes: atraumatic, normocephalic, PERRL, EOM I, normal conjunctiva/sclera ENT: ENT: moist mucosal membranes, caries, poor dent ition Neck: no JVD, no lymphadenopathy Cardiovascular: normal S1/S2, regular rate rhyth m, no murmur, no rub Respiratory/chest: decreased breath soun ds (right), rales, tenderness (marked, right lateral chest) Abdomen: soft, non-tender, normal bowel sounds, no distention, no mass/ organomegaly Genitourinary: no urinary catheter Extremities: moves all, no clubbing, no cyanosis , no edema Musculoskeletal: muscle atrophy Neuro/DRIP BOX TENDER: CNII-XII intact, no motor deficits Lymphatics: neck normal, no lymphadenopathy Psychiatry: normal affect, n ormal judgment/insight, normal mood, not homicidal, not suicidal Results Findings/Data: Laboratory Tests 02/28/22 05: [Embedded Image Not Available] Laboratory Tests 02/28 530 Chemistry Sodium (134.0 - 147.0 mmol/l) 134 Potassium (3.6 - 5.2 mmol/L) 4.1 Chloride (98.0 - 107.0 mmol/l) 101 Carbon Dioxide (21.0 - 33.0 mmol/l) 24.1 Anion Gap (0 - 20) 13.0 BUN (7.0 - 18.0 mg/dl) 11 Creatinine (0.60 - 1.30 mg/dL) 0.89 Est GFR ( Amer) (97 - 109 mL/min) 112 H Est GFR (Non-Af Amer) (80 - 90 mL/min) 92 H Glucose (70.0 - 110.0 mg/dl) 96 Calcium (8.0 - 10.5 mg/dl) 8.8 Magnesium (1.8 - 2.4 mg/dl) 2.1 Total Bilirubin (0.0 - 1.0 mg/dl) 0.3 AST (15 - 37 Units/L) 21 ALT (12.0 - 78.0 Units/L) 32 Total Alk Phosphatase (50.0 - 136.0 Units/L) 59 Total Protein (6.0 - 8.1 GM/DL) 6.8 Albumin (3.2 - 4.7 gm/dL) 2.4 L Laboratory Tests 02/28 1739 Toxicology Vancomycin Trough (10 - 20 mcg/mL) 9.0 L Radiology data: Recent Impressions: RADIOLOGY - XR CHEST 1 V 02/28 0652 Report Impression - Status: SIGNED Entered: 02/28/2022 4342 IMPRESSION: Ill-defined airspace opacities noted throughout the right mid and lower lung, which is worsened from prior and obs cures previously noted consolidation. Suspect trace bilateral pleural e ffusions. Impression By: [email or web address] - Khadar Epperson M.D. Results: labs reviewed, vital signs reviewed, vi krystle signs stable, x-ray personally reviewed, current med profile rev'd Treatment Prophylaxis Treatment Prophylaxis Oxygen: room air (SpO2 95%), simple mask (PRN) Anti-infectives: piperacillin-tazobactam, vancom ycin Sedation: morphine Diagnosis, Assessment Plan Free Text A P: 1. Cavitary Lung Lesion -with mild leukocytosis, low grade fever, chills /sweats, pleuritic chest pain without hilar or mediastinal lymphadenopathy. Sm all ipsilateral effusion. Few small bilateral calcified granulomas. -Airborne Isolation for now -Bronchial washing culture growing only alpha st rep and micrococcus, probably normal cassidy. Fungal AFB cultures are pending. A FB smears are pending. Fungal smears negative. -TB being ruled out with sputum and bronchial wa shing AFB smears. I believe this is more likely a lung abscess or malignancy -Empiric antibiotics are being managed by ID. -Follow-up chest x-ray did not show substantial improvement. 2. Pleuritic Chest Pain -Symptomatic pain control -A little improvement with treatment so far, acc ording to patient history. -Likely Pleuritic 3. Unintentional weight loss -Likely due to lung process above -Workup in progress 4. Abdominal Discomfort -Etiology? Possibly contributing to wt loss? -No recent BM per pt. -CTA Chest shows very small portion of abd but t here is some distended bowel loops seen. 5. Hypertension -Can probably reduce BP meds Continue antibiotics. Continue mucolytics. Await AFB smears. If these are negative, and symptoms are no better, then will probably proceed to needle biopsy. Consultants: infectious disease at 1940 RPT #:[id number] END OF REPORT 2022-02-28 16:18:00-00:00 [facility] ([facility]) Infectious Dis. Progress Note REPORT#:[id number] REPORT STATUS: Signed DATE:02/28/22 TIME: 1618 PATIENT: CINDY SINGH UNIT #: [id number] ROOM/BED: [place] [address] : 60 AGE: 61 SEX: M ATTEND: May Le MD ADM AUTHOR: Esteban Shaver Jr APRNNP * ALL edits or amendments must be made on the [employer]/computer document * Subjective Chief complaint: shortness of breath, rib cage pain patient seen and examined chart reviewed and acu te events noted. Patient reports: Yes: complaints, pain. No: feeling better. Nursing reports: Yes: complaints. Objective General VS/I O: Last Documented: Result Date Time Pulse Ox 95 / 1107 B/P 103/63 02/28 1107 B/P Mean 76.4 02/28 1107 Pulse 61 / 1107 Resp 14 02/28 1107 Temp 36.7 02/27 2222 O2 Delivery Room air 02/27 1430 O2 Flow Rate 5 02/27 0126 Vital Signs Date Temp Pulse Resp B/P B/P Mean Pulse Ox FiO 2 02/27-02/28 36.7-36.8 52-63 14-26 103-123/63-71 76.4-88.0 95-100 PATIENT WEIGHT: Weight (lb): Weight (oz): Weight (kg): 70.000 Medications: Active Meds + DC'd Last 24 Hrs Vancomycin HCl (VANCOMYCIN 1,000 MG VIAL) 1,000 MG Q12H IV Sodium Chloride (SODIUM CHLORIDE 0.9%) 250 ML Piperacillin Sod/Tazobactam Sod (ZOSYN 3.375 GM VIAL) 3.375 GM Q8H IV Sodium Chloride (SODIUM CHLORIDE 0.9% 100 ML) 1 00 ML Miscellaneous Information (VANCOMYCIN PHARMACY T O DOSE) 1 EACH ASDIR IV (CKD) Morphine Sulfate (morphine SULFATE) 4 MG Q4H PRN PRN IV Guaifenesin (MUCINEX ER) 600 MG Q12HR PO Lactobacillus Acidophilus (BACID) 2 CAP BID PO Multivitamins/Minerals Therapeutic (THERAPEUTIC VITAMIN W MINERALS) 1 TAB DAILY PO Sertraline HCl (ZOLOFT) 50 MG DAILY PO Lisinopril (PRINIVIL OR ZESTRIL) 10 MG DAILY PO Antibiotic start date: Antibiotic: Start Date: Antibiotic: Start Date: Antibiotic: Start Date: Nutrition assessment: The data set between the solid lines has been im ported from the dietitian's assessment. Any exceptions have been noted under Provider comments. BMI Calculated: 22.8 Nutrition related diagnosis: Nutrition diagnosis details: Nutrition problem: Nutrition etiology: Nutrition signs and symptoms: Nutrition prescription: Dietitian name: Assessment completed: Provider comments on imported dietitian assessme nt: Physical Exam General appearance: alert, awake, oriented Head/Eyes: clear cornea, EOMI Cardiovascular: normal heart sounds, regular rat e rhythm Respiratory: decreased breath sounds Abdomen: non-tender, normal bowel sounds Extremities: moves all, normal capillary refill Musculoskeletal: full range of motion Neuro/DRIP BOX TENDER: alert, CNII-XII intact, normal speech Diagnosis, Assessment Plan Free Text A P: Cavitary lesions - seen on CT - pulmonary following, status post bronchoscopy - rule out TB, await culture results - patient started on Unasyn will discontinue an d broaden antibiotics to vancomycin and zosyn Leukocytosis - likely secondary to above - continue antibiotics and monitor for improvem ent unintentional weight loss - possibly secondary lung disease, workup in pr ogress abdominal pain /right upper quadrant pain - CTA reviewed - may benefit from CTAP - pulmonary following accelerated hypertension - not currently receiving any BP medications - defer to Internal Medicine protein calorie malnutrition -albumin 3.1 on admission -continue to encouraged increased p.o. nutritio n and monitor for improvement Rib cage pain/pain under right axilla -Patient may benefit from pain managemen t, continue current medication regimen per IM Consultants: infectious disease Plan discussed with: patient, nurse at 1621 RPT #:[id number] END OF REPORT 2022-02-28 13:12:00-00:00 [facility] Progress Note REPORT#:[id number] REPORT STATUS: Signed DATE:02/28/22 TIME: 1312 PATIENT: CINDY SINGH UNIT #: [id number] ROOM/BED: [place] [address] : 60 AGE: 61 SEX: M ATTEND: May Le MD ADM AUTHOR: Eve Vaughan MD * ALL edits or amendments must be made on the [employer]/computer document * Subjective Chief complaint: still in pain, needs iv pain meds no cough food tastes bad afebrile on room air 14 point ROS negative unless stated Objective General VS/I O: Vital Signs: Date Time Temp Pulse Resp B/P B/P Pulse O2 O2 F low FiO2 Mean Ox Delivery Rate 02/28 1107 61 14 103/63 76.4 95 02/28 0736 52 14 123/71 88.0 98 02/27 2222 36.7 57 26 103/71 81.7 99 02/27 1907 36.8 63 16 106/65 78.2 100 02/27 1430 95 Room air 02/27 1343 36.9 64 18 108/60 75.9 95 Room air PATIENT WEIGHT: Weight (lb): Weight (oz): Weight (kg): 70.000 Medications: Active Meds + DC'd Last 24 Hrs Vancomycin HCl (VANCOMYCIN 1,000 MG VIAL) 1,000 MG Q12H IV Sodium Chloride (SODIUM CHLORIDE 0.9%) 250 ML Piperacillin Sod/Tazobactam Sod (ZOSYN 3.375 GM VIAL) 3.375 GM Q8H IV Sodium Chloride (SODIUM CHLORIDE 0.9% 100 ML) 1 00 ML Miscellaneous Information (VANCOMYCIN PHARMACY T O DOSE) 1 EACH ASDIR IV (CKD) Morphine Sulfate (morphine SULFATE) 4 MG Q4H PRN PRN IV Guaifenesin (MUCINEX ER) 600 MG Q12HR PO Lactobacillus Acidophilus (BACID) 2 CAP BID PO Multivitamins/Minerals Therapeutic (THERAPEUTIC VITAMIN W MINERALS) 1 TAB DAILY PO Sertraline HCl (ZOLOFT) 50 MG DAILY PO Lisinopril (PRINIVIL OR ZESTRIL) 10 MG DAILY PO Nutrition assessment: The data set between the solid lines has been im ported from the dietitian's assessment. Any exceptions have been noted under Provider comments. BMI Calculated: 22.8 Nutrition related diagnosis: Nutrition diagnosis details: Nutrition problem: Nutrition etiology: Nutrition signs and symptoms: Nutrition prescription: Dietitian name: Assessment completed: Provider comments on imported dietitian assessme nt: Physical Exam General appearance: alert, awake, oriented Head/Eyes: atraumatic, clear cornea, EOMI, zeynep l conjunctiva/sclera, normal eyelids/periorb., normocephalic, PERRL ENT: normal dentition, normal ear left, normal e ar right, normal nose, normal pharynx, normal sinus Neck: full range of motion, non-tender, normal thyroid, supple/no meningismus, no bruit/NL carotids, no JVD, no masses or swell ing Cardiovascular: normal capillary refill, normal heart sounds Respiratory: chest wall tenderness, decreased br eath sounds, clear to auscultation, no distress Abdomen: non-tender, normal bowel sounds , soft, no distention, no guarding, no hernia, no mass/organomegaly, no rebound Extremities: moves all, normal capillary refill, normal range of motion, no edema Musculoskeletal: normal inspection, painless ran ge of motion Skin: dry, intact Lymphatics: axilla normal, inguinal normal, neck normal, no lymphadenopathy Results Findings/Data: Laboratory Tests 02/28 05 Chemistry Sodium (134.0 - 147.0 mmol/l) 134 Potassium (3.6 - 5.2 mmol/L) 4.1 Chloride (98.0 - 107.0 mmol/l) 101 Carbon Dioxide (21.0 - 33.0 mmol/l) 24.1 Anion Gap (0 - 20) 13.0 BUN (7.0 - 18.0 mg/dl) 11 Creatinine (0.60 - 1.30 mg/dL) 0.89 Est GFR ( Amer) (97 - 109 mL/min) 112 H Est GFR (Non-Af Amer) (80 - 90 mL/min) 92 H Glucose (70.0 - 110.0 mg/dl) 96 Calcium (8.0 - 10.5 mg/dl) 8.8 Magnesium (1.8 - 2.4 mg/dl) 2.1 Total Bilirubin (0.0 - 1.0 mg/dl) 0.3 AST (15 - 37 Units/L) 21 ALT (12.0 - 78.0 Units/L) 32 Total Alk Phosphatase (50.0 - 136.0 Units/L) 59 Total Protein (6.0 - 8.1 GM/DL) 6.8 Albumin (3.2 - 4.7 gm/dL) 2.4 L Radiology data: Recent Impressions: RADIOLOGY - XR CHEST 1 V 02/28 0652 Report Impression - Status: SIGNED Entered: 02/28/2022 3257 IMPRESSION: Ill-defined airspace opacities noted throughout the right mid and lower lung, which is worsened from prior and obs cures previously noted consolidation. Suspect trace bilateral pleural e ffusions. Impression By: [email or web address] Fallon Epperson M.D. Diagnosis, Assessment Plan Consultants: infectious disease Free Text DxA P Notes Free text DxA P notes: 1. Cavitary Lung Lesion Tb rule out ID consult pulm following symptomatic pain control 2. Accelerated HTN start lisinopril iv prn 3. Weight loss due to above increase po intake 02/[address] Cool and discussed resu lts, likely abscess, follow culture wean o2 abx and change per results 02/28 continue to monitor culture results dc planningwith pulm Electronically Signed by Eve Vaughan MD on at 1313 RPT #:[id number] END OF REPORT 2022-02-27 18:39:00-00:00 [facility] ([facility] Pulmonology Progress Note REPORT#:[id number] REPORT STATUS: Signed DATE:02/27/22 TIME: 1838 PATIENT: CINDY SINGH UNIT #: [id number] ROOM/BED: [place] [address] : 60 AGE: 61 SEX: M ATTEND: May Le MD ADM AUTHOR: Porfirio Cool MD * ALL edits or amendments must be made on the [employer]/computer document * Subjective Chief complaint: chest pain, cough HPI: Pt is a 61yo male with HTN presenting to [facility] ED with SOB Chest pain. He reports one week h/o worsening SOB cough / URI s ymptoms. Associated symptoms include: productive cough (s putum thick and green, denies blood but had coughed up large amounts of purulent sputum while I was in room and it does appear to possibly have a very slight pink streak mixed in ), 12lb weight loss over the past month due to decreased appetite and food av ersion / does not taste well, fevers, chills, symptoms worse at night. He is p resenting now due to onset of atypical R sided chest pain under his axilla, chest pain seems positional, worse with inspiration and movement. Patient reports he lost his a few m onths ago and is now living in a correction. History is difficult to obtain as patient is in discomfort and not the best historian. He says there is someone who wor ks at the correction who has been coughing and having similar symptoms to him . When asked how he knew her symptoms were similar he stated he overheard her telling another worker her symptoms are "really just bad at night b ut during the day she feels better and just has this cough". To note, patient has a h/o depression with suicidal ideation, ED note reviewed. On arrival to ED pt with BP 187/98, HR 74, RR 20, SpO2 100% on room air, 37.7 C temp. Labs show leukoytosis, eleva juan jose inr at 1.2, Opiods on UTox, CT chest shows large 5.6 x 4.2 cm thick-walled cavitary lesion. Patient reports: Yes: chest pain (still severe), congestion, coug h, pain, shortness of breath, sputum, tolerating diet. No: coughing blood, fee ling better, pain controlled, resting comfortably, wheezing. Comments: Patient seen and examined. He reports chest pain in the right upper lateral chest is unimproved. Cough often productive of sputum. Eating well. Objective General VS/I O: Last Documented: Result Date Time Pulse Ox 95 02/27 1430 O2 Delivery Room air 02/27 1430 B/P 108/60 02/27 1343 B/P Mean 75.9 02/27 1343 Temp 98.4 02/27 1343 Pulse 64 02/27 1343 Resp 18 02/27 1343 O2 Flow Rate 5 02/27 0126 24 hour I O ending at 0700: 02/26 1900 02/27 0700 Intake Total 20.00 350.00 Output Total Balance 20.00 350.00 Intake, IV 20.00 350.00 PATIENT WEIGHT: Weight (lb): Weight (oz): Weight (kg): 70.000 Physical Exam General appearance: chronically ill appearing, a lert, awake Head/eyes: atraumatic, normocephalic, PERRL, EOM I, normal conjunctiva/sclera ENT: ENT: moist mucosal membranes, caries, poor dent ition Neck: no JVD, no lymphadenopathy Cardiovascular: normal S1/S2, regular rate rhyth m, no murmur, no rub Respiratory/chest: decreased breath soun ds (right > left), rales, tenderness ( marked, right lateral chest) Abdomen: soft, non-tender, normal bowel sounds, no distention, no mass/ organomegaly Genitourinary: no urinary catheter Extremities: moves all, no clubbing, no cyanosis , no edema Musculoskeletal: muscle atrophy Neuro/DRIP BOX TENDER: CNII-XII intact, no motor deficits Lymphatics: neck normal, no lymphadenopathy Psychiatry: normal affect, n ormal judgment/insight, normal mood, not homicidal, not suicidal Results Results: no new labs, vital signs reviewed, karen l signs stable, current med profile rev'd Treatment Prophylaxis Treatment Prophylaxis Oxygen: room air (SpO2 95%), simple mask Anti-infectives: piperacillin-tazobactam, vancom ycin Sedation: morphine Diagnosis, Assessment Plan Free Text A P: 1. Cavitary Lung Lesion -with mild leukocytosis, low grade fever, chills /sweats, pleuritic chest pain without hilar or mediastinal lymphadenopathy. Sm all ipsilateral effusion. Few small bilateral calcified granulomas. -Airborne Isolation for now -Bronchial washing culture growing only alpha st rep, probably normal cassidy. Fungal AFB cultures are pending. AFB smears are pending. Fungal smears negative. -TB rule out vs more likely abscess or malignanc y -Empiric abx -Follow-up chest x-ray tomorrow 2. Pleuritic Chest Pain -Symptomatic pain control -No significant improvement with treatment so far, according to patient history. -Likely Pleuritic 3. Unintentional weight loss -Likely due to lung process above -Workup in progress 4. Abdominal Discomfort -Etiology? Possibly contributing to wt loss? -No recent BM per pt. -CTA Chest shows very small portion of abd but t here is some distended bowel loops seen. -May need to check CTAP 5. Hypertension -Optimize BP meds Continue antibiotics. Agree with changes ordered by ID. Continue mucolytics. Await AFB smears. If these are negative, and symptoms are no better, then will probably proceed to needle biopsy. Consultants: infectious disease at 1851 RPT #:[id number] END OF REPORT 2022-02-27 16:49:00-00:00 [facility] ([facility]) Infectious Dis. Progress Note REPORT#:[id number] REPORT STATUS: Signed DATE:02/27/22 TIME: 1648 PATIENT: CINDY SINGH UNIT #: [id number] ROOM/BED: [place] [address] : 60 AGE: 61 SEX: M ATTEND: May Le MD ADM AUTHOR: Esteban Shaver JrP * ALL edits or amendments must be made on the [employer]/computer document * Subjective Chief complaint: shortness of breath, rib cage pain patient seen and examined chart reviewed and acu te events noted. Patient sitting on edge of bed continues to endorse rib pain underneath right axilla Patient reports: Yes: complaints, pain. Nursing reports: Yes: complaints. Review of Systems All systems rev neg: except as marked Objective General VS/I O: Last Documented: Result Date Time Pulse Ox 95 02/27 1430 O2 Delivery Room air 02/27 1430 B/P 108/60 02/27 1343 B/P Mean 75.9 02/27 1343 Temp 36.9 02/27 1343 Pulse 64 02/27 1343 Resp 18 02/27 1343 O2 Flow Rate 5 02/27 0126 Vital Signs Date Temp Pulse Resp B/P B/P Mean Pulse Ox FiO2 /-02/27 36.7-37.2 61-68 18-19 103-126/60-85 75.9-99.0 95-100 24 hour I O ending at 0700: 02/27 0700 / 1900 Intake Total 350.00 20.00 Output Total Balance 350.00 20.00 Intake, IV 350.00 20.00 PATIENT WEIGHT: Weight (lb): Weight (oz): Weight (kg): 70.000 Medications: Active Meds + DC'd Last 24 Hrs Vancomycin HCl (VANCOMYCIN 1,000 MG VIAL) 1,000 MG Q12H IV Sodium Chloride (SODIUM CHLORIDE 0.9%) 250 ML Piperacillin Sod/Tazobactam Sod (ZOSYN 3.375 GM VIAL) 3.375 GM Q8H IV Sodium Chloride (SODIUM CHLORIDE 0.9% 100 ML) 1 00 ML Miscellaneous Information (VANCOMYCIN PHARMACY T O DOSE) 1 EACH ASDIR IV (CKD) Morphine Sulfate (morphine SULFATE) 4 MG Q4H PRN PRN IV Guaifenesin (MUCINEX ER) 600 MG Q12HR PO Lactobacillus Acidophilus (BACID) 2 CAP BID PO Multivitamins/Minerals Therapeutic (THERAPEUTIC VITAMIN W MINERALS) 1 TAB DAILY PO Sertraline HCl (ZOLOFT) 50 MG DAILY PO Lisinopril (PRINIVIL OR ZESTRIL) 10 MG DAILY PO Antibiotic start date: Antibiotic: Start Date: Antibiotic: Start Date: Antibiotic: Start Date: Nutrition assessment: The data set between the solid lines has been im ported from the dietitian's assessment. Any exceptions have been noted under Provider comments. BMI Calculated: 22.8 Nutrition related diagnosis: Nutrition diagnosis details: Nutrition problem: Nutrition etiology: Nutrition signs and symptoms: Nutrition prescription: Dietitian name: Assessment completed: Provider comments on imported dietitian assessme nt: Physical Exam General appearance: alert, awake, oriented Head/Eyes: clear cornea, EOMI Cardiovascular: normal heart sounds, regular rat e rhythm Respiratory: decreased breath sounds Abdomen: non-tender, normal bowel sounds Extremities: moves all, normal capillary refill Musculoskeletal: full range of motion Neuro/DRIP BOX TENDER: alert, CNII-XII intact, normal speech Results Results: labs reviewed, vital signs reviewed Diagnosis, Assessment Plan Free Text A P: Cavitary lesions - seen on CT - pulmonary consulted with plans for bronchosco py - rule out TB - patient started on Unasyn will discontinue an d broaden antibiotics to vancomycin and zosyn Leukocytosis - likely secondary to above - continue antibiotics and monitor for improvem ent unintentional weight loss - possibly secondary lung disease, workup in pr ogress abdominal pain /right upper quadrant pain - CTA reviewed - may benefit from CTAP - pulmonary following accelerated hypertension - not currently receiving any BP medications - defer to Internal Medicine protein calorie malnutrition -albumin 3.1 on admission -continue to encouraged increased p.o. nutritio n and monitor for improvement Rib cage pain/pain under right axilla -Patient may benefit from pain managemen t, continue current medication regimen per IM Consultants: infectious disease Plan discussed with: patient, nurse Time spent: Time spent on patient care (minutes): 45 >50% spent on counseling/coordination of care: yes at 1651 RPT #:[id number] END OF REPORT 2022-02-27 16:28:00-00:00 [facility] ([facility]) Pharmacy Prog.Note-Vancomycin REPORT#:[id number] REPORT STATUS: Signed DATE:02/27/22 TIME: 1628 PATIENT: CINDY SINGH UNIT #: [id number] ROOM/BED: [place] [address] : 60 AGE: 61 SEX: M ATTEND: May Le MD ADM AUTHOR: Essence Whitley [facility] * ALL edits or amendments must be made on the [employer]/computer document * See Addendum Vancomycin Vancomycin Medication Therapy Goal: trough 15-20 mcg/mL Indication for treatment: lung lesion Current therapy: vancomycin 1gm iv q 12 hr Weight: Actual weight (kg): 70 Labs: Microbiology: 02/26 103 LUNG: Acid Fast Bacilli Culture - REC D 02/26 1030 BRON WASH: Acid Fast Bacilli Culture - RECD 02/26 1030 BRON WASH: Fungal Smear - RES 02/26 1030 BRON WASH: Fungal Culture - RES 02/26 1030 BRONCH LAV: Fungal Smear - RES 02/26 1030 BRONCH LAV: Fungal Culture - RES 02/26 1030 BRON WASH: Bronchial Washings Culture - RES 02/26 1030 BRON WASH: Gram Stain - RES 02/25 0833 ASPIRATE: Acid Fast Bacilli Culture - RECD 02/24 2242 NASOPHARG: Influenza Virus Type B Ant igen - COMP 02/24 2242 NASOPHARG: Influenza Virus Type A Ant igen - COMP Treatment plan: consult, cont current regimen/do se Additional Comments: HPI: Patient is a 61-year-old male past med ical history significant for hypertension admitted to [facility] ED with a chief complaint of productive cough with blood in sput um and 12 lb weight loss over the last 3 weeks. Patient al so reported right-sided chest pain under his axilla and feels as if something may be wrong with his ribcage. Patient was noted to have mild hypertension with a blood pres sure of 160/82. Patient was also noted to have leukocytosis with a WBC of 14.3, hemoglo bin 11.6, hematocrit 35.9, platelets 379. urine drug sc reen recs reviewed and noted to be only positive for opiates. Patient was negative for COVID-19. UA w as performed and appears negative. Chest x-ray was performed showing a de nse opacity within the right mid to lower lung zone measuring at least 6 cm b elieved to be a large consolidation or mass with radiology recommendin g CT. Patient's CT was also reviewed showing Large 5.6 x 4.2 cm thick-walled cavitary lesion. Differentialdiagnosis includes fungal infection (including TB) or malignancy. TB should be considered the primary diagnosis un til proven otherwise. patient was admitted for cavitary lung lesion with plans for bronchoscopy and TB rule out. Thank you Dr. Page manzano r this kind consultation we will continue to follow the patient closely with you. Pharmacy consulted for vancomycin dosing Assessment/Plan pt initiated on vancomycin 1gm iv q 12 hr for evon ng lesion last srcr 02/23 continue current dosing srcr w/am labs trough prior to 4th dose 02/28@1730 adjust dose as needed to maintain trough 15-20 Thanks for the consultation Electronically Signed by Essence Whitley [facility] on 0 02/27/22 at 1630 Addendum 1: 02/27/22 1633 by Essence Whitley [facility] correction last srcr 02/24 Electronically Signed by Essence Whitley [facility] on 0 02/27/22 at 1633 RPT #:[id number] END OF REPORT 2022-02-27 15:32:00-00:00 [facility] ([facility]) Hospitalist Progress Note REPORT#:[id number] REPORT STATUS: Signed DATE:02/27/22 TIME: 1531 PATIENT: CINDY SINGH UNIT #: [id number] ROOM/BED: [place] [address] : 60 AGE: 61 SEX: M ATTEND: May Le MD ADM AUTHOR: Eve Vaughan MD * ALL edits or amendments must be made on the [employer] document * Subjective Chief complaint: patient still complaints of chest pain on the ri ght sore throat after bronch no chest pain on left no chest pressure 14 point ROS negative unless stated Objective General VS/I O: Vital Signs: Date Time Temp Pulse Resp B/P B/P Pulse O2 O2 F low FiO2 Mean Ox Delivery Rate 02/27 1430 95 Room air 02/27 1343 36.9 64 18 108/60 75.9 95 Room air 02/27 0752 36.7 61 19 107/73 84.4 96 02/27 0307 61 18 110/66 81.0 99 Non rebreather mask 02/27 0126 Simple 5 mask 02/26 2246 37.2 61 18 103/66 78.0 100 Non rebreather mask 02/26 1930 68 18 126/85 99.0 95 Room air 24 hour I O ending at 0700: 02/27 0700 02/26 1900 Intake Total 350.00 20.00 Output Total Balance 350.00 20.00 Intake, IV 350.00 20.00 PATIENT WEIGHT: Weight (lb): Weight (oz): Weight (kg): 70.000 Medications: Active Meds + DC'd Last 24 Hrs Vancomycin HCl (VANCOMYCIN 1,000 MG VIAL) 1,000 MG Q12H IV Sodium Chloride (SODIUM CHLORIDE 0.9%) 250 ML Piperacillin Sod/Tazobactam Sod (ZOSYN 3.375 GM VIAL) 3.375 GM Q8H IV Sodium Chloride (SODIUM CHLORIDE 0.9% 100 ML) 1 00 ML Miscellaneous Information (VANCOMYCIN PHARMACY T O DOSE) 1 EACH ASDIR IV (CKD) Morphine Sulfate (morphine SULFATE) 4 MG Q4H PRN PRN IV Guaifenesin (MUCINEX ER) 600 MG Q12HR PO Lactobacillus Acidophilus (BACID) 2 CAP BID PO Multivitamins/Minerals Therapeutic (THERAPEUTIC VITAMIN W MINERALS) 1 TAB DAILY PO Ampicillin Sodium/Sulbactam Sodium (UNASYN 3 GM VIAL) 3 GM Q6H IV (DC) Sodium Chloride (SODIUM CHLORIDE 0.9% 100 ML) 1 00 ML Sertraline HCl (ZOLOFT) 50 MG DAILY PO Lisinopril (PRINIVIL OR ZESTRIL) 10 MG DAILY PO Nutrition assessment: The data set between the solid lines has been im ported from the dietitian's assessment. Any exceptions have been noted under Provider comments. BMI Calculated: 22.8 Nutrition related diagnosis: Nutrition diagnosis details: Nutrition problem: Nutrition etiology: Nutrition signs and symptoms: Nutrition prescription: Dietitian name: Assessment completed: Provider comments on imported dietitian assessme nt: Physical Exam General appearance: alert, awake, oriented Head/Eyes: atraumatic, clear cornea, EOMI, zeynep l conjunctiva/sclera, normal eyelids/periorb., normocephalic, PERRL ENT: normal dentition, normal ear left, normal e ar right, normal nose, normal pharynx, normal sinus Neck: full range of motion, non-tender, normal thyroid, supple/no meningismus, no bruit/NL carotids, no JVD, no masses or swell ing Cardiovascular: normal capillary refill, normal heart sounds Respiratory: chest wall tenderness, decreased br eath sounds, clear to auscultation, no distress Abdomen: non-tender, normal bowel sounds , soft, no distention, no guarding, no hernia, no mass/organomegaly, no rebound Extremities: moves all, normal capillary refill, normal range of motion, no edema Musculoskeletal: normal inspection, painless ran ge of motion Skin: dry, intact Lymphatics: axilla normal, inguinal normal, neck normal, no lymphadenopathy Diagnosis, Assessment Plan Consultants: infectious disease Free Text DxA P Notes Free text DxA P notes: 1. Cavitary Lung Lesion Tb rule out ID consult pulm following symptomatic pain control 2. Accelerated HTN start lisinopril iv prn 3. Weight loss due to above increase po intake 02/[address] Cool and discussed resu lts, likely abscess, follow culture wean o2 abx and change per results Electronically Signed by Eve Vaughan MD on at 1533 RPT #:[id number] END OF REPORT 2022-02-26 16:06:00-00:00 [facility] ([facility]) Infect Disease Consult Note REPORT#:[id number] REPORT STATUS: Signed DATE:02/26/22 TIME: 160 PATIENT: CINDY SINGH UNIT #: [id number] ROOM/BED: [place] [address] : 60 AGE: 61 SEX: M ATTEND: May Le MD ADM AUTHOR: Esteban Shaver Jr APRNNP * ALL edits or amendments must be made on the [employer]/computer document * History of Present Illness Requesting Clinician: Dr. Vaughan Reason for consult: Infectious Disease/Antibiotic management Chief complaint: shortness of breath, rib cage pain patient seen and examined chart reviewe d and acute events noted. This patient lying in bed in preparation for bronchoscopy to be performed by Dr. Cool PCP: PCP: No Primary or Family Physician HPI: patient is a 61-year-old male past me dical history significant for hypertension admitted to [facility] ED for with a chief complaint of productive cough with blood in sput um and 12 lb weight loss over the last 3 weeks. Patient al so reported right-sided chest pain under his axilla and feels as if something may be wrong with his ribcage. Patient was noted to have mild hypertension with a blood pres sure of 160/82. Patient was also noted to have leukocytosis with a WBC of 14.3, hemoglo bin 11.6, hematocrit 35.9, platelets 379. urine drug sc reen recs reviewed and noted to be only positive for opiates. Patient was negative for COVID-19. UA w as performed and appears negative. Chest x-ray was performed showing a de nse opacity within the right mid to lower lung zone measuring at least 6 cm b elieved to be a large consolidation or mass with radiology recommendin g CT. Patient's CT was also reviewed showing Large 5.6 x 4.2 cm thick-walled cavitary lesion. Differentialdiagnosis includes fungal infection (including TB) or malignancy. TB should be considered the primary diagnosis un til proven otherwise. patient was admitted for cavitary lung lesion with plans for bronchoscopy and TB rule out. Thank you Dr. Page herrera this kind consultation we will continue to follow the patient closely with you. History - Adult longitudinal Additional medical history: Depression, kidney stone Additional surgical history: None Alcohol use: Alcohol use (occ.) Drug use: Cocaine, Marijuana Smoking status: Smoking status for patients 13 years old or old er: Never Smoker Allergies: Coded Allergies: Sulfa (Sulfonamide Antibioti cs) (SULFA(SULFONAMIDE ANTIBIOTICS)) (Mild, RASH 05/14) Review of Systems All systems rev neg: except as marked Objective General VS/I O: Last Documented: Result Date Time O2 Delivery Simple mask 02/26 1505 O2 Flow Rate 6 02/26 1505 Pulse Ox 95 / 1356 B/P 143/75 / 1356 B/P Mean 98.1 02/26 1356 Temp 37.0 / 1356 Pulse 67 04/ 1356 Resp 18 / 1356 Vital Signs Date Temp Pulse Resp B/P B/P Mean Pulse Ox FiO2 04/05-/06 37.0-37.6 62-77 17-41 112-149/60-94 84.7-103.7 93-100 PATIENT WEIGHT: Weight (lb): Weight (oz): Weight (kg): 70.000 Physical Exam General appearance: confused, frail, alert, awak e Head/Eyes: clear cornea, EOMI Cardiovascular: normal heart sounds, regular rat e rhythm Respiratory: decreased breath sounds Abdomen: non-tender, normal bowel sounds Extremities: moves all, normal capillary refill Musculoskeletal: full range of motion Neuro/DRIP BOX TENDER: alert, CNII-XII intact, normal speech Diagnosis, Assessment Plan Consultants: infectious disease Plan discussed with: patient, nurse Time spent: Time spent on patient care (minutes): 45 >50% spent on counseling/coordination of care: yes Free Text DxA P Notes Free text DxA P notes: Cavitary lesions - seen on CT - pulmonary consulted with plans for bronchosco py - rule out TB - patient started on Unasyn will discontinue an d broaden antibiotics to vancomycin and zosyn Leukocytosis - likely secondary to above - continue antibiotics and monitor for improvem ent unintentional weight loss - possibly secondary lung disease, workup in pr ogress abdominal pain /right upper quadrant pain - CTA reviewed - may benefit from CTAP - pulmonary following accelerated hypertension - not currently receiving any BP medications - defer to Internal Medicine protein calorie malnutrition -albumin 3.1 on admission -continue to encouraged increased p.o. nutritio n and monitor for improvement at 1638 RPT #:[id number] END OF REPORT 2022-02-26 13:53:00-00:00 [facility] ([facility] Pulmonology Progress Note REPORT#:[id number] REPORT STATUS: Signed DATE:02/26/22 TIME: 1353 PATIENT: CINDY SINGH UNIT #: [id number] ROOM/BED: [place] [address] : 60 AGE: 61 SEX: M ATTEND: May Le MD ADM AUTHOR: Porfirio Cool MD * ALL edits or amendments must be made on the [employer]/computer document * Subjective Chief complaint: chest pain, cough Patient reports: Yes: ambulating, chest pain, congestion, cough, shortness of breath, sputum, tolerating diet. No: coughin g blood, feeling better, fever, resting comfortably , wheezing. Nursing reports: Yes: pain. Comments: Patient seen and examined. Bronchoscopy done today. Chest pain and sputum production continues. Objective General VS/I O: Last Documented: Result Date Time Pulse Ox 94 02/26 1115 B/P 149/70 02/26 1115 O2 Delivery Simple mask 02/26 111 O2 Flow Rate 4 02/26 1115 Pulse 71 02/26 1115 Resp 36 02/26 1115 B/P Mean 98.8 02/26 0757 Temp 99.5 02/26 0757 PATIENT WEIGHT: Weight (lb): Weight (oz): Weight (kg): 70.000 Physical Exam General appearance: chronically ill appearing, a wake Head/eyes: atraumatic, normocephalic, PERRL, EOM I, normal conjunctiva/sclera ENT: ENT: moist mucosal membranes, caries, poor dent ition Neck: no JVD, no lymphadenopathy Cardiovascular: normal S1/S2, regular rate rhyth m, no murmur, no rub Respiratory/chest: decreased breath soun ds (right > left), rales, tenderness ( exquisite, right lateral chest) Abdomen: soft, non-tender, normal bowel sounds, no distention, no mass/ organomegaly Genitourinary: no urinary catheter Extremities: moves all, no clubbing, no cyanosis , no edema Musculoskeletal: muscle atrophy Neuro/DRIP BOX TENDER: CNII-XII intact, no motor deficits Lymphatics: neck normal, no lymphadenopathy Psychiatry: normal affect, n ormal judgment/insight, normal mood, not homicidal, not suicidal Results Results: labs reviewed, vital signs reviewed, vi krystle signs stable, CT results reviewed, current med profile rev'd Treatment Prophylaxis Treatment Prophylaxis Oxygen: room air (SpO2 95%), simple mask Anti-infectives: ampicillin (with sulbactam) Sedation: morphine Diagnosis, Assessment Plan Free Text A P: 1. Cavitary Lung Lesion -with mild leukocytosis, low grade fever, chills /sweats, pleuritic chest pain without hilar or mediastinal lymphadenopathy. W/ ipsilateral effusion. Few small bilateral granulomas. -Airborne Isolation for now -Sputum Cx AFB. Consider bronch for further eval . -Tb rule out vs more likely abscess vs malignanc y -Empiric abx 2. Pleuritic Chest Pain -Symptomatic pain control -Troponin-I neg -Likely Pleuritic 3. Unintentional weight loss -Etiology? Possibly due to lung process above -Workup in progress 4. Abdominal Discomfort -Etiology? Possibly contributing to wt loss? -No recent BM per pt. RUQ guarding. -CTA Chest shows very small portion of abd but t here is some distended bowel loops seen. -May need to check CTAP 5. Accelerated HTN -Optimize BP meds Continue antibiotics. Continue mucolytics. at 1411 RPT #:[id number] END OF REPORT 2022-02-26 13:52:00-00:00 [id number] [facility] Main and [facility] [address] [place], [place] [address] PATIENT NAME: CINDY SINGH ADMIT DATE: 02/25 ACCOUNT NO: [id number] DISCHARGE DATE: ROOM NO: E.451 REPORT TYPE: OPERATIVE REPORT DATE OF : AGE: 61 SEX: M ADMITTING PHYSICIAN:Merlyn Le MD ATTENDING PHYSICIAN:Merlyn Le MD OPERATION DATE: 02/26/2022 PULMONARY BRONCHOSCOPY NOTE OPERATIVE PROCEDURE: Flexible fiberoptic broncho scopy with bronchial washings and bronchoalveolar lavage of right upper lobe. PREOPERATIVE DIAGNOSIS: Right upper lobe cavity cough. POSTOPERATIVE DIAGNOSIS: Right upper lobe cavity cough with bronchitis. SURGEON: Porfirio Cool MD SUPPLY CHAIN TECH: ANESTHESIA: ESTIMATED BLOOD LOSS: None. SPECIMENS COLLECTED bronchial washings and bronc hoalveolar lavage fluid. OPERATIVE PROCEDURE AND FINDINGS: The pr ocedure was performed in the patient's hospital room because of AFB isolation concerns. Equipment was brought to the bedside. Sedation was provided by Dr. García garibay from the anesthesia service and he will be documenting his activities separately. T he patient had a preoperative timeout performed. Consent had been obtained pre viously after discussion of risks and potential benefits with the patient. T he patient had received sedation, a bite block had b een introduced into the mouth. The patient received supplemental oxygen by facemask. The pat ient had a flexible video bronchoscope inserted through the bite block into the posterior pharynx without difficulty. The scope was advanced to the level of the laryn x. Epiglottis was visualized and appeared normal. The vocal cords also appear ed normal. There was modest mucoid secretions present in the pharynx and at the laryngeal level. Lidocaine 2% was instilled onto the cords to achieve topic al anesthesia. Cords were passed with no difficulty. Trachea was entered. There were noted to be scant secretions in the trachea, w hich were white and mucoid in appearance. There was no active bleeding. Tommy was sharp. Lidocaine 2% was instilled into the trachea and bronchial tree to achieve topical an esthesia. The scope was advanced to the tommy and advanced into the rig ht bronchial tree. Right main bronchus, right upper lobe, right middle lobe, a nd right lower lobes were explored sequentially to segmental levels. There was no mass seen. No gross irregularity. There was generalized mild edema i n the right upper lobe and right PATIENT NAME: CINDY SINGH [id number] middle lobe, particularly. The right lower lobe appeared much less affected. There were moderate mucoid secretions. These bogdan eared white, and were coming from the right upper lobe anterior segment, but elsewhere secretions were clear in appearance. Photographs were taken for documentation purposes. Bronchoscope was then moved to the left side. Le ft main bronchus, left lower lobe and left upper lobe were explored sequentia lly to segmental levels. No mass was seen. There was no gross irregularity n oted. There were scant secretions noted. No significant edema was noted . No gross irregularity was seen. Photographs were taken for documentation. Bronchoscope was then replaced in the right upper lobe. Washings were obtained. Bronchoalveolar lavage was taken from the right upper lo be anterior segment, which appeared to be associated with the patient's cavitary mass l esion. The patient had 30 mL of saline introduced into the right upper lobe a nterior segment. About 12 mL were aspirated back from this volume, an d placed in a separate container for a lavage fluid. After all washings were aspirated, the procedure was terminated by withdrawal of the bronchoscope. The patient t olerated the procedure satisfactorily and remained in his room with mon itoring post-procedure. Dictated By: Porfirio Cool MD WT: OP:ESHEA/PEDRO/NTS Conf#: [id number]#: [id number] Authenticated and Edited by Porfirio Cool MD On 02/28/22 10:04:21 AM at 1005 PATIENT NAME: CINDY SINGH [id number] 2022-02-26 13:12:00-00:00 [facility] ([facility] Hospitalist Progress Note REPORT#:[id number] REPORT STATUS: Signed DATE:02/26/22 TIME: 2 PATIENT: CINDY SINGH UNIT #: [id number] ROOM/BED: [place] [address] : 60 AGE: 61 SEX: M ATTEND: May Le MD ADM AUTHOR: Eve Vaughan MD * ALL edits or amendments must be made on the [employer]/computer document * Subjective Chief complaint: bronch toda and still under anesthesia while I w as in room no distress Dr. Phillips at bedside 14 point ROS negative unless stated Objective General VS/I O: Vital Signs: Date Time Temp Pulse Resp B/P B/P Pulse O2 O2 F low FiO2 Mean Ox Delivery Rate 02/26 1930 68 18 126/85 99.0 95 Room air 04/06 1505 Simple 6 mask 04/06 1356 37.0 67 18 143/75 98.1 95 Room air 04/06 1115 71 36 149/70 94 Simple 4 mask 04/06 1100 71 41 112/65 97 Simple 4 mask 04/06 1050 77 28 139/80 96 Simple 3 mask 04/06 1046 73 24 139/94 98 Simple 10 mask 04/06 1039 73 21 121/60 98 Simple 10 mask 04/06 1029 64 27 134/74 100 Simple 8 mask 04/06 0757 37.5 70 18 146/75 98.8 95 Room air 04/06 0322 37.1 62 18 116/69 84.7 93 Room air 04/05 2250 37.3 63 18 149/80 102.8 93 Room air PATIENT WEIGHT: Weight (lb): Weight (oz): Weight (kg): 70.000 Medications: Active Meds + DC'd Last 24 Hrs Vancomycin HCl (VANCOMYCIN 1,000 MG VIAL) 1,000 MG Q12H IV Sodium Chloride (SODIUM CHLORIDE 0.9%) 250 ML Piperacillin Sod/Tazobactam Sod (ZOSYN 3.375 GM VIAL) 3.375 GM Q8H IV Sodium Chloride (SODIUM CHLORIDE 0.9% 100 ML) 1 00 ML Miscellaneous Information (VANCOMYCIN PHARMACY T O DOSE) 1 EACH ASDIR IV (CKD) Propofol (DIPRIVAN) 20 ML .STK-MED ONE IV (DC) Lidocaine HCl (XYLOCAINE MPF 2% VIAL) 0 .STK-MED ONE .ROUTE (DC) Propofol (DIPRIVAN) 20 ML .STK-MED ONE IV (DC) Morphine Sulfate (morphine SULFATE) 4 MG Q4H PRN PRN IV Guaifenesin (MUCINEX ER) 600 MG Q12HR PO Lactobacillus Acidophilus (BACID) 2 CAP BID PO Multivitamins/Minerals Therapeutic (THERAPEUTIC VITAMIN W MINERALS) 1 TAB DAILY PO Lidocaine (XYLOCAINE) 0 .STK-MED ONE TOPICAL (DC ) Sodium Chloride (SODIUM CHLORIDE) 250 ML .STK-ME D ONE IRR (DC) Ampicillin Sodium/Sulbactam Sodium (UNASYN 3 GM VIAL) 3 GM Q6H IV (DC) Sodium Chloride (SODIUM CHLORIDE 0.9% 100 ML) 1 00 ML Sertraline HCl (ZOLOFT) 50 MG DAILY PO Lisinopril (PRINIVIL OR ZESTRIL) 10 MG DAILY PO Morphine Sulfate (morphine SULFATE) 4 MG Q4H PRN PRN IV (DC) Ondansetron HCl (ZOFRAN 2ML) 4 MG Q6H PRN PRN IV (DC) Nutrition assessment: The data set between the solid lines has been im ported from the dietitian's assessment. Any exceptions have been noted under Provider comments. BMI Calculated: 22.8 Nutrition related diagnosis: Nutrition diagnosis details: Nutrition problem: Nutrition etiology: Nutrition signs and symptoms: Nutrition prescription: Dietitian name: Assessment completed: Provider comments on imported dietitian assessme nt: Physical Exam General appearance: confused, lethargic, sedated Head/Eyes: atraumatic, clear cornea, EOMI, zeynep l conjunctiva/sclera, normal eyelids/periorb., normocephalic, PERRL ENT: normal dentition, normal ear left, normal e ar right, normal nose, normal pharynx, normal sinus Neck: full range of motion, non-tender, normal thyroid, supple/no meningismus, no bruit/NL carotids, no JVD, no masses or swell ing Cardiovascular: normal capillary refill, normal heart sounds Respiratory: chest wall tenderness, decreased br eath sounds, clear to auscultation, no distress Abdomen: non-tender, normal bowel sounds , soft, no distention, no guarding, no hernia, no mass/organomegaly, no rebound Extremities: moves all, normal capillary refill, normal range of motion, no edema Musculoskeletal: normal inspection, painless ran ge of motion Skin: dry, intact Lymphatics: axilla normal, inguinal normal, neck normal, no lymphadenopathy Diagnosis, Assessment Plan Free Text DxA P Notes Free text DxA P notes: 1. Cavitary Lung Lesion Tb rule out ID consult pulm following symptomatic pain control 2. Accelerated HTN start lisinopril iv prn 3. Weight loss due to above increase po intake 02/[address] Cool and discussed resu lts, likely abscess, follow culture wean o2 abx and change per results Electronically Signed by Eve Vaughan MD on at 2136 RPT #:[id number] END OF REPORT 2022-02-25 22:26:00-00:00 [facility] ([facility]) Pulmonary Consult Note - Brief REPORT#:[id number] REPORT STATUS: Signed DATE:02/25/22 TIME: 2225 PATIENT: CINDY SINGH UNIT #: [id number] ROOM/BED: [place] [address] : 60 AGE: 61 SEX: M ATTEND: May Le MD ADM AUTHOR: Porfirio Cool MD * ALL edits or amendments must be made on the [employer]/computer document * See Addendum History of Present Illness HPI Reason for consult: cavitary right lung mass Chief complaint: chest pain, cough History of present illness: Pt is a 61yo male with HTN presenting to [facility] ED with SOB Chest pain. He reports one week h/o worsening SOB cough / URI s ymptoms. Associated symptoms include: productive cough (s putum thick and green, denies blood but had coughed up large amounts of purulent sputum while I was in room and it does appear to possibly have a very slight pink streak mixed in ), 12lb weight loss over the past month due to decreased appetite and food av ersion / does not taste well, fevers, chills, symptoms worse at night. He is p resenting now due to onset of atypical R sided chest pain under his axilla, chest pain seems positional, worse with inspiration and movement. Patient reports he lost his a few m onths ago and is now living in a correction. History is difficult to obtain as patient is in discomfort and not the best historian. He says there is someone who wor ks at the correction who has been coughing and having similar symptoms to him . When asked how he knew her symptoms were similar he stated he overheard her telling another worker her symptoms are "really just bad at night b ut during the day she feels better and just has this cough". To note, patient has a h/o depression with suicidal ideation, ED note reviewed. On arrival to ED pt with BP 187/98, HR 74, RR 20, SpO2 100% on room air, 37.7 C temp. Labs show leukoytosis, eleva juan jose inr at 1.2, Opiods on UTox, CT chest shows large 5.6 x 4.2 cm thick-walled cavitary lesion. History - Adult longitudinal Additional medical history: Depression, kidney stone Additional surgical history: None Alcohol use: Alcohol use (occ.) Drug use: Cocaine, Marijuana Smoking status: Smoking status for patients 13 years old or old er: Never Smoker Allergies: Coded Allergies: Sulfa (Sulfonamide Antibioti cs) (SULFA(SULFONAMIDE ANTIBIOTICS)) (Mild, RASH 03/14) Pulmonary Brief Consult Note Free Text A P: Cavitary Lung Lesion -with mild leukocytosis, low grade fever, chills /sweats, pleuritic chest pain without hilar or mediastinal lymphadenop athy. Mostly homogenous consolidation. -Airborne Isolation -Sputum Cx AFB -Tb rule out -Empiric abx Atypical Chest Pain -Symptomatic pain control -Trop neg -Likely Pleuritic (but possible GI component?) Unintentional weight loss -Etiology? Possibly 2/2 above -Workup in progress Abdominal Discomfort -Etiology? Possibly contributing to wt loss? -No recent BM per pt -CTA Chest shows very small portion of abd but there is notable distended bowel loops below diaphragm. -Recommend CTAP in am Accelerated HTN -Optomize BP meds Thank you for the consult. We appreciate the opprotunity to participate in the care of your patient. We will provide further re commendations as able. General appearance: chronically ill appearing, a wake Head/eyes: atraumatic, normocephalic, PERRL, EOM I, normal conjunctiva/sclera ENT: ENT: moist mucosal membranes, caries, poor dent ition Neck: no JVD, no lymphadenopathy Cardiovascular: normal S1/S2, regular rate rhyth m, no murmur, no rub Respiratory/chest: decreased breath soun ds (right > left), rales, tenderness ( exquisite, right lateral chest) Abdomen: guarding (RUQ), soft, non-tender, zeynep l bowel sounds, no distention Genitourinary: no urinary catheter Extremities: moves all, no clubbing, no cyanosis , no edema Musculoskeletal: muscle atrophy Neuro/DRIP BOX TENDER: CNII-XII intact, no motor deficits Lymphatics: neck normal, no lymphadenopathy Psychiatry: anxious, not homicidal, not suicidal Full note dictated: No (to follow) at 2231 Addendum 1: 02/25/222230 by Porfirio Cool MD Foul-testing sputum may favor lung abscess. Will continue to treat with antibiotics, probabl y clindamycin. Bronchoscopy might be useful to obtain further s pecimens for AFB, culture and cytology. Discussed with patient and he is agreeable. at 2233 Addendum 2: 02/25/222241 by Porfirio Cool MD Up-to-Date recommended Unasyn over clindamycin i nitially, unless penicillin allergic. at 2242 [facility] #:[id number] END OF REPORT 2022-02-25 15:36:00-00:00 [facility] ([facility]) Pulmonary Consultation Note REPORT#:[id number] REPORT STATUS: Signed DATE:02/25/22 TIME: 1535 PATIENT: CINDY SINGH UNIT #: [id number] ROOM/BED: [place] [address] : 60 AGE: 61 SEX: M ATTEND: May Le MD ADM AUTHOR: Shirley Brown * ALL edits or amendments must be made on the [employer]/computer document * Shirley Brown 02/25/22 1536: History of Present Illness HPI Reason for consult: Abnormal chest imaging Free Text HPI Notes Free Text HPI Notes: Pt is a 61yo male with HTN presenting to [facility] ED with SOB Chest pain. He reports one week h/o worsening SOB cough / URI s ymptoms. Associated symptoms include: productive cough (s putum thick and green, denies blood but had coughed up large amounts of purulent sputum while I was in room and it does appear to possibly have a very slight pink streak mixed in ), 12lb weight loss over the past month due to decreased appetite and food av ersion / does not taste well, fevers, chills, symptoms worse at night. He is p resenting now due to onset of severe atypical R sided ches t pain under his axilla, chest pain seems pleuritic, is positional worse with inspiration and movemen t. Patient reports he lost his a few m onths ago and is now living in a correction. History is difficult to obtain as patient is in discomfort and not the best historian. He says there is someone who wor ks at the correction who has been coughing and having similar symptoms to him . When asked how he knew her symptoms were similar he stated he overheard her telling another worker her symptoms are "really just bad at night b ut during the day she feels better and just has this cough". To note, patient has a h/o depression with suicidal ideation, ED note from prior years reviewed. No current reports of disabeling depression or suicidal thoughts. On arrival to ED pt with BP 187/98, HR 74, RR 20, SpO2 100% on room air, 37.7 C temp. Labs show leukoytosis, elevated inr at 1.2, Opio ds on UTox. CT chest shows a large irreg ularly bordered but mostly spherical, thick walled ( personally measured wall in multiple frames ranging from approx. 1cm to 1.9cm), total size of 5.6 x 4.2 cm c avitary lesion in the RUL basilar segment, abbuting the pleura. Lesion appears to have some air flui d inerface. There is some surrounding atelectasis but no other dense conso lidation or significant necrosis. There is a few sma ll calcified granulomas noted bilaterally. There is also an ipsilateral small effusion noted . No prosthetic valves or pacer wires. No recent surgeries. Past Medical History: Hypertension Depression Past Social History: Reports some smoking history but unable to eval accurate pack year due to current state of health. Pt says he used to smok e some, never a full pack per day, only some, not much, didn't specify length of smoking history. Denies etoh or illicit drus use now or in the [facility]. UTox is positive for opiods. Reports his a few months ago, e moional and teary eyed when sharing this information. Sa ys he has had multiple life hardships since then and lost his home / now ling in a correction. Has a daughter but has not spoken with her in quite some time. Review of systems: General: Reports fever chills Eyes: No recent visual change, redness, discharg e. ENT: No recent hearing loss, nasal conge stion, sinus problems, or sore throat. Respiratory: See HPI. Cardiovascular: See HPI. No peripheral edema. Gastrointestinal: See HPI. Genitourinary: No dysuria, urgency, or hematuria . Musculoskeletal: No arthralgias, myalgias, joint pain or swelling. Neurologic: No seizures, syncope, or focal weakn ess. Skin: No rash, swelling, bruising. Physical examination: General: Chronically ill appearing, awake, alert , anxious, constantly moving/ unable to get comfortable. HEENT: NC/AT, PERRL, EOMI, No JVD, Trachea Midli ne. Missing some natural dentition, poor dentition w/ caries. Respiratory: Diminished navneet th sounds R>L, scattered rales, TTP especially over R lateral chest. Symmetric to expansion. No resp iratory distress. Cardiac: RRR, without murmur, rub, or gallop. Abdomen: Exam limited as he is guarding. General ly soft. + bowel sounds. No HSM or masses appreciable. Extremities:No Edema. No cyanosis, clubbing. Lymphatic: No palpable lymphadenopathy. Neurologic: Cranial nerves II through XII are gr ossly intact. Musculoskeletal: Atrophy. Psychiatry: Brief/limited. Anxious, not suicidal . History - Adult longitudinal Additional medical history: Depression, kidney stone Additional surgical history: None Alcohol use: Alcohol use (occ.) Drug use: Cocaine, Marijuana Smoking status: Smoking status for patients 13 years old or old er: Never Smoker Allergies: Coded Allergies: Sulfa (Sulfonamide Antibioti cs) (SULFA(SULFONAMIDE ANTIBIOTICS)) (Mild, RASH 05/14) Objective Physical Exam Vitals: Last Documented: Result Date Time Pulse Ox 95 02/25 826 B/P 160/82 02/25 826 B/P Mean 108 02/25 826 O2 Delivery Room air 02/25 826 Pulse 73 02/25 826 Resp 17 02/25 826 Temp 99.1 02/24 2225 Results Findings/Data: Laboratory Tests 02/24/22 2308: [Embedded Image Not Available] Laboratory Tests 02/25 2308 Chemistry Sodium (134.0 - 147.0 mmol/l) 135 Potassium (3.6 - 5.2 mmol/L) 4.0 Chloride (98.0 - 107.0 mmol/l) 99 Carbon Dioxide (21.0 - 33.0 mmol/l) 27.0 Anion Gap (0 - 20) 13.0 BUN (7.0 - 18.0 mg/dl) 11 Creatinine (0.60 - 1.30 mg/dL) 1.01 Est GFR ( Amer) (97 - 109 mL/min) 97 Est GFR (Non-Af Amer) (80 - 90 mL/min) 80 Glucose (70.0 - 110.0 mg/dl) 153 H Calcium (8.0 - 10.5 mg/dl) 8.9 Magnesium (1.8 - 2.4 mg/dl) 1.9 Total Bilirubin (0.0 - 1.0 mg/dl) 0.3 Direct Bilirubin (0.0 - 0.3 mg/dl) 0.1 AST (15 - 37 Units/L) 14 L ALT (12.0 - 78.0 Units/L) 19 Total Alk Phosphatase (50.0 - 136.0 Units/L) 79 Troponin I (0.00 - 0.06 NG/ML) <0.02 B-Natriuretic Peptide (5 - 100 PG/ML) 44 Total Protein (6.4 - 8.2 gm/dL) 7.8 Albumin (3.2 - 4.7 gm/dl) 3.1 L Lipase (65.0 - 230.0 Units/L) 54 L Laboratory Tests 02/24 2308 Coagulation INR (0.89 - 1.14) 1.2 H PT Patient/Control Mix (9.9 - 12.8 SECONDS) 13. 8 H Laboratory Tests 02/24 2308 Hematology WBC (4.5 - 11.0 K/mm3) 14.3 H RBC (4.40 - 5.90 M/mm3) 4.00 L Hgb (13.0 - 17.0 gm/dL) 11.6 L Hct (36.0 - 48.0 %) 35.9 L MCV (80.0 - 94.0 UM3) 89.8 MCH (25.5 - 32.5 UUG) 29.0 MCHC (29.0 - 35.5 gm/dL) 32.3 RDW (11.5 - 15.0 %) 13.1 Plt Count (150 - 400 K/mm3) 379 MPV (7.4 - 10.4 fl) 9.9 Neut % (Auto) (49.0 - 76.0 %) 74.6 Lymph % (Auto) (23.0 - 38.0 %) 11.5 L Rice % (Auto) (1.0 - 10.0 %) 12.4 H Eos % (Auto) (1.0 - 5.0 %) 0.9 L Baso % (Auto) (0.0 - 1.0 %) 0.3 Neut # (Auto) (2.4 - 6.3 K/mm3) 10.6 H Lymph # (Auto) (1.2 - 4.0 K/mm3) 1.6 Rice # (Auto) (0.0 - 0.6 K/mm3) 1.8 H Eos # (Auto) (0.0 - 0.7 K/MM3) 0.1 Baso # (Auto) (0.0 - 0.2 K/mm3) 0.0 Absolute Nucleated RBC (0.00 - 0.01 X10 3uL) 0. 00 Immature Gran % (0.0 - 0.4 %) 0.3 Nucleated RBC % (0.0 - 0.1 %) 0.0 Immature Gran # (0.00 - 0.07 x10 3/uL) 0.04 Laboratory Tests 02/24 2242 Serology SARS CoV-2 RNA Rapid NATHAN (NEGATIVE) Negative Laboratory Tests 02/25 200 Toxicology Urine Opiates Screen (NEGATIVE) POSITIVE H Urine Methadone Screen (NEGATIVE) NEGATIVE Urine Barbiturates (NEGATIVE) NEGATIVE Ur Phencyclidine Scrn (NEGATIVE) NEGATIVE Ur Amphetamines Screen (NEGATIVE) NEGATIVE U Benzodiazepines Scrn (NEGATIVE) NEGATIVE Urine Cocaine Screen (NEGATIVE) NEGATIVE Urine Cannabinoids (NEGATIVE) NEGATIVE Laboratory Tests 02/25 200 Urines Urine Color YELLOW Urine Appearance CLEAR Urine pH (5.0 - 9.0) 6.0 Ur Specific [place] (1.000 - 1.030) 1.015 Urine Protein (NEGATIVE mg/dl) NEGATIVE Urine Glucose (UA) (NORMAL mg/dl) NORMAL Urine Ketones (NEGATIVE mg/dl) NEGATIVE Urine Blood (NEGATIVE Vega/micL) 10 Vega/micL H Urine Nitrite (NEGATIVE) NEGATIVE Urine Bilirubin (NEGATIVE mg/dL) NEGATIVE Urine Urobilinogen (NORMAL mg/dl) NORMAL Ur Leukocyte Esterase (NEGATIVE Eloy/micL) NEGAT JAEL Urine RBC (0 - 3 RBC/HPF) 0-2 Urine WBC (NONE WBC/HPF) 0-3 Ur Epithelial Cells (0 - 3 EPI/HPF) 0-3 Urine Bacteria (NONE) FEW Microbiology Date/Time Procedure - Status Source Growth 02/24 2242 Influenza Virus Type B Antigen - COM P NASOPHARG 02/24 2242 Influenza Virus Type A Antigen - COM P NASOPHARG Radiology Data: Recent Impressions: RADIOLOGY - XR CHEST 1 V 02/24 2330 Report Impression - Status: SIGNED Entered: 02/24/2022 2340 IMPRESSION: There is a dense opacity seen within the right m id to lower lung zone measuring at least 6 cm possibly reflecting a la rge consolidation or mass, recommend further evaluation with CT of e chest Impression By: [email or web address] - Pam Ward M.D. CAT SCAN - CT CHEST W/CONTRAST 02/25 0107 Report Impression - Status: SIGNED Entered: 02/25/2022 0119 Impression: Large 5.6 x 4.2 cm thick-walled cavitary lesion. Differential diagnosis includes fungal infection (including T B) or malignancy. TB should be considered the primary diagnosis until proven otherwise. Small right pleural effusion., Impression By: [email or web address] - Breana Beck Diagnosis, Assessment Plan Free Text DxA P Notes Free Text DxA P Notes: Cavitary Lung Lesion -with mild leukocytosis, low grade fever, chills /sweats, pleuritic chest pain without hilar or mediastinal lymphadenopathy. W/ ipsilateral effusion. Few small bilateral granulomas. -Airborne Isolation for now -Sputum Cx AFB. Consider bronch for further eval . -Tb rule out vs more likely abscess vs malignanc y -Empiric abx Atypical Chest Pain -Symptomatic pain control -Trop neg -Likely Pleuritic (unable to r/o GI cause at thi s time) Unintentional weight loss -Etiology? Possibly 2/2 above -Workup in progress Abdominal Discomfort -Etiology? Possibly contributing to wt loss? -No recent BM per pt. RUQ guarding. -CTA Chest shows very small portion of abd but t here is some distended bowel loops seen. -May need to check CTAP Accelerated HTN -Optomize BP meds Thank you for the consult. We appreciate the opprotunity to participate in the care of your patient. We will provide further re commendations as able. Porfirio Cool 02/26/22 0003: Diagnosis, Assessment Plan Diagnosis, Assessment Plan Additional comments: Patient seen and examined. Detailed notes in brief consult form. at 0003 Electronically Signed by Shirley Brown on 0 02/26/22 at 1150 RPT #:[id number] END OF REPORT 2022-02-25 09:59:00-00:00 [facility] ([facility]) Hospitalist History Physical REPORT#:[id number] REPORT STATUS: Signed DATE:02/25/22 TIME: 958 PATIENT: CINDY SINGH UNIT #: [id number] ROOM/BED: [place] [id number] : 60 AGE: 61 SEX: M ATTEND: May Le MD ADM AUTHOR: Eve Vaughan MD * ALL edits or amendments must be made on the [employer]/computer document * History of Present Illness HPI Chief complaint: SOB HPI: 61yo male with HTN comes in with four days of URI symptoms according to patient. He had productive cough with out blood in sputum, 12lb weight loss over the past month due to decreased appetite and food does no t taste well. Yesterday he started to have R sided chest pain under his axi lla and feels like something popped so that is why he came to the ER. Again t here is no Er note to see why patient came initially and patient is a poor his [place]. Labs show leukoytosis, elevated inr at 1.2, CT c hest shows large cavitary lesion. History Past Medical Surgical Hx Additional medical history: Depression, kidney stone Additional surgical history: None Social History Alcohol use: Alcohol use (occ.) Drug use: Cocaine, Marijuana Smoking status: Smoking status for patients 13 years old or old er: Never Smoker Medication/Allergy-Vaccine Hx Allergies: Coded Allergies: Sulfa (Sulfonamide Antibioti cs) (SULFA(SULFONAMIDE ANTIBIOTICS)) (Mild, RASH 03/14) Review of Systems Unable to obtain due to: poor historian Physical Exam VS/I O: Vital Signs Date Temp Pulse Resp B/P B/P Mean Pulse Ox FiO2 02/24-02/25 37.3 67-79 16-28 148-201/78-107 101 -135 95-100 Last Documented: Result Date Time Pulse Ox 95 / 0826 B/P 160/82 02/25 0826 B/P Mean 108 / 0826 O2 Delivery Room air 02/25 08 Pulse 73 / 0826 Resp 17 02/25 0826 Temp 37.3 02/24 2225 24 hour I O ending at 0700: 02/25 0700 02/24 1900 Intake Total Output Total Balance Patient 70 kg Weight Weight Stated/Reported Measurement Method Patient Weight and BMI Weight (kg): 70.000 BMI: 22.8 General appearance: alert, awake Head/Eyes: atraumatic, clear cornea, EOMI, zeynep l conjunctiva/sclera, normal eyelids/periorb., normocephalic, PERRL ENT: normal dentition, normal ear left, normal e ar right, normal nose, normal pharynx, normal sinus Neck: full range of motion, non-tender, normal thyroid, supple/no meningismus, no bruit/NL carotids, no JVD, no masses or swell ing Cardiovascular: normal capillary refill, normal heart sounds Respiratory: chest wall tenderness, decreased br eath sounds, clear to auscultation, no distress Abdomen: non-tender, normal bowel sounds , soft, no distention, no guarding, no hernia, no mass/organomegaly, no rebound Extremities: moves all, normal capillary refill, normal range of motion, no edema Musculoskeletal: normal inspection, painless ran ge of motion Neuro/DRIP BOX TENDER: alert, oriented X 3 Skin: dry, intact Lymphatics: axilla normal, inguinal normal, neck normal, no lymphadenopathy Results Findings/Data: Laboratory Tests: 02/25 02/24 02/24 0200 2308 2242 Chemistry Sodium (134.0 - 147.0 mmol/l) 135 Potassium (3.6 - 5.2 mmol/L) 4.0 Chloride (98.0 - 107.0 mmol/l) 99 Carbon Dioxide (21.0 - 33.0 mmol/l) 27.0 Anion Gap (0 - 20) 13.0 BUN (7.0 - 18.0 mg/dl) 11 Creatinine (0.60 - 1.30 mg/dL) 1.01 Est GFR ( Amer) (97 - 109 mL/min) 97 Est GFR (Non-Af Amer) (80 - 90 mL/min) 80 Glucose (70.0 - 110.0 mg/dl) 153 H Calcium (8.0 - 10.5 mg/dl) 8.9 Magnesium (1.8 - 2.4 mg/dl) 1.9 Total Bilirubin (0.0 - 1.0 mg/dl) 0.3 Direct Bilirubin (0.0 - 0.3 mg/dl) 0.1 AST (15 - 37 Units/L) 14 L ALT (12.0 - 78.0 Units/L) 19 Total Alk Phosphatase (50.0 - 136.0 Units/L) 79 Troponin I (0.00 - 0.06 NG/ML) <0.02 B-Natriuretic Peptide (5 - 100 PG/ML) 44 Total Protein (6.4 - 8.2 gm/dL) 7.8 Albumin (3.2 - 4.7 gm/dl) 3.1 L Lipase (65.0 - 230.0 Units/L) 54 L Coagulation INR (0.89 - 1.14) 1.2 H PT Patient/Control Mix (9.9 - 12.8 SECONDS) 13 .8 H Hematology WBC (4.5 - 11.0 K/mm3) 14.3 H RBC (4.40 - 5.90 M/mm3) 4.00 L Hgb (13.0 - 17.0 gm/dL) 11.6 L Hct (36.0 - 48.0 %) 35.9 L MCV (80.0 - 94.0 UM3) 89.8 MCH (25.5 - 32.5 UUG) 29.0 MCHC (29.0 - 35.5 gm/dL) 32.3 RDW (11.5 - 15.0 %) 13.1 Plt Count (150 - 400 K/mm3) 379 MPV (7.4 - 10.4 fl) 9.9 Neut % (Auto) (49.0 - 76.0 %) 74.6 Lymph % (Auto) (23.0 - 38.0 %) 11.5 L Rice % (Auto) (1.0 - 10.0 %) 12.4 H Eos % (Auto) (1.0 - 5.0 %) 0.9 L Baso % (Auto) (0.0 - 1.0 %) 0.3 Neut # (Auto) (2.4 - 6.3 K/mm3) 10.6 H Lymph # (Auto) (1.2 - 4.0 K/mm3) 1.6 Rice # (Auto) (0.0 - 0.6 K/mm3) 1.8 H Eos # (Auto) (0.0 - 0.7 K/MM3) 0.1 Baso # (Auto) (0.0 - 0.2 K/mm3) 0.0 Absolute Nucleated RBC (0.00 - 0.01 X10 3uL) 0. 00 Immature Gran % (0.0 - 0.4 %) 0.3 Nucleated RBC % (0.0 - 0.1 %) 0.0 Immature Gran # (0.00 - 0.07 x10 3/uL) 0.04 Serology SARS CoV-2 RNA Rapid NATHAN (NEGATIVE) Negative Toxicology Urine Opiates Screen (NEGATIVE) POSITIVE H Urine Methadone Screen (NEGATIVE) NEGATIVE Urine Barbiturates (NEGATIVE) NEGATIVE Ur Phencyclidine Scrn (NEGATIVE) NEGATIVE Ur Amphetamines Screen (NEGATIVE) NEGATIVE U Benzodiazepines Scrn (NEGATIVE) NEGATIVE Urine Cocaine Screen (NEGATIVE) NEGATIVE Urine Cannabinoids (NEGATIVE) NEGATIVE Urines Urine Color YELLOW Urine Appearance CLEAR Urine pH (5.0 - 9.0) 6.0 Ur Specific [place] (1.000 - 1.030) 1.015 Urine Protein (NEGATIVE mg/dl) NEGATIVE Urine Glucose (UA) (NORMAL mg/dl) NORMAL Urine Ketones (NEGATIVE mg/dl) NEGATIVE Urine Blood (NEGATIVE Vega/micL) 10 Vega/micL H Urine Nitrite (NEGATIVE) NEGATIVE Urine Bilirubin (NEGATIVE mg/dL) NEGATIVE Urine Urobilinogen (NORMAL mg/dl) NORMAL Ur Leukocyte Esterase (NEGATIVE Eloy/micL) NEGAT JAEL Urine RBC (0 - 3 RBC/HPF) 0-2 Urine WBC (NONE WBC/HPF) 0-3 Ur Epithelial Cells (0 - 3 EPI/HPF) 0-3 Urine Bacteria (NONE) FEW Laboratory Tests 02/24/22 2308: [Embedded Image Not Available] Radiology data: Recent Impressions: RADIOLOGY - XR CHEST 1 V 02/24 2330 Report Impression - Status: SIGNED Entered: 02/24/2022 2340 IMPRESSION: There is a dense opacity seen within the right m id to lower lung zone measuring at least 6 cm possibly reflecting a la rge consolidation or mass, recommend further evaluation with CT of th e chest Impression By: [email or web address] - Pam Ward M.D. CAT SCAN - CT CHEST W/CONTRAST 02/25 0107 Report Impression - Status: SIGNED Entered: 02/25/2022 0119 Impression: Large 5.6 x 4.2 cm thick-walled cavitary lesion. Differential diagnosis includes fungal infection (including T B) or malignancy. TB should be considered the primary diagnosis until proven otherwise. Small right pleural effusion., Impression By: [email or web address] - Breana Beck Diagnosis, Assessment Plan Free Text A P: 1. Cavitary Lung Lesion Tb rule out ID consult pulm following symptomatic pain control 2. Accelerated HTN start lisinopril iv prn 3. Weight loss due to above increase po intake Electronically Signed by Eve Vaughan MD on at [address] [facility] #:[id number] END OF REPORT 2022-02-25 03:23:00-00:00 [facility] ([facility] EMERGENCY PROVIDER REPORT REPORT#:[id number] REPORT STATUS: Signed DATE:02/25/22 TIME: 322 PATIENT: CINDY SINGH UNIT #: [id number] ROOM/BED: [place] [address] AGE: 61 SEX: M PCP PHYS: No Primary or Family Ph ysician SERVICE AUTHOR: Anjum Lafleur MD * ALL edits or amendments must be made on the [employer]/computer document * HPI-Dyspnea/Wheezing Free Text HPI Notes Free Text HPI Notes 61-year-old male presents em ergency department complaints of shortness of breath , chest discomfort and purulent sputum productio n. Patient denies nausea, vomiting, diarrhea or known sick contacts. He al so reports pleuritic pain due to uncontrolled cough. General Initial Greet Date/Time 02/24/222225 Presentation Chief Complaint Cough, Shortness of breath )( Sudden in Onset? No Risk-Dyspnea/Wheezing Risk Stratification Coronary Artery Disease Risk factors reviewed, H ypertension Pulmonary Embolism Risk factors reviewed, No ris k factors Review of Systems ROS Statements All systems rev neg except as marked. Focused Review of Systems Respiratory Reports: Cough, productive, Hemoptysis, Pleuriti c pain, Shortness of breath. Past Medical History - Adult Stated Complaint PAIN RIGHT CHEST WITH INSPIRATI ON AND MOVEMENT Allergies Coded Allergies: lisinopril (Intermediate, ANGIOEDEMA 03/06/22) Sulfa (Sulfonamide Antibioti cs) (SULFA(SULFONAMIDE ANTIBIOTICS)) (Mild, RASH 05/14) Home Medications Reported Medications SERTRALINE (ZOLOFT) 50 MG PO DAILY Additional Medical History Depression, kidney stone Additional Surgical History None Alcohol Use Alcohol use (occ.) Drug Use Cocaine, Marijuana Smoking status: Smoking status for patients 13 years old or old er: Never Smoker Physical Exam Vital Signs Vital Signs First Documented: Result Date Time Pulse Ox 100 02/24 2225 B/P 187/98 02/24 2225 B/P Mean 127 02/24 2225 O2 Delivery Room air 02/24 2225 Temp 37.3 02/24 2225 Pulse 74 02/24 2225 Resp 16 02/24 2225 Last Documented: Result Date Time Pulse Ox 95 02/25 300 B/P 162/96 02/25 300 B/P Mean 118 02/25 300 O2 Delivery Room air 02/25 300 Pulse 76 02/25 300 Resp 22 02/25 300 Temp 37.3 02/24 2225 Review of Vital Signs Reviewed, Vital signs abno rmal Focused PE General/Const General/Const Awake, Alert Ears/Nose/Throat Ears/Nose/Throat Airway patent, Mucous membrane s moist, Pharynx NL MS Neck Neck Atraumatic, Supple, No meningismus, Full r natalie of motion, No swelling, Non-tender, No masses Resp/Chest Respiratory/Chest Atraumatic Wheezing/Retractions Wheeze insp/exp diffuse. Rales/Rhonchi Rales bilateral bases. Cardiovascular Cardiovascular Heart rate NL, Regular rhythm, H eart sounds NL, Peripheral circulation NL Abdomen/GI Abdomen/GI Soft, Non-tender, No guarding, No re bound MS Back Back Inspection NL, Non-tender, No CVA tenderne ss MS Lower Extrem Lower Ext/Pelvis/MS Inspection NL, No swelling, Non-tender, No erythema, No deformity, Neurologic intact, No edema Skin Skin Color NL, No rash, Warm, Dry, Turgor NL Neurologic Neurologic Oriented X3, Speech NL, No motor def icits, No sensory deficits Interpretation Diagnostics Lab Results Interpretation Results Laboratory Tests 02/24/228: [Embedded Image Not Available] Laboratory Tests: 02/258 2242 Chemistry Sodium (134.0 - 147.0 mmol/l) 135 Potassium (3.6 - 5.2 mmol/L) 4.0 Chloride (98.0 - 107.0 mmol/l) 99 Carbon Dioxide (21.0 - 33.0 mmol/l) 27.0 Anion Gap (0 - 20) 13.0 BUN (7.0 - 18.0 mg/dl) 11 Creatinine (0.60 - 1.30 mg/dL) 1.01 Est GFR ( Amer) (97 - 109 mL/min) 97 Est GFR (Non-Af Amer) (80 - 90 mL/min) 80 Glucose (70.0 - 110.0 mg/dl) 153 H Calcium (8.0 - 10.5 mg/dl) 8.9 Magnesium (1.8 - 2.4 mg/dl) 1.9 Total Bilirubin (0.0 - 1.0 mg/dl) 0.3 Direct Bilirubin (0.0 - 0.3 mg/dl) 0.1 AST (15 - 37 Units/L) 14 L ALT (12.0 - 78.0 Units/L) 19 Total Alk Phosphatase (50.0 - 136.0 Units/L) 79 Troponin I (0.00 - 0.06 NG/ML) <0.02 B-Natriuretic Peptide (5 - 100 PG/ML) 44 Total Protein (6.4 - 8.2 gm/dL) 7.8 Albumin (3.2 - 4.7 gm/dl) 3.1 L Lipase (65.0 - 230.0 Units/L) 54 L Coagulation INR (0.89 - 1.14) 1.2 H PT Patient/Control Mix (9.9 - 12.8 SECONDS) 13. 8 H Hematology WBC (4.5 - 11.0 K/mm3) 14.3 H RBC (4.40 - 5.90 M/mm3) 4.00 L Hgb (13.0 - 17.0 gm/dL) 11.6 L Hct (36.0 - 48.0 %) 35.9 L MCV (80.0 - 94.0 UM3) 89.8 MCH (25.5 - 32.5 UUG) 29.0 MCHC (29.0 - 35.5 gm/dL) 32.3 RDW (11.5 - 15.0 %) 13.1 Plt Count (150 - 400 K/mm3) 379 MPV (7.4 - 10.4 fl) 9.9 Neut % (Auto) (49.0 - 76.0 %) 74.6 Lymph % (Auto) (23.0 - 38.0 %) 11.5 L Rice % (Auto) (1.0 - 10.0 %) 12.4 H Eos % (Auto) (1.0 - 5.0 %) 0.9 L Baso % (Auto) (0.0 - 1.0 %) 0.3 Neut # (Auto) (2.4 - 6.3 K/mm3) 10.6 H Lymph # (Auto) (1.2 - 4.0 K/mm3) 1.6 Rice # (Auto) (0.0 - 0.6 K/mm3) 1.8 H Eos # (Auto) (0.0 - 0.7 K/MM3) 0.1 Baso # (Auto) (0.0 - 0.2 K/mm3) 0.0 Absolute Nucleated RBC (0.00 - 0.01 X10 3uL) 0. 00 Immature Gran % (0.0 - 0.4 %) 0.3 Nucleated RBC % (0.0 - 0.1 %) 0.0 Immature Gran # (0.00 - 0.07 x10 3/uL) 0.04 Serology SARS CoV-2 RNA Rapid NATHAN (NEGATIVE) Negative Toxicology Urine Opiates Screen (NEGATIVE) POSITIVE H Urine Methadone Screen (NEGATIVE) NEGATIVE Urine Barbiturates (NEGATIVE) NEGATIVE Ur Phencyclidine Scrn (NEGATIVE) NEGATIVE Ur Amphetamines Screen (NEGATIVE) NEGATIVE U Benzodiazepines Scrn (NEGATIVE) NEGATIVE Urine Cocaine Screen (NEGATIVE) NEGATIVE Urine Cannabinoids (NEGATIVE) NEGATIVE Urines Urine Color YELLOW Urine Appearance CLEAR Urine pH (5.0 - 9.0) 6.0 Ur Specific [place] (1.000 - 1.030) 1.015 Urine Protein (NEGATIVE mg/dl) NEGATIVE Urine Glucose (UA) (NORMAL mg/dl) NORMAL Urine Ketones (NEGATIVE mg/dl) NEGATIVE Urine Blood (NEGATIVE Vega/micL) 10 Vega/micL H Urine Nitrite (NEGATIVE) NEGATIVE Urine Bilirubin (NEGATIVE mg/dL) NEGATIVE Urine Urobilinogen (NORMAL mg/dl) NORMAL Ur Leukocyte Esterase (NEGATIVE Eloy/micL) NEGAT JAEL Urine RBC (0 - 3 RBC/HPF) 0-2 Urine WBC (NONE WBC/HPF) 0-3 Ur Epithelial Cells (0 - 3 EPI/HPF) 0-3 Urine Bacteria (NONE) FEW Microbiology: Date/Time Procedure - Status Source Growth 02/24 2242 Influenza Virus Type B Antigen - COM P NASOPHARG 02/24 2242 Influenza Virus Type A Antigen - COM P NASOPHARG Recent Impressions: RADIOLOGY - XR CHEST 1 V 02/240 Report Impression - Status: SIGNED Entered: 02/24/20220 IMPRESSION: There is a dense opacity seen within the right m id to lower lung zone measuring at least 6 cm possibly reflecting a la rge consolidation or mass, recommend further evaluation with CT of th e chest Impression By: [email or web address] - Pam Ward M.D. CAT SCAN - CT CHEST W/CONTRAST 02/25 107 Report Impression - Status: SIGNED Entered: 02/25/2022 011 Impression: Large 5.6 x 4.2 cm thick-walled cavitary lesion. Differential diagnosis includes fungal infection (including T B) or malignancy. TB should be considered the primary diagnosis until proven otherwise. Small right pleural effusion., Impression By: [email or web address] - Breana Beck Lab Imaging Statement Laboratory radiographic studies reviewed and con sidered in the medical decision-making. Re-Evaluation MDM Free Text MDM Notes Free Text MDM Notes 61-year-old male presents with pleuritic pain an d productive cough DDx includes not limited to DVT, pneumonia, lung cancer, empyema, influenza )( Re-Evaluation/Progress #1 Text/Dict Note Labs remarkable for elevated glucose, el evated white blood cell count. Imaging showed dense opacity in the right mid to lower lung zone and CT showed a thick- walled cavitary lesion consistent with malignanc y or TB. The patient was admitted for further management and care. Brian t received antibiotics for pneumonia evaluation by pulmonology while in the hospital to rule out tuberculosis. Time of Re-Eval 0320 )( Re-Eval Status Improved ED Course Medication(s) Ordered Medication(s) Ordered: Central Nervous System Agents Sig/Antonina Start time Last Medication Dose Route Stop Time Status Admin Morphine Sulfate 4 MG X1ED STA 02/24 2234 DC IV 02/24 2235 2305 Diagnostic Agents Sig/Antonina Start time Last Medication Dose Route Stop Time Status Admin Iopamidol 0 .STK-MED ONE 02/25 0032 DC 02/25 IV 0108 Patient Discharge Departure Vital Signs/Condition Vital Signs First Documented: Result Date Time Pulse Ox 100 02/24 2225 B/P 187/98 02/24 2225 B/P Mean 127 02/24 2225 O2 Delivery Room air 02/24 2225 Temp 37.3 02/24 2225 Pulse 74 02/24 2225 Resp 16 02/24 2225 Last Documented: Result Date Time Pulse Ox 95 02/25 0300 B/P 162/96 02/25 0300 B/P Mean 118 02/25 0300 O2 Delivery Room air 02/25 0300 Pulse 76 02/25 0300 Resp 22 02/25 030 Temp 37.3 02/24 2225 All vital signs available at the time of this en try have been reviewed. Condition Stable, Improved Clinical Impression Clinical Impression Primary Impression: Consolidation of middle lobe of lung Secondary Impressions: Cavitary lesion of lung Time of Impression 323 Disposition Decision Admit Admit Physician Name Merlyn Le MD Admit Physician Hospitalist Request Time 324 Request Date 02/25/22 )( Admission Accepts Yes )( Accepted Time 324 )( Accepted Date 02/25/22 Call Information will see patient, agrees with eval, agrees with plan Discharge/Care Plan (Auto) Prescriptions Current Visit Scripts AMOXICILLIN/CLAV K (AUGMENTIN 875/125 MG) 875 MG PO Q12H AMOXICILLIN/CLAV K (AUGMENTIN 875/125 MG) 875 M G PO Q12H #42 TABS Critical Care Time Spent (minutes): 60 Services Performed Patient management by meColten spent at bedside, Reviewing test results, Reviewing imaging, Discussing mac ent care, Documentation in record Separately billable procedures excluded from colten tammie. CC Note 1 Total critical care time [60 ] minutes. Total critical care time documented does not include time spent on separately billed proc edures or the services of residents, students, nurses or physician assista nts. I personally saw and examined the patient. I have reviewed all diagno stic interpretations and treatment plans as written. I was present for the perry portions of any procedures performed and the inclusive time noted in any critical care statement. Critical care time includes patient m anagement by me, time spent at the patients bedside, time to review lab and imaging results, discussing patient care, documentation in the medical record, and time spent with the f amily or caregiver. Quality Measures Smoking Cessation Screened, tobacco user, Tobacc o cess intervention at 0432 RPT #[id number] END OF REPORT
[2023-05-02] MEDS ORDERED: KETOROLAC 30 MG/ML INJ ONE (22:38)
--- NOTE | 2023-05-03 00:23 | EDPHYS ---
Physician Documentation [facility] Name: Kwabena Kellogg Age: 62 yrs Sex: Male : 1960 Arrival Date: 05/02/2023 Time: 21:52 Bed 13 Private MD: ED Physician Sergio Grullon HPI: 05/03 00:36 This 62 yrs old Male presents to ER via Ambulatory with complaints of Leg Pain. kb 00:36 The patient presents with pain, swelling. The complaints affect the right knee and kb medial aspect of right knee and medial aspect of right thigh. Context: The problem was sustained [facility], resulted from an unknown cause, the patient can fully bear weight, the patient is able to ambulate. Onset: The symptoms/episode began/occurred this morning. Modifying factors: The symptoms are alleviated by nothing. the symptoms are aggravated by nothing. Associated signs and symptoms: Pertinent positives: swelling, Pertinent negatives calf tenderness, fever, nausea, numbness, rash, tingling, vomiting, warmth, weakness. Treatment prior to arrival includes: no previous treatment. Severity of symptoms: At their worst the symptoms were moderate, in the emergency department the symptoms are unchanged. The patient has not experienced similar symptoms in the past. The patient has not recently seen a physician. Historical: - Allergies: 05/02 22:09 Sulfa (Sulfonamide Antibiotics); pf1 - PMHx: 22:09 depression; Anxiety; PTSD; pf1 - PSHx: 22:09 None; pf1 - Immunization history:: Adult Immunizations up to date, Client reports having NOT received the Covid vaccine. Last tetanus immunization: > 10 years ago Flu vaccine is not up to date. - Social history:: Smoking status: Patient reports the use of cigarette tobacco products, denies chronic smoking, but will smoke occasionally, Patient/guardian denies using alcohol, street drugs, Patient stated in drug rehab for cocaine abuse, clean for 52 days.. ROS: 05/03 00:32 Constitutional: Negative for fever, chills, and weight loss. kb MS/extremity: Positive for pain, swelling, of the medial aspect of right thigh, medial aspect of right knee and right knee. All other systems are negative. Exam: 00:32 Constitutional: This is a well developed, well nourished patient who is awake, alert, kb and in no acute distress. Head/Face: Normocephalic, atraumatic. ENT: Moist Mucous membranes Cardiovascular: Regular rate and rhythm with a normal S1 and S2. No gallops, murmurs, or rubs. No pulse deficits. Respiratory: Respirations even and unlabored. No increased work of breathing. Talking in full sentences Abdomen/GI: Soft, non-tender. No distention Skin: Warm, dry with normal turgor. Normal color. Neuro: Awake and alert, GCS 15, oriented to person, place, time, and situation. Moves all extremities. Normal gait. 00:32 Musculoskeletal/extremity: Extremities: grossly normal except: noted in the right knee and medial aspect of right knee and medial aspect of right thigh: pain, swelling, tenderness, ROM: intact in all extremities, Circulation is intact in all extremities. Sensation intact. DVT Exam: negative Homans' sign noted on exam, no appreciated bluish discoloration, no erythema, no increased warmth, pain, swelling, tenderness. Vital Signs: 05/02 22:05 BP 158 / 87; Pulse 70; Resp 18; Temp 97.3(O); Pulse Ox 100% ; Weight 66.22 kg; Height 5 pf1 ft. 9 in. ; Pain 10/10; 23:57 BP 146 / 86; Pulse 74; Resp 17 S; Pulse Ox 99% on R/A; lg3 22:05 Body Mass Index 21.56 (66.22 kg, 175.26 cm) pf1 22:05 Pain Scale: Adult pf1 MDM: 21:59 Patient medically screened. kb 05/03 00:32 Differential diagnosis: dvt, joint effusion, superficial thrombophlebitis, bakers cyst. kb Data reviewed: vital signs, nurses notes. Counseling: I had a detailed discussion with the patient and/or guardian regarding: the historical points, exam findings, and any diagnostic results supporting the discharge/admit diagnosis, radiology results, the need for outpatient follow up, a family practitioner, to return to the emergency department if symptoms worsen or persist or if there are any questions or concerns that arise at home. ED course: pt started experiencing pain and swelling to right forearm after initial US of lower extremity. Became very anxious and requested US of upper extremity as well. . 05/02 22:06 Order name: US Extremity Venous Unilateral Ltd kb 05/02 23:00 Order name: UPPER EXTREMITY VENOUS UNILATE EDMS 05/03 00:21 Order name: Glenroy Wrap; Complete Time: 00:51 kb Administered Medications: 05/02 22:32 Drug: Ketorolac IM 30 mg Route: IM; Site: left deltoid; lg3 05/03 00:23 Follow up: Response: No adverse reaction lg3 00:51 Drug: Cyclobenzaprine PO 10 mg Route: PO; lg3 00:52 Follow up: Response: No adverse reaction lg3 Disposition Summary: 05/03/23 00:22 Discharge Ordered Location: Home kb Condition: Stable kb Diagnosis - Synovial cyst of popliteal space [Reyez], right knee kb - Pain in right forearm kb - Pain in right leg kb Followup: kb - With: Emergency Department - When: As needed - Reason: Worsening of condition Followup: kb - With: Private Physician - When: 2 - 3 days - Reason: Recheck today's complaints, Continuance of care, Re-evaluation by your physician Discharge Instructions: - Discharge Summary Sheet kb - Reyez Cyst kb - Musculoskeletal Pain kb Forms: - Medication Reconciliation Form kb - Thank You Letter kb - Antibiotic Education kb - Prescription Opioid Use kb Signatures: Dispatcher [employer] EDMS Joanie Tucker, REAL TIME OPERATOR-C REAL TIME OPERATOR-Elsa Perez, RN RN lg3 Nena Kulkarni, RN RN pf1 Corrections: (The following items were deleted from the chart) 05/02 22:59 22:56 Extremity Venous Uni Ltd+[email or web address].[email or web address] ordered. EDMS EDMS
--- NOTE | 2023-05-03 00:23 | ER ---
Nurse's Notes [facility] Name: Kwabena Kellogg Age: 62 yrs Sex: Male : 1960 Arrival Date: 05/02/2023 Time: 21:52 Bed 13 Private MD: Diagnosis: Synovial cyst of popliteal space [Reyez], right knee;Pain in right forearm;Pain in right leg Presentation: 05/02 22:05 Chief complaint: Patient states: right lower medial leg pain of 10,onset today. Patient pf1 denies any injury. Patient arrived from [facility], call for nut picker upon discharge. Coronavirus screen: Vaccine status: Patient reports being unvaccinated. Client denies travel out of the [place] in the last 14 days. At this time, the client does not indicate any symptoms associated with coronavirus-19. Ebola Screen: Patient negative for fever greater than or equal to 101.5 degrees Fahrenheit, and additional compatible Ebola Virus Disease symptoms. Initial Sepsis Screen: Does the patient meet any 2 criteria? No. Patient's initial sepsis screen is negative. Does the patient have a suspected source of infection? No. Patient's initial sepsis screen is negative. Risk Assessment: Do you want to hurt yourself or someone else? Patient reports no desire to harm self or others. 22:05 Method Of Arrival: Ambulatory pf1 22:05 Acuity: HELEN 3 pf1 Historical: - Allergies: 22:09 Sulfa (Sulfonamide Antibiotics); pf1 - PMHx: 22:09 depression; Anxiety; PTSD; pf1 - PSHx: 22:09 None; pf1 - Immunization history:: Adult Immunizations up to date, Client reports having NOT received the Covid vaccine. Last tetanus immunization: > 10 years ago Flu vaccine is not up to date. - Social history:: Smoking status: Patient reports the use of cigarette tobacco products, denies chronic smoking, but will smoke occasionally, Patient/guardian denies using alcohol, street drugs, Patient stated in drug rehab for cocaine abuse, clean for 52 days.. Screenin:34 [facility] ED Fall Risk Assessment (Adult) History of falling in the last 3 months, lg3 including since admission No falls in past 3 months (0 pts). Abuse screen: Denies threats or abuse. Denies injuries from another. Nutritional screening: No deficits noted. Tuberculosis screening: No symptoms or risk factors identified. Assessment: 22:34 General: Appears in no apparent distress. uncomfortable, Behavior is calm, cooperative. lg3 Pain: Complains of pain in right leg. Neuro: No deficits noted. Reinoso Agitation-Sedation Scale (RASS): 0 - Alert and Calm Level of Consciousness is awake, alert, obeys commands, Oriented to person, place, time, situation. Cardiovascular: No deficits noted. Denies chest pain, shortness of breath, Capillary refill < 3 seconds Clubbing of nail beds is absent JVD is absent Patient's skin is warm and dry. Respiratory: No deficits noted. Airway is patent Respiratory effort is even, unlabored, Respiratory pattern is regular, symmetrical. GI: No deficits noted. No signs and/or symptoms were reported involving the gastrointestinal system. Abdomen is flat, non-distended. : No deficits noted. No signs and/or symptoms were reported regarding the genitourinary system. EENT: No deficits noted. No signs and/or symptoms were reported regarding the EENT system. Derm: No deficits noted. No signs and/or symptoms reported regarding the dermatologic system. Skin is intact, is healthy with good turgor, Skin is dry, Skin is normal, Skin temperature is warm. Musculoskeletal: No deficits noted. Reports numbness in right leg pain in right leg. 23:57 Reassessment: Patient appears in no apparent distress at this time. No changes from lg3 previously documented assessment. Patient and/or family updated on plan of care and expected duration. Pain level reassessed. Patient is alert, oriented x 3, equal unlabored respirations, skin warm/dry/pink. Vital Signs: 22:05 BP 158 / 87; Pulse 70; Resp 18; Temp 97.3(O); Pulse Ox 100% ; Weight 66.22 kg; Height 5 pf1 ft. 9 in. ; Pain 10/10; 23:57 BP 146 / 86; Pulse 74; Resp 17 S; Pulse Ox 99% on R/A; lg3 22:05 Body Mass Index 21.56 (66.22 kg, 175.26 cm) pf1 22:05 Pain Scale: Adult pf1 ED Course: 21:54 Patient arrived in ED. bp1 21:59 Joanie Tucker FNP-C is PHCP. kb 21:59 Sergio Grullon MD is Attending Physician. kb 22:09 Triage completed. pf1 22:34 Elsa Mcclelland, RN is Primary Nurse. lg3 22:34 Patient has correct armband on for positive identification. Placed in gown. Bed in low lg3 position. Call light in reach. Side rails up X 1. Client placed on continuous cardiac and pulse oximetry monitoring. NIBP monitoring applied. Door closed. Noise minimized. Warm blanket given. 22:41 US Extremity Venous Unilateral Ltd In Process Unspecified. EDMS 05/03 00:23 UPPER EXTREMITY VENOUS UNILATE Sent. lg3 00:48 UPPER EXTREMITY VENOUS UNILATE In Process Unspecified. EDMS 00:52 Arm band placed on right wrist. lg3 00:52 No provider procedures requiring assistance completed. Patient did not have IV access lg3 during this emergency room visit. Administered Medications: 05/02 22:32 Drug: Ketorolac IM 30 mg Route: IM; Site: left deltoid; lg3 05/03 00:23 Follow up: Response: No adverse reaction lg3 00:51 Drug: Cyclobenzaprine PO 10 mg Route: PO; lg3 00:52 Follow up: Response: No adverse reaction lg3 Medication: 00:52 VIS not applicable for this client. lg3 Outcome: 00:22 Discharge ordered by MD. kb 00:52 Discharged to Rehab Facility lg3 00:52 Condition: stable 00:52 Discharge instructions given to patient, Instructed on discharge instructions, follow up and referral plans. Demonstrated understanding of instructions, follow-up care. 00:52 Patient left the ED. lg3 Signatures: Dispatcher [employer] EDIA Joanie Tucker, JEB-Vicki CANAL LOCK TENDER CHIEF OPERATOR-CkElsa Del Valle, RN RN lg3 Iradia Young Pamala, RN RN pf1
[2023-05-03] MEDS ORDERED: CYCLOBENZAPRINE 10 MG TAB ONE (00:33)
[2023-05-03 01:45] VITALS: TEMP 97.3
[2023-05-03 01:47] VITALS: BP 146/86; O2SAT 99
--- NOTE | 2023-05-04 11:54 | RAD REPORT ---
EXAM DESCRIPTION: US - Extremity Venous Uni Ltd - 05/02/2023 10:40 pm CLINICAL HISTORY: PAIN in medial right thigh. COMPARISON: None. TECHNIQUE: Survey ultrasound imaging of the deep venous system of the right lower extremity was perf ormed including mejia scale, color, and spectral Doppler evaluation with manufacturer's service representative images obtaine d. Segmental venous compression and calf vein augmentation were performed. FINDINGS: Common femoral vein: Patent without thrombus. Normal response to augmentation. Normal re spiratory phasicity is indirect evidence of central patency. Cephalad greater saphenous vein: Patent without thrombus. Normal response to augmentation. Normal r espiratory phasicity is indirect evidence of central patency. Cephalad profunda femoral vein: Patent without thrombus. Femoral vein: Patent without thrombus. Normal response to augmentation. Popliteal vein: Patent without thrombus. Normal response to augmentation. Calf veins: Patent without thrombus. Small cyst in the popliteal fossa measures 2.1 x 2 x 0.8 cm. IMPRESSION: 1. Negative for right lower extremity deep venous thrombosis. 2. Small Reyez's cyst. Electronically signed by: Maya Miller MD 05/02/2023 10:56 PM CDT Due to temporary technical issues with the PACS/Fluency reporting system, reports are being signed by the in house radiologist without review as a courtesy to ensure prompt reporting. The interpreting r adiologist is fully responsible for the content of the report.
--- NOTE | 2023-05-04 11:55 | RAD REPORT ---
EXAM DESCRIPTION: US - UPPER EXTREMITY VENOUS UNILATE - 05/03/2023 12:46 am CLINICAL HISTORY: PAIN UPPER EXTREMITY VENOUS UNILATERAL TECHNIQUE: Right upper extremity venous vascular ultrasound was performed by a family physician. Grayscal e, color flow, and spectral analysis images were included in the assessment. COMPARISON: None FINDINGS: There is no evidence of deep vein thrombosis involving the right upper extremity. All of t he imaged deep veins demonstrate normal compressibility and spontaneous flow. Visualized superficial veins are also patent. IMPRESSION: No evidence of deep venous thrombosis in the right upper extremity. Visualized superfici al veins are also patent. Electronically signed by: Melissa Perez MD 05/03/2023 1:00 AM CDT Due to temporary technical issues with the PACS/Fluency reporting system, reports are being signed by the in house radiologist without review as a courtesy to ensure prompt reporting. The interpreting r adiologist is fully responsible for the content of the report.
== END 2023-05-03 00:52 | disposition home or self-care (01) ==
LOC: ER 21:52
DX: M71.21 Synovial cyst of popliteal space [Baker], right knee (principal); M79.631 Pain in right forearm; Z88.2 Allergy status to sulfonamides
CPT/HCPCS: 93971; 96372; 99284